=== PATIENT | male | born 1965 | race Caucasian/White ===

== ENCOUNTER 2017-01-31 05:36 | Inpatient (IN) ==
[2017-01-31] MEDS ORDERED: methylPREDNISolone 125 MG/2 ML VIAL IVP ONE (05:46)
[2017-01-31] MEDS ORDERED: Ipratropium/Albuterol Neb 3 ML IH ONE (05:46)
--- NOTE | 2017-01-31 05:51 | Emergency Department Note ---
Disposition Clinical Impression: COPD exacerbation Disposition: Admitted As Inpatient Condition: Fair SOB HPI - General Chief Complaint: ED Shortness of Breath/Dyspnea Stated Complaint: VINAY Time Seen by Provider: 01/31/17 05:46 Source: patient Mode of arrival: ambulatory Limitations: no limitations Nursing Notes Reviewed: Yes Vital Signs Reviewed: Yes - History of Present Illness Patient here for evaluation of dyspnea that started 3 days ago. Patient has had productive clear sputum. No fevers or chills. Patient's was seen at the [place] [facility] has been using his albuterol every 3 hours. Continuing to use his at home Symbicort. Is on 2 L of home oxygen continuously. Worsening dyspnea on exertion. No chest pain. - Related Data Home Medications Medication Instructions Recorded Confirmed Albuterol Inhaler 1 inh IH Q4H PRN 06/15/15 08/09/15 Albuterol Neb [Proventil Neb] 2.5 mg IH Q4HR 08/11/15 08/12/15 Previous Rx's Medication Instructions Recorded Albuterol Sulfate [Proair 90 mcg IH Q4H #1 aer.pow.ba 08/10/15 Respiclick] ALPRAZolam [Xanax 0.5 MG Tablet] 0.5 mg PO QID PRN #12 tablet 08/13/15 Hydrochlorothiazide [Microzide] 12.5 mg PO DAILY #30 capsule 08/13/15 Lactobacillus [Culturelle] 1 each PO BID #14 cap.sprink 08/13/15 Metoprolol [Lopressor] 25 mg PO BID #60 tablet 08/13/15 Nicotine Patch [Nicoderm] 21 mg TD DAILY #28 patch.td24 08/13/15 Symbicort 1 inh IH Q12H #0 08/13/15 levoFLOXacin [Levaquin] 500 mg PO DAILY #5 tablet 08/13/15 predniSONE [PredniSONE] 20 mg PO BIDWM #10 tablet 08/13/15 Allergies Allergy/AdvReac Type Severity Reaction Status Date / Time No Known Allergies Allergy Verified 08/09/15 23:34 Review of Systems: CONSTITUTIONAL: No weight loss, fever, chills, weakness or fatigue. HEENT: Eyes: No visual changes. Ears, Nose, Throat: No hearing loss, difficulty talking or unable to swallow. SKIN: No rash or itching. CARDIOVASCULAR: No chest pain, chest pressure or chest discomfort. No palpitations or edema. RESPIRATORY: shortness of breath, cough, clear sputum. GASTROINTESTINAL: No anorexia, nausea, vomiting or diarrhea. No abdominal pain or blood. GENITOURINARY: No burning on urination or hematuria. NEUROLOGICAL: No headache, dizziness, syncope, paralysis, ataxia, numbness or tingling in the extremities. No change in bowel or bladder control. MUSCULOSKELETAL: No muscle pain, back pain, joint pain or stiffness. Past Medical History - Past Medical History Medical history: Reports: COPD, GERD, hypertension, other Surgical history: Reports: non-contributory, other Psychiatric history: Reports: no psych history - Social History Smoking Status: Heavy tobacco smoker Smokeless Tobacco Status: No Alcohol use: Reports: none Drug use: Reports: none, other Physical Exam General appearance: NAD, conversant Eyes: anicteric sclerae, moist conjunctivae; PERRL HENT: Atraumatic; oropharynx clear with moist mucous membranes and no mucosal ulcerations Neck: Normal inspection; Trachea midline; FROM, supple Lungs: Diffuse wheezing throughout bilaterally. CV: RRR, no MRGs Abdomen: Soft, non-tender; no rebound or gaurding Extremities: No peripheral edema or extremity lymphadenopathy Skin: Normal temperature; no rash, ulcers or lesions Psych: Appropriate mood and affect Neuro: alert and oriented to person, place and time Course - Reevaluation(s) Reevaluation #1: She continuing to have tachypnea despite breathing treatments and steroids. Patient was placed on BiPAP and has been admitted to [facility]. the results are not currently ready but the chest x-ray has been read by myself does not show overt pneumonia. Patient has had a cough but only clear sputum production. No fevers. - Consultations Consultation #1: Discussed with hospitalist Dr. Cooper. Patient accepted to [place] for further evaluation and continued monitoring with BiPAP. Vital Signs Temperature 98.3 F 01/31/17 05:41 Pulse Rate 102 01/31/17 05:41 Respiratory Rate 20 01/31/17 05:41 Blood Pressure 160/102 01/31/17 05:41 O2 Sat by Pulse Oximetry 96 01/31/17 05:41 Temperature 98.3 F 01/31/17 05:41 Pulse Rate 105 01/31/17 06:52 Respiratory Rate 20 01/31/17 07:12 Blood Pressure 152/99 01/31/17 07:12 O2 Sat by Pulse Oximetry 96 01/31/17 06:55 Oxygen Delivery Oxygen Delivery Bipap Shortness of Breath/Dyspnea - Lab Data Result diagrams: 01/31/17 06:05 01/31/17 06:05 Lab Results 01/31/17 01/31/17 01/31/17 Range/Units 06:05 06:05 06:05 WBC 10.9 (4.3-11.1) K/mcL RBC 5.05 (4.19-5.50) M/mcL Hgb 13.7 (12.9-16.9) g/dL Hct 43.1 (37.5-50.1) % MCV 85.3 (83.0-100.0) fL MCH 27.1 L (28.0-33.3) pg MCHC 31.8 (31.6-35.5) g/dL RDW 15.6 H (11.5-14.5) % Plt Count 193 (140-400) K/mcL MPV 11.0 (9.4-12.4) fL Immature Gran % 0.5 (0-4) % Seg Neutrophils % 86.2 % Lymphocytes % 6.3 % Monocytes % 6.9 % Eosinophils % 0.0 % Basophils % 0.1 % Neutrophils # 9.4 H (1.6-8.9) K/mcL Lymphocytes # 0.7 (0.6-4.6) K/mcL Monocytes # 0.8 (0.0-1.3) K/mcL Eosinophils # 0.0 (0.0-0.6) K/mcL Basophils # 0.0 (0.0-0.2) K/mcL VBG pH (7.32-7.42) pH Units VBG pCO2 (41-51) mmHg VBG pO2 (25-40) mmHg VBG HCO3 (21-27) mEq/L Sodium 140 (136-145) mEq/L Potassium 3.7 (3.5-4.5) mEq/L Chloride 100 (98-109) mEq/L Carbon Dioxide 31 H (19-29) mEq/L BUN 23 (8-26) mg/dL Creatinine 0.91 (0.72-1.25) mg/dL Est GFR ( Amer) > 60 (> 60) Est GFR (Non-Af Amer) > 60 (> 60) BUN/Creatinine Ratio 25 (6-26) Glucose 138 H (70-99) mg/dL Calculated Osmolality 296 (280-300) Calcium 9.3 (8.6-10.8) mg/dL Troponin I 0.01 (0-0.03) ng/mL B-Natriuretic Peptide (0-100) pg/mL 01/31/17 01/31/17 Range/Units 06:05 06:05 WBC (4.3-11.1) K/mcL RBC (4.19-5.50) M/mcL Hgb (12.9-16.9) g/dL Hct (37.5-50.1) % MCV (83.0-100.0) fL MCH (28.0-33.3) pg MCHC (31.6-35.5) g/dL RDW (11.5-14.5) % Plt Count (140-400) K/mcL MPV (9.4-12.4) fL Immature Gran % (0-4) % Seg Neutrophils % % Lymphocytes % % Monocytes % % Eosinophils % % Basophils % % Neutrophils # (1.6-8.9) K/mcL Lymphocytes # (0.6-4.6) K/mcL Monocytes # (0.0-1.3) K/mcL Eosinophils # (0.0-0.6) K/mcL Basophils # (0.0-0.2) K/mcL VBG pH 7.36 (7.32-7.42) pH Units VBG pCO2 67 H (41-51) mmHg VBG pO2 35 (25-40) mmHg VBG HCO3 37.9 H (21-27) mEq/L Sodium (136-145) mEq/L Potassium (3.5-4.5) mEq/L Chloride (98-109) mEq/L Carbon Dioxide (19-29) mEq/L BUN (8-26) mg/dL Creatinine (0.72-1.25) mg/dL Est GFR ( Amer) (> 60) Est GFR (Non-Af Amer) (> 60) BUN/Creatinine Ratio (6-26) Glucose (70-99) mg/dL Calculated Osmolality (280-300) Calcium (8.6-10.8) mg/dL Troponin I (0-0.03) ng/mL B-Natriuretic Peptide 30 (0-100) pg/mL Attestation Statement - Attestation Attestation: I, Mayur Velazquez MD, personally evaluated this patient and discussed their management with the resident physician. I reviewed the resident's note and agree with the documented findings, medical decision making, and plan of care. 51-year-old male with history of COPD presents to the emergency department with a complaint of increased shortness of breath over the past 2-3 days. Some increased productive cough with white sputum. No fever. No chest pain. Patient is on home oxygen. He continues to smoke about a pack a day but states for the past 2 days he has been unable to smoke due to shortness of breath. He has never had to be admitted to the hospital for his COPD. On examination patient is a well-developed thin male in moderate respiratory distress. He is awake alert and oriented. There is no cyanosis or diaphoresis. Breath sounds are decreased with diffuse tight bilateral expiratory wheezes. Heart regular rate and rhythm. Abdomen soft and nontender with normal bowel sounds. No pedal edema. Labs reviewed. Chest x-ray negative. After treatment patient states he feels some better but continues to have respiratory distress with tight bilateral wheezes. The hospitalist, Dr. Cooper, was consulted and accepted admission of the patient.
[2017-01-31 06:12] LABS: Basophils % 0.1 %; Hematocrit 43.1 % (37.5-50.1); Hemoglobin 13.7 g/dL (12.9-16.9); Immature Granulocytes % 0.5 % (0-4); Lymphocytes # 0.7 K/mcL (0.6-4.6); Lymphocytes % 6.3 %; Mean Corpuscular HGB Conc 31.8 g/dL (31.6-35.5); Mean Corpuscular Hemoglobin 27.1 pg (28.0-33.3); Mean Corpuscular Volume 85.3 fL (83.0-100.0); Monocytes # 0.8 K/mcL (0.0-1.3); Monocytes % 6.9 %; Neutrophils # 9.4 K/mcL (1.6-8.9); Platelet Count 193 K/mcL (140-400); Red Blood Count 5.05 M/mcL (4.19-5.50); Red Cell Distribution Width 15.6 % (11.5-14.5); Segmented Neutrophils % 86.2 %
[2017-01-31 06:14] LABS: VBG HCO3 37.9 mEq/L (21-27); VBG PH 7.36 pH Units (7.32-7.42)
[2017-01-31 06:26] LABS: BUN/Creatinine Ratio 25 (6-26); Blood Urea Nitrogen 23 mg/dL (8-26); Calcium 9.3 mg/dL (8.6-10.8); Carbon Dioxide 31 mEq/L (19-29); Chloride 100 mEq/L (98-109); Glucose 138 mg/dL (70-99); Osmolality,Calculated 296 (280-300); Potassium 3.7 mEq/L (3.5-4.5); Sodium 140 mEq/L (136-145); eGFR For African Americans > 60 (> 60); eGFR For Non-African Americans > 60 (> 60)
[2017-01-31] MEDS ORDERED: Naloxone 0.4 MG/ML INJ IVP PRN (07:38)
[2017-01-31] MEDS ORDERED: Ipratropium/Albuterol Neb 3 ML IH PRN (07:40)
--- NOTE | 2017-01-31 08:04 | Internal Med History&Physical ---
Date of Encounter: 01/31/17 Time of Encounter: 07:45 Assessment and Plan (1) Acute exacerbation of chronic obstructive airways disease Current visit: Yes Status: Acute We will treat with IV steroids, bronchodilators, O2 supplementation. As patient has had chronic cough with mild clear sputum, no indication for antibiotics. If he does develop fever, we will start him on antibiotics. Admit inpatient. He will stay in hospital for at least 2 midnights. BiPAP as needed. (2) Tobacco abuse Current visit: Yes Status: Chronic Counseled about cessation. We will provide nicotine patch. (3) Acute and chronic respiratory failure with hypoxia Current visit: Yes Status: Acute Due to acute COPD exacerbation. Continue O2 supplementation. Internal Medicine - H&P: HPI Chief complaint: Shortness of breath Admitted From: Emergency Dept Plans for Post Hospital Care: Home History of present illness: Mr. Brink is a 51 year old male with history of chronic tobacco abuse, COPD, chronic respiratory failure, oxygen 2 L/m presented to the ER with complaints of shortness of breath for 2 days. Associated with cough productive of clear sputum. No fever chills or night sweats. No chest pain. Using nebulizers and bronchodilators at home without any improvement in symptoms. Past Med Surg Social Fam HX - Past Medical History Attestation: Yes The following information was validated with the patient. Source: patient, old records reviewed Medical history: COPD, GERD, hypertension, other Psychiatric history: no psych history - Past Surgical History Surgical History: non-contributory, other - Social History Smoking Status: Heavy tobacco smoker Smokeless Tobacco Status: No Alcohol use: none Drug use: none, other - Additional Family History Additional family history: Reviewed and found non contributory at this time Internal Medicine - H&P: Meds Albuterol Inhaler 1 inh IH Q4H PRN 06/15/15 [History] Albuterol Sulfate [Proair Respiclick] 90 mcg IH Q4H #1 aer.pow.ba 08/10/15 [Rx] Albuterol Neb [Proventil Neb] 2.5 mg IH Q4HR 08/11/15 [History] ALPRAZolam [Xanax 0.5 MG Tablet] 0.5 mg PO QID PRN #12 tablet 08/13/15 [Rx] Hydrochlorothiazide [Microzide] 12.5 mg PO DAILY #30 capsule 08/13/15 [Rx] Lactobacillus [Culturelle] 1 each PO BID #14 cap.sprink 08/13/15 [Rx] Metoprolol [Lopressor] 25 mg PO BID #60 tablet 08/13/15 [Rx] Nicotine Patch [Nicoderm] 21 mg TD DAILY #28 patch.td24 08/13/15 [Rx] Symbicort 1 inh IH Q12H #0 08/13/15 [Rx] levoFLOXacin [Levaquin] 500 mg PO DAILY #5 tablet 08/13/15 [Rx] predniSONE [PredniSONE] 20 mg PO BIDWM #10 tablet 08/13/15 [Rx] Allergies No Known Allergies Allergy (Verified 08/09/15 23:34) All Systems PM: A 10-system review of systems was performed and is negative for pertinent findings except as documented above in the HPI. - Constitutional Constitutional: no chills, no fever(s), no night sweats - EENT Eyes: no change in vision, no discharge, no pain, no photophobia Ears: no ear discharge, no ear pain, no tinnitus Nose, mouth and throat: no dysphagia, no nasal discharge, no neck pain, no sore throat - Cardiovascular Cardiovascular ROS IM: dyspnea, no chest pain, no diaphoresis, no lightheadedness, no palpitations, no syncope - Respiratory Respiratory: cough, dyspnea, wheezing, no excessive phlegm production - Gastrointestinal Gastrointestinal: no abdominal pain, no diarrhea, no hematemesis, no hematochezia, no melena, no nausea, no vomiting - Musculoskeletal Musculoskeletal ROS IM: no numbness, no tingling - Integumentary Integumentary IM: no rash, no unusual bruising - Neurological Neurological ROS: no confusion, no convulsions, no focal weakness, no numbness, no tingling, no tremor(s) - Hematologic/Lymphatic Hematologic/Lymphatic: no easy bruising - Constitutional Vitals: Temp Pulse Resp BP Pulse Ox 98.3 F 105 20 152/99 96 01/31/17 05:41 01/31/17 06:52 01/31/17 07:12 01/31/17 07:12 01/31/17 06:55 General appearance: Present: cooperative, mild distress, A&O X 3, answers questions appropriately - Eye Eye exam: Present: EOMI, PERRL, conjuntiva pink, sclera anicteric - Neck Neck exam general surgery: Present: supple, trachea midline. Absent: lymphadenopathy - Respiratory Respiratory exam: Present: accessory muscle use, decreased breath sounds, prolonged expiratory phase, rhonchi, wheezes. Absent: rales - Cardiovascular Cardiovascular exam: Present: RRR, +S1, +S2. Absent: diastolic murmur, gallop, rubs, systolic murmur - GI/Abdominal GI/Abdominal exam: Present: normal bowel sounds, soft, no peritoneal signs. Absent: distended, tenderness - Extremities Exam Extremities exam: Present: warm, radial pulses palpable and symetrical. Absent : calf tenderness, cyanotic, pedal edema - Neurological Exam Neurological exam: Present: alert, oriented X3, no focal deficits, strengths equal and symetr throughout. Absent: facial droop, speech deficit - Skin Skin exam: Present: dry, intact Internal Med - H&P Results - Labs CBC & Chem 7: 01/31/17 06:05 01/31/17 06:05 - Impressions Impressions Chest X-Ray 01/31/17 05:46 IMPRESSION: Negative portable chest. D/ / Viktor Johnson MD / Viktor Johnson MD Interpreting Provider: Viktor Johnson MD
[2017-01-31] MEDS: Ipratropium/Albuterol Neb 3 ML IH SCH ×5 (08:08→23:21)
[2017-01-31] MEDS: Acetaminophen 325 MG TABLET PO PRN ×2 (08:46→17:34)
[2017-01-31] MEDS: methylPREDNISolone 125 MG/2 ML VIAL IVP SCH ×2 (08:46→15:47)
[2017-01-31] MEDS: Nicotine 21 MG PATCH.TD24 TD SCH (09:41)
[2017-01-31] MEDS: ALPRAZolam 0.5 MG TABLET PO PRN ×2 (15:47→22:00)
[2017-02-01] MEDS: methylPREDNISolone 125 MG/2 ML VIAL IVP SCH ×2 (00:01→08:03)
[2017-02-01] MEDS ORDERED: cloNIDine HCl 0.1 MG TABLET PO ONE (00:15)
[2017-02-01] MEDS: amLODIPine 5 MG TABLET PO SCH ×2 (04:05→08:02)
[2017-02-01] MEDS: Ipratropium/Albuterol Neb 3 ML IH SCH ×3 (04:32→11:20)
[2017-02-01] MEDS: ALPRAZolam 0.5 MG TABLET PO PRN (04:59)
[2017-02-01 05:04] LABS: Basophils % 0.1 %; Hemoglobin 13.6 g/dL (12.9-16.9); Immature Granulocytes % 0.6 % (0-4); Lymphocytes # 0.8 K/mcL (0.6-4.6); Lymphocytes % 4.7 %; Mean Corpuscular HGB Conc 31.6 g/dL (31.6-35.5); Mean Corpuscular Hemoglobin 27.5 pg (28.0-33.3); Mean Platelet Volume 11.3 fL (9.4-12.4); Monocytes % 2.1 %; Neutrophils # 15.3 K/mcL (1.6-8.9); Platelet Count 173 K/mcL (140-400); Red Blood Count 4.94 M/mcL (4.19-5.50); Red Cell Distribution Width 15.6 % (11.5-14.5); Segmented Neutrophils % 92.5 %
[2017-02-01 05:06] LABS: Monocytes # 0.4 K/mcL (0.0-1.3)
[2017-02-01 05:21] LABS: BUN/Creatinine Ratio 26 (6-26); Blood Urea Nitrogen 25 mg/dL (8-26); Calcium 9.3 mg/dL (8.6-10.8); Carbon Dioxide 28 mEq/L (19-29); Chloride 103 mEq/L (98-109); Glucose 148 mg/dL (70-99); Osmolality,Calculated 299 (280-300); Potassium 4.4 mEq/L (3.5-4.5); Sodium 141 mEq/L (136-145); eGFR For African Americans > 60 (> 60); eGFR For Non-African Americans > 60 (> 60)
[2017-02-01] MEDS ORDERED: *HR* Enoxaparin 40 MG/0.4 ML SYRINGE SQ SCH (06:00)
[2017-02-01 07:30] VITALS: BP 147/89
[2017-02-01] MEDS: Nicotine 21 MG PATCH.TD24 TD SCH (08:03)
--- NOTE | 2017-02-01 09:41 | Electrocardiograph Report ---
[address] [address] Test Date: 2017-01-31 Pat Name: Yogi Brink Department: 103 Room: 2N11 Gender: M House Mother: TAURUS : 1965 Requested By: Byron Gomez Order Number: [id number] Reading MD: Stephanie Lujan Measurements Intervals [place] Rate: 94 P: 84 [place]: 144 QRS: 80 QRSD: 114 T: 76 QT: 384 QTc: 436 Interpretive Statements SINUS RHYTHM INTRAVENTRICULAR CONDUCTION DELAY Electronically Signed On 02-01-2017 9:40:20 EDT by Stephanie Lujan
--- NOTE | 2017-02-01 11:15 | Internal Med Progress Note ---
Date of Encounter: 02/01/17 Time of Encounter: 11:11 - Assessment and plan (1) Acute and chronic respiratory failure with hypoxia Current Visit: Yes Status: Acute Assessment and plan: Secondary to COPD exacerbation continue IV steroids and bronchodilator support O2 supplementation will continue to closely monitor respiratory status (2) Acute exacerbation of chronic obstructive airways disease Current Visit: Yes Status: Acute Assessment and plan: as listed above (3) DVT prophylaxis Current Visit: No Status: Resolved Assessment and plan: Lovenox SQ (4) Tobacco abuse Current Visit: Yes Status: Chronic Assessment and plan: Smoking cessation counseling provided patient refusing to quit nicotine supplementation therapy provided - Subjective Interval history: Patient seen and examined at bedside. Resting comfortably in bed and reports of feeling better compared to previous day. Noted to have b/l expiratory wheezing however denies any discomfort at this time. - Constitutional Vitals: Temp Pulse Resp BP Pulse Ox 97.9 F 81 18 147/89 95 02/01/17 07:28 02/01/17 07:28 02/01/17 07:37 02/01/17 07:28 02/01/17 07:37 General appearance: Present: cooperative, A&O X 3, no acute distress, underweight, answers questions appropriately - Head Head exam: Present: atraumatic, normocephalic - Eye Eye exam: Present: conjuntiva pink, sclera anicteric - Respiratory Respiratory exam: Present: wheezes (expiratory wheezing). Absent: respiratory distress - Cardiovascular Cardiovascular exam: Present: RRR, +S1, +S2. Absent: diastolic murmur, gallop, rubs, systolic murmur - GI/Abdominal GI/Abdominal exam: Present: normal bowel sounds, soft, no peritoneal signs. Absent: distended, tenderness - Extremities Exam Extremities exam: Present: warm, radial pulses palpable and symetrical. Absent : calf tenderness, cyanotic, pedal edema - Neurological Exam Neurological exam: Present: alert, oriented X3 - Psychiatric Psychiatric exam: Present: normal affect, normal mood Internal Medicine: Result - Labs CBC & Chem 7: 02/01/17 04:49 02/01/17 04:49 Labs: Short CBC 02/01/17 Range/Units 04:49 WBC 16.5 H D (4.3-11.1) K/mcL Hgb 13.6 (12.9-16.9) g/dL Hct 43.0 (37.5-50.1) % Plt Count 173 (140-400) K/mcL Neutrophils # 15.3 H (1.6-8.9) K/mcL BMP 02/01/17 04:49 Sodium 141 Potassium 4.4 Chloride 103 Carbon Dioxide 28 BUN 25 Creatinine 0.96 Glucose 148 H Calcium 9.3 Consult Discharge Plan - Plan Referrals: NO,PCP [Primary Care Provider] -
[2017-02-01] MEDS ORDERED: methylPREDNISolone 125 MG/2 ML VIAL IVP SCH (20:00)
--- NOTE | 2017-02-06 00:17 | Discharge Summary ---
Date of Encounter: 02/01/17 Time of Encounter: 11:11 - Discharge Diagnosis (1) Acute and chronic respiratory failure with hypoxia Priority: Primary Status: Acute (2) Acute exacerbation of chronic obstructive airways disease Priority: Primary Status: Acute (3) DVT prophylaxis Priority: Secondary Status: Resolved (4) Tobacco abuse Priority: Secondary Status: Chronic - Discharge Medications Prescriptions: predniSONE [PredniSONE] 40 mg PO DAILY #7 tablet Home Medications: Albuterol Neb [Proventil Neb] 2.5 mg IH Q4HR PRN 08/11/15 [History] Albuterol Sulfate [Proair Respiclick] 1 - 2 puff IH Q4H PRN 01/31/17 [History] Oxygen 2 l .ROUTE AD 01/31/17 [History] Tamsulosin HCl [Flomax] 0.4 mg PO DAILY 01/31/17 [History] predniSONE [PredniSONE] 40 mg PO DAILY #7 tablet 02/01/17 [Rx] Allergies/Adverse Reactions: Allergies No Known Allergies Allergy (Verified 08/09/15 23:34) Date of admission: 01/31/17 07:38 Primary care physician: PCP NO - Patient Status Disposition: Left Against Medical Advice Condition: Fair - Discharge Instructions Follow Up With: NO,PCP [Primary Care Provider] - Hospital course: Mr. Brink is a 51 year old male - Time Spent with Patient Total time spent providing and/or coordinating discharge services: - Constitutional Vitals: Temp Pulse Resp BP Pulse Ox 97.9 F 81 20 147/89 85 02/01/17 07:28 02/01/17 07:28 02/01/17 11:20 02/01/17 07:28 02/01/17 11:20 General appearance: Present: cooperative, A&O X 3, no acute distress, underweight, answers questions appropriately
== END 2017-02-01 12:08 | disposition left against medical advice (07) | DRG 140 ==
LOC: 2NNU 05:36 → EMEROO 05:36 → 2NNU 07:39
PROVIDERS: ADMIT Internal Medicine Sleep Medicine; ATTEND Internal Medicine

== ENCOUNTER 2017-09-25 00:40 | Inpatient (IN) ==
[2017-09-25 01:09] LABS: Basophils # 0.1 K/mcL (0.0-0.2); Basophils % 0.7 %; Eosinophils # 0.3 K/mcL (0.0-0.6); Eosinophils % 3.1 %; Hematocrit 48.6 % (37.5-50.1); Hemoglobin 15.5 g/dL (12.9-16.9); Immature Granulocytes % 0.3 % (0-4); Lymphocytes # 2.1 K/mcL (0.6-4.6); Lymphocytes % 21.1 %; Mean Corpuscular HGB Conc 31.9 g/dL (31.6-35.5); Mean Corpuscular Hemoglobin 28.1 pg (28.0-33.3); Mean Corpuscular Volume 88.2 fL (83.0-100.0); Mean Platelet Volume 11.1 fL (9.4-12.4); Monocytes # 1.1 K/mcL (0.0-1.3); Monocytes % 11.2 %; Neutrophils # 6.3 K/mcL (1.6-8.9); Platelet Count 169 K/mcL (140-400); Red Blood Count 5.51 M/mcL (4.19-5.50); Segmented Neutrophils % 63.6 %
[2017-09-25 01:30] LABS: BUN/Creatinine Ratio 13 (6-26); Blood Urea Nitrogen 17 mg/dL (6-20); Calcium 9.2 mg/dL (8.6-10.3); Carbon Dioxide 30 mEq/L (23-29); Chloride 104 mEq/L (98-107); Glucose 108 mg/dL (70-105); Osmolality,Calculated 294 (280-300); Potassium 3.5 mEq/L (3.5-5.1); Sodium 141 mEq/L (136-145); eGFR For African Americans > 60 (> 60); eGFR For Non-African Americans > 60 (> 60)
[2017-09-25] MEDS ORDERED: Aspirin 81 MG TAB.CHEW PO ONE (02:37)
--- NOTE | 2017-09-25 03:19 | Emergency Department Note ---
Disposition Clinical Impression: Elevated troponin Dyspnea Qualifiers: Dyspnea type: unspecified Qualified Code(s): R06.00 - Dyspnea, unspecified Disposition: Admitted As Inpatient Condition: Good [facility]errals: [facility] [Primary Care Provider[facility] - Forms: ED Satisfaction Letter Time of Disposition: 03:27 SOB HPI - General Chief Complaint: ED Shortness of Breath/Dyspnea Stated Complaint: brook Time Seen by Provider: 09/25/17 00:53 Source: patient, EMS Limitations: no limitations Nursing Notes Reviewed: Yes Vital Signs Reviewed: Yes - History of Present Illness Patient is a 51-year-old male smoker with known history of COPD presents with difficulty breathing. He mentions that he has had some difficulty breathing over the past 2 or 3 weeks, however this changed acutely around midnight just prior to arrival He mentions he had awoken with a sensation of shortness of breath. He does mention that he uses oxygen at home which she has not been lately. Typically with his difficulty breathing he has some improvement with his albuterol breathing treatments, but has not had any improvement today. He denies any chest pain, diaphoresis, head or neck pain, palpitations, fevers, cough, recent illness. - Related Data Home Medications Medication Instructions Recorded Confirmed Albuterol Neb [Proventil Neb] 2.5 mg IH Q4HR PRN 08/11/15 01/31/17 Albuterol Sulfate [Proair 1 - 2 puff IH Q4H PRN 01/31/17 01/31/17 Respiclick] Oxygen 2 l .ROUTE AD 01/31/17 01/31/17 Tamsulosin HCl [Flomax] 0.4 mg PO DAILY 01/31/17 01/31/17 Previous Rx's Medication Instructions Recorded predniSONE [PredniSONE] 40 mg PO DAILY #7 tablet 02/01/17 Levofloxacin [Levaquin] 750 mg PO DAILY #5 tablet 09/04/17 predniSONE [PredniSONE] 40 mg PO DAILY #10 tablet 09/04/17 Allergies Allergy/AdvReac Type Severity Reaction Status Date / Time No Known Allergies Allergy Verified 08/09/15 23:34 Review of Systems: All systems ED: reviewed and negative except as stated. Constitutional: Denies: fever, chills ENT ED: Denies: throat pain Respiratory: Denies: dyspnea, wheezes Gastrointestinal: Denies: nausea, vomiting Musculoskeletal: Denies: back pain, neck pain Integumentary: Denies: rash Neurological: Denies: headache, weakness Endocrine: Denies: fatigue Hematological/Lymphatic: Denies: easy bleeding Allergic/Immunologic: Denies: facial swelling All systems ED: reviewed and negative except as stated. Review of Systems: As Per HPI Cardiovascular: Reports: as per HPI. Denies: orthopnea, edema, syncope Past Medical History - Past Medical History Medical history: Reports: COPD, GERD, hypertension, other Surgical history: Reports: non-contributory, other Psychiatric history: Reports: no psych history - Social History Smoking Status: Heavy tobacco smoker Smokeless Tobacco Status: No Alcohol use: Reports: none Drug use: Reports: none, other Physical Exam - General Limitations: no limitations General appearance: alert, in no apparent distress - Head Head exam: normocephalic - Eye Eye exam: Present: EOMI. Absent: conjunctival injection - ENT ENT exam: normal oropharynx, TM's normal bilaterally - Neck Neck exam: Present: normal inspection, full ROM - Chest Chest inspection: Present: normal inspection, symmetric chest wall rise - Respiratory Respiratory exam: Present: normal lung sounds bilaterally, wheezes. Absent: respiratory distress - Cardiovascular Cardiovascular exam: Present: regular rate, normal rhythm - Abdominal Exam Abdominal exam: Present: soft, Non-Tender - Extremities Exam Extremities exam: Present: normal inspection, full ROM, normal capillary refill. Absent: pedal edema - Back Exam Back exam: Present: normal inspection, full ROM. Absent: CVA tenderness (R), CVA tenderness (L) - Neurological Exam Neurological exam: Present: alert, oriented X3 - Psychiatric Psychiatric exam: Present: normal affect, normal mood - Skin Skin exam: Present: warm, dry, intact, normal color. Absent: rash, cyanosis, diaphoresis Course Course Narrative: 51-year-old male smoker with known history of COPD presents with dyspnea that has worsened today. Protocol was ordered upon patient's arrival to the department area he does have an elevated troponin. No Known history of chronic kidney disease. EKG shows sinus rhythm. Nonspecific T-wave abnormalities. Patient denies any chest pain. On examination no acute distress, no cyanosis, no diaphoresis. No bilateral lower extremity edema. Appears comfortable in bed. Discussed with Dr. Velazquez who agreed with admission due to dyspnea, and elevated troponin. ASA ordered. - Reevaluation(s) Reevaluation #1: Pt had negative stress test in 2014. Pt denies any other cardiac eval since then. He remains pain free. Vitals stable. Pt discussed with and accepted by hospitalist Dr. Webb Time: 03:28 Vital Signs Temperature 97.6 F 09/25/17 00:43 Pulse Rate 90 09/25/17 00:43 Respiratory Rate 22 09/25/17 00:43 Blood Pressure 169/98 09/25/17 00:43 O2 Sat by Pulse Oximetry 94 09/25/17 00:43 Temperature 97.6 F 09/25/17 00:43 Pulse Rate 71 09/25/17 04:38 Respiratory Rate 20 09/25/17 04:38 Blood Pressure 161/111 09/25/17 04:38 O2 Sat by Pulse Oximetry 95 09/25/17 04:38 Oxygen Delivery Oxygen Delivery Nasal Cannula Shortness of Breath/Dyspnea - MDM Narrative Medical decision making narrative: Laboratory Tests 09/25/17 09/25/17 09/25/17 00:45 00:45 00:45 WBC 10.0 RBC 5.51 H Hgb 15.5 Hct 48.6 MCV 88.2 MCH 28.1 MCHC 31.9 RDW 14.0 Plt Count 169 MPV 11.1 Immature Gran % 0.3 Seg Neutrophils % 63.6 Lymphocytes % 21.1 Monocytes % 11.2 Eosinophils % 3.1 Basophils % 0.7 Neutrophils # 6.3 Lymphocytes # 2.1 Monocytes # 1.1 Eosinophils # 0.3 Basophils # 0.1 Sodium 141 Potassium 3.5 Chloride 104 Carbon Dioxide 30 H BUN 17 Creatinine 1.27 Est GFR ( Amer) > 60 Est GFR (Non-Af Amer) > 60 BUN/Creatinine Ratio 13 Glucose 108 H Calculated Osmolality 294 Lactic Acid 1.8 Calcium 9.2 Troponin I B-Natriuretic Peptide 09/25/17 09/25/17 00:45 00:45 WBC RBC Hgb Hct MCV MCH MCHC RDW Plt Count MPV Immature Gran % Seg Neutrophils % Lymphocytes % Monocytes % Eosinophils % Basophils % Neutrophils # Lymphocytes # Monocytes # Eosinophils # Basophils # Sodium Potassium Chloride Carbon Dioxide BUN Creatinine Est GFR ( Amer) Est GFR (Non-Af Amer) BUN/Creatinine Ratio Glucose Calculated Osmolality Lactic Acid Calcium Troponin I 0.05 H* B-Natriuretic Peptide 215 H Chest X-Ray 09/25/17 00:53 IMPRESSION: No acute cardiopulmonary abnormality. Emphysema/COPD. D/ / Elie Blake MD / Elie Blake MD Interpreting Provider: Elie Blake MD - Medical Records Medical records reviewed: Yes I reviewed the patient's medical records. - Lab Data Lab results reviewed: Yes I reviewed the patient's lab results. Result diagrams: 09/25/17 00:45 09/25/17 00:45 Lab Results 09/25/17 09/25/17 09/25/17 Range/Units 00:45 00:45 00:45 WBC 10.0 (4.3-11.1) K/mcL RBC 5.51 H (4.19-5.50) M/mcL Hgb 15.5 (12.9-16.9) g/dL Hct 48.6 (37.5-50.1) % MCV 88.2 (83.0-100.0) fL MCH 28.1 (28.0-33.3) pg MCHC 31.9 (31.6-35.5) g/dL RDW 14.0 (11.5-14.5) % Plt Count 169 (140-400) K/mcL MPV 11.1 (9.4-12.4) fL Immature Gran % 0.3 (0-4) % Seg Neutrophils % 63.6 % Lymphocytes % 21.1 % Monocytes % 11.2 % Eosinophils % 3.1 % Basophils % 0.7 % Neutrophils # 6.3 (1.6-8.9) K/mcL Lymphocytes # 2.1 (0.6-4.6) K/mcL Monocytes # 1.1 (0.0-1.3) K/mcL Eosinophils # 0.3 (0.0-0.6) K/mcL Basophils # 0.1 (0.0-0.2) K/mcL Sodium 141 (136-145) mEq/L Potassium 3.5 (3.5-5.1) mEq/L Chloride 104 (98-107) mEq/L Carbon Dioxide 30 H (23-29) mEq/L BUN 17 (6-20) mg/dL Creatinine 1.27 (0.70-1.30) mg/dL Est GFR ( Amer) > 60 (> 60) Est GFR (Non-Af Amer) > 60 (> 60) BUN/Creatinine Ratio 13 (6-26) Glucose 108 H (70-105) mg/dL Calculated Osmolality 294 (280-300) Lactic Acid 1.8 (0.5-2.2) mmol/L Calcium 9.2 (8.6-10.3) mg/dL Troponin I (< 0.04) ng/mL B-Natriuretic Peptide (Less than 100) pg/mL 09/25/17 09/25/17 Range/Units 00:45 00:45 WBC (4.3-11.1) K/mcL RBC (4.19-5.50) M/mcL Hgb (12.9-16.9) g/dL Hct (37.5-50.1) % MCV (83.0-100.0) fL MCH (28.0-33.3) pg MCHC (31.6-35.5) g/dL RDW (11.5-14.5) % Plt Count (140-400) K/mcL MPV (9.4-12.4) fL Immature Gran % (0-4) % Seg Neutrophils % % Lymphocytes % % Monocytes % % Eosinophils % % Basophils % % Neutrophils # (1.6-8.9) K/mcL Lymphocytes # (0.6-4.6) K/mcL Monocytes # (0.0-1.3) K/mcL Eosinophils # (0.0-0.6) K/mcL Basophils # (0.0-0.2) K/mcL Sodium (136-145) mEq/L Potassium (3.5-5.1) mEq/L Chloride (98-107) mEq/L Carbon Dioxide (23-29) mEq/L BUN (6-20) mg/dL Creatinine (0.70-1.30) mg/dL Est GFR ( Amer) (> 60) Est GFR (Non-Af Amer) (> 60) BUN/Creatinine Ratio (6-26) Glucose (70-105) mg/dL Calculated Osmolality (280-300) Lactic Acid (0.5-2.2) mmol/L Calcium (8.6-10.3) mg/dL Troponin I 0.05 H* (< 0.04) ng/mL B-Natriuretic Peptide 215 H (Less than 100) pg/mL - Radiology Data Radiology results reviewed: Yes I reviewed the patient's radiology results. - EKG Data EKG attestation: Yes I reviewed and interpreted this EKG. EKG results narrative: Sinus rhythm, nonspecific T waves, ventricular rate 59, DE interval 143, QRS duration 100, QT 385 QTc 432. Compared with EKG from 01/31/2017 Attestation Statement - Attestation Attestation: I, Mayur Velazquez MD, personally evaluated this patient and discussed their management with the midlevel provicer, PAC/[facility]. I reviewed the midlevel provider 's note and agree with the documented findings, medical decision making, and plan of care. 51-year-old male presents to the emergency department with a complaint of increased shortness of breath over the past few weeks but acutely worse tonight. Some increased cough with thick sputum. No fever. Some pleuritic chest pain with coughing. Patient has a history of COPD and is on home oxygen at 2 L/m. On examination patient is a well-developed thin male in no acute distress. He is alert and oriented 3. There is no cyanosis or diaphoresis. Chest is nontender to palpation. Breath sounds are decreased bilaterally with scattered bilateral expiratory wheezes. Heart regular rate and rhythm. Abdomen is soft and nontender with normal bowel sounds. No pedal edema. Labs reviewed. Troponin 0.05. BNP 215. EKG shows a normal sinus rhythm with no acute ST segment elevation or depression. Chest x-ray shows COPD but no acute abnormality. The hospitalist, Dr. Webb, was consulted and accepted admission of the patient.
[2017-09-25] MEDS ORDERED: Naloxone 0.4 MG/ML INJ IVP PRN (05:52)
[2017-09-25] MEDS ORDERED: Acetaminophen 325 MG TABLET PO PRN (05:52)
[2017-09-25] MEDS ORDERED: Ipratropium/Albuterol Neb 3 ML IH PRN (05:55)
--- NOTE | 2017-09-25 06:04 | Internal Med History&Physical ---
Date of Encounter: 09/25/17 Time of Encounter: 05:00 Assessment and Plan (1) Elevated troponin Current visit: Yes Status: Acute Pt has mild elevated troponin and mild elevated BNP. Has SOB, no chest pain. EKG unremarkable. - Will track 3 sets of troponin to r/o ACS, consider demand ischemia now. - Continuous cardiac monitoring - Echo in AM (2) Acute exacerbation of chronic obstructive airways disease Current visit: No Status: Acute Pt has increased cough with SOB, has wheezes consider COPD exacerbation - Flu test to r/o Flu - Sputum culture - Place pt on levaquin, prednisone, and duoneb - Cont O2, continuous Oximetry monitoring. (3) Tobacco abuse Current visit: No Status: Chronic Smoking cessation education. Pt refuse nicotine patch. (4) DVT prophylaxis Current visit: No Status: Resolved Heparin SC (5) BPH (benign prostatic hyperplasia) Current visit: Yes Status: Acute Cont home meds. Qualifiers: Lower urinary tract symptom presence: unspecified whether lower urinary tract symptoms present Qualified Code(s): N40.0 - Benign prostatic hyperplasia without lower urinary tract symptoms Internal Medicine - H&P: HPI Chief complaint: SOB Admitted From: Home Plans for Post Hospital Care: Home History of present illness: Mr. Brink is a 51 year old male with Hx of COPD on home oxygen present to ER for SOB for 2 days. Pt denies fever, runny nose. He has increased cough with sometimes greenish sputum. Pt c/o mild sore throat and muscle ache. He denies chest pain, nausea, but said sometimes having diaphoresis. In ER, CXR unremarkable (shows emphysema), EKG shows sinus rtythm w/o significant ST-T changes. However, his first troponin is 0.05. Pt was admitted to r/o ACS. Past Med Surg Social Fam HX - Past Medical History Medical history: COPD, GERD, hypertension, other Psychiatric history: no psych history - Past Surgical History Surgical History: non-contributory, other - Social History Smoking Status: Heavy tobacco smoker Smokeless Tobacco Status: No Alcohol use: none Drug use: none, other - Family History Mother History Unknown: Yes Living Status: Still Living Father Living Status: Cause of : CHF Hx Family Cardiac Disorders: Yes (CHF) Internal Medicine - H&P: Meds Albuterol Neb [Proventil Neb] 2.5 mg IH Q4HR PRN 01/02/16 [History] Albuterol Sulfate [Proair Respiclick] 1 - 2 puff IH Q4H PRN 01/31/17 [History] Oxygen 2 l .ROUTE AD 01/31/17 [History] Tamsulosin HCl [Flomax] 0.4 mg PO DAILY 01/31/17 [History] predniSONE [PredniSONE] 40 mg PO DAILY #7 tablet 02/01/17 [Rx] Levofloxacin [Levaquin] 750 mg PO DAILY #5 tablet 09/04/17 [Rx] predniSONE [PredniSONE] 40 mg PO DAILY #10 tablet 09/04/17 [Rx] 3 Allergy/AdvReac Type Severity Reaction Status Date / Time No Known Allergies Allergy Verified 08/09/15 23:34 All Systems PM: A 10-system review of systems was performed and is negative for pertinent findings except as documented above in the HPI. - Constitutional Vitals: Temp Pulse Resp BP Pulse Ox 97.6 F 71 20 161/111 95 09/25/17 00:43 09/25/17 04:38 09/25/17 04:38 09/25/17 04:38 09/25/17 05:30 General appearance: Present: A&O X 3, no acute distress, answers questions appropriately - Head Head exam: Present: atraumatic, normocephalic - Eye Eye exam: Present: PERRL, conjuntiva pink, sclera anicteric Pupils: Present: PERRL - Neck Neck exam general surgery: Present: supple, trachea midline. Absent: lymphadenopathy - Respiratory Respiratory exam: Present: CTAB, wheezes (scattered wheezes b/l). Absent: accessory muscle use, rales, rhonchi - Cardiovascular Cardiovascular exam: Present: RRR, +S1, +S2. Absent: diastolic murmur, gallop, rubs, systolic murmur - GI/Abdominal GI/Abdominal exam: Present: normal bowel sounds, soft, no peritoneal signs. Absent: distended, tenderness - Extremities Exam Extremities exam: Present: warm, radial pulses palpable and symmetrical. Absent : calf tenderness, cyanotic, pedal edema - Neurological Exam Neurological exam: Present: CN II-XII intact, oriented X3, no focal deficits. Absent: pronater drift, facial droop, speech deficit - Skin Skin exam: Present: dry, intact Internal Med - H&P Results - Labs CBC & Chem 7: 09/25/17 00:45 09/25/17 00:45
[2017-09-25] MEDS: predniSONE 20 MG TABLET PO SCH ×2 (08:03→11:16)
[2017-09-25] MEDS: Levofloxacin 750 MG/150 ML 750 MG/150 ML BAG IVPB SCH (08:04)
[2017-09-25] MEDS: *HR* Heparin 5,000 UNIT/ML VIAL SQ SCH ×2 (08:04→17:51)
--- NOTE | 2017-09-25 11:37 | Event Note ---
Date of Encounter: 09/25/17 Time of Encounter: 11:32 Pt seen and examined at bedside. Agree w Hospitalist's H&P. My documentation here is in addition to H&p fndings He is a chronic smoker and COPDer who does not have established PCP. is hypoxic- pts O2 fell off while sleeping and per RN he dropped to 88. He also has cough w greenish phlegm production and wheezing profusely on exam. he is hypertensive to 160s SBP in ED. continue levaquin Resume hydralazine 25 - home medication also start PRN IV hydralazine leaning towards trial of IV solumedrol given he's still symptomatic. may give him one dose 40 mg and monitor closely. will sign out to day team as well. SURI
[2017-09-25] MEDS: Ipratropium/Albuterol Neb 3 ML IH SCH ×4 (11:39→22:12)
[2017-09-25] MEDS ORDERED: MethylPREDNISolone 40 MG/ML VIAL IVP ONE (11:40)
[2017-09-25] MEDS: hydroCHLOROthiazide 25 MG TABLET PO SCH (13:37)
[2017-09-26] MEDS: Ipratropium/Albuterol Neb 3 ML IH SCH ×4 (03:45→22:15)
[2017-09-26 03:55] LABS: Basophils % 0.2 %; Hematocrit 48.4 % (37.5-50.1); Hemoglobin 15.4 g/dL (12.9-16.9); Immature Granulocytes % 0.3 % (0-4); Lymphocytes % 8.1 %; Mean Corpuscular HGB Conc 31.8 g/dL (31.6-35.5); Mean Corpuscular Hemoglobin 27.8 pg (28.0-33.3); Mean Corpuscular Volume 87.5 fL (83.0-100.0); Mean Platelet Volume 11.4 fL (9.4-12.4); Monocytes # 0.5 K/mcL (0.0-1.3); Monocytes % 4.4 %; Neutrophils # 10.2 K/mcL (1.6-8.9); Platelet Count 208 K/mcL (140-400); Red Blood Count 5.53 M/mcL (4.19-5.50); Red Cell Distribution Width 13.9 % (11.5-14.5)
[2017-09-26 04:34] LABS: BUN/Creatinine Ratio 22 (6-26); Blood Urea Nitrogen 28 mg/dL (6-20); Calcium 9.6 mg/dL (8.6-10.3); Carbon Dioxide 26 mEq/L (23-29); Chloride 104 mEq/L (98-107); Glucose 111 mg/dL (70-105); Magnesium 1.8 mg/dL (1.6-2.6); Osmolality,Calculated 292 (280-300); Potassium 4.4 mEq/L (3.5-5.1); Sodium 138 mEq/L (136-145); eGFR For African Americans > 60 (> 60); eGFR For Non-African Americans 59 (> 60)
[2017-09-26] MEDS: *HR* Heparin 5,000 UNIT/ML VIAL SQ SCH ×2 (05:13→18:37)
--- NOTE | 2017-09-26 09:08 | Internal Med Progress Note ---
Date of Encounter: 09/26/17 Time of Encounter: 09:05 - Assessment and plan (1) Acute exacerbation of chronic obstructive airways disease Current Visit: No Status: Acute Assessment and plan: The patient continues to wheeze significantly. I will add IV steroids today. Continue Levaquin. Continue with nebs. We will add Robitussin. Wean down oxygen as tolerated. (2) BPH (benign prostatic hyperplasia) Current Visit: Yes Status: Acute Assessment and plan: Continue tamsulosin Qualifiers: Lower urinary tract symptom presence: unspecified whether lower urinary tract symptoms present Qualified Code(s): N40.0 - Benign prostatic hyperplasia without lower urinary tract symptoms (3) Elevated troponin Current Visit: Yes Status: Acute Assessment and plan: No EKG changes. No chest pain. Troponin is consistently at 0.05-0.04. We will continue to monitor. Echo results noted (4) Acute renal insufficiency Current Visit: No Status: Resolved Assessment and plan: We will start patient on gentle hydration. Check labs in the morning. Avoid nephrotoxins. (5) DVT prophylaxis Current Visit: No Status: Resolved Assessment and plan: Heparin subcutaneous - Subjective Interval history: Patient was seen and examined. No acute events. He continues to feel short of breath. He uses about 2-3 L at home. Continues to be on 2-3 L. Patient is audibly wheezing. Having a dry cough. Afebrile. Admitted with COPD exacerbation. - Constitutional Vitals: Temp Pulse Resp BP Pulse Ox 97.6 F 107 18 166/92 94 09/26/17 06:53 09/26/17 06:53 09/26/17 06:53 09/26/17 06:53 09/26/17 06:53 General appearance: Present: A&O X 3, no acute distress, answers questions appropriately Exam: GEN: NAD CVS: RRR. S1, S2, No m/r/g RESP: Diminished with expiratory wheezes throughout. ABD: Soft, NT, ND, +BS EXT: No edema. 2+ DP. No rashes NEURO: Nonfocal Internal Medicine: Result - Labs CBC & Chem 7: 09/26/17 03:03 09/26/17 03:03 Labs: Short CBC 09/26/17 Range/Units 03:03 WBC 11.7 H (4.3-11.1) K/mcL Hgb 15.4 (12.9-16.9) g/dL Hct 48.4 (37.5-50.1) % Plt Count 208 (140-400) K/mcL Neutrophils # 10.2 H (1.6-8.9) K/mcL BMP 09/26/17 03:03 Sodium 138 Potassium 4.4 Chloride 104 Carbon Dioxide 26 BUN 28 H Creatinine 1.29 Glucose 111 H Calcium 9.6 Cardiac Enzymes 09/25/17 Range/Units 12:59 Troponin I 0.04 H* (< 0.04) ng/mL - Impressions Impressions Echocardiogram 09/25/17 05:57 Impressions: Technically sub-optimal due to poor echocardiographic windows. Parasternal views could not be obtained. LVEF 50-55%. Normal LV chamber size and function. Mild concentric left ventricular hypertrophy. Mild left ventricular diastolic dysfunction. Normal right ventricular structure and function. Unable to estimate RVSP due to lack of TR jet. No obvious significant valvular dysfunction. Findings: Study Quality * Technically sub-optimal due to poor echocardiographic windows. Parasternal views could not be obtained. ECG Findings * Normal sinus rhythm/sinus tachycardia. Left Ventricle * LVEF 50-55%. * Normal LV chamber size and function. * Mild concentric left ventricular hypertrophy. * Mild left ventricular diastolic dysfunction. Right Ventricle * Normal right ventricular structure and function. Left Atrium * Normal left atrial size. Right Atrium * Normal right atrial size. Interatrial Septum * Interatrial septum not well evaluated. Aortic Valve * Aortic valve not well visualized. * No aortic regurgitation. * No aortic stenosis. Mitral Valve * Normal mitral valve structure and function. * No mitral regurgitation. * No mitral stenosis. Tricuspid Valve * Normal tricuspid valve structure and function. * No tricuspid regurgitation. * Unable to estimate RVSP due to lack of TR jet. Pulmonic Valve * Pulmonic valve is not well visualized. Aorta * Normally sized aortic root. Pericardium * There is a trivial pericardial effusion present. IVC * Normal IVC dimensions and inspiratory collapse. Pulmonary Artery * Pulmonary artery not well visualized. ADDENDUM: 09/26/17 0829 Impressions: Technically sub-optimal due to poor echocardiographic windows. Parasternal views could not be obtained. LVEF 50-55%. Normal LV chamber size and function. Mild concentric left ventricular hypertrophy. Mild left ventricular diastolic dysfunction. Normal right ventricular structure and function. Unable to estimate RVSP due to lack of TR jet. No obvious significant valvular dysfunction. Findings: Study Quality * Technically sub-optimal due to poor echocardiographic windows. Parasternal views could not be obtained. ECG Findings * Normal sinus rhythm/sinus tachycardia. Left Ventricle * LVEF 50-55%. * Normal LV chamber size and function. * Mild concentric left ventricular hypertrophy. * Mild left ventricular diastolic dysfunction. Right Ventricle * Normal right ventricular structure and function. Left Atrium * Normal left atrial size. Right Atrium * Normal right atrial size. Interatrial Septum * Interatrial septum not well evaluated. Aortic Valve * Aortic valve not well visualized. * No aortic regurgitation. * No aortic stenosis. Mitral Valve * Normal mitral valve structure and function. * No mitral regurgitation. * No mitral stenosis. Tricuspid Valve * Normal tricuspid valve structure and function. * No tricuspid regurgitation. * Unable to estimate RVSP due to lack of TR jet. Pulmonic Valve * Pulmonic valve is not well visualized. Aorta * Normally sized aortic root. Pericardium * There is a trivial pericardial effusion present. IVC * Normal IVC dimensions and inspiratory collapse. Pulmonary Artery * Pulmonary artery not well visualized. Consult Discharge Plan - Plan Referrals: [facility] [Primary Care Provider] -
[2017-09-26] MEDS: hydroCHLOROthiazide 25 MG TABLET PO SCH (09:42)
[2017-09-26] MEDS: predniSONE 20 MG TABLET PO SCH (09:43)
[2017-09-26] MEDS: Levofloxacin 750 MG/150 ML 750 MG/150 ML BAG IVPB SCH (13:19)
[2017-09-26] MEDS: 0.9 % Sodium Chloride 1,000 ML IVC SCH (13:43)
[2017-09-26] MEDS: GuaiFENesin Liq 200 MG/10 ML UDC PO SCH ×3 (13:43→23:55)
[2017-09-26] MEDS ORDERED: Levofloxacin 750 MG/150 ML 750 MG/150 ML BAG IVPB SCH (14:00)
[2017-09-26] MEDS: methylPREDNISolone 125 MG/2 ML VIAL IVP SCH ×2 (18:36→23:56)
[2017-09-27] MEDS: Ipratropium/Albuterol Neb 3 ML IH SCH ×2 (03:54→10:49)
[2017-09-27 04:20] LABS: Basophils % 0.1 %; Hematocrit 44.2 % (37.5-50.1); Hemoglobin 14.1 g/dL (12.9-16.9); Immature Granulocytes % 0.2 % (0-4); Lymphocytes # 0.6 K/mcL (0.6-4.6); Lymphocytes % 6.7 %; Mean Corpuscular HGB Conc 31.9 g/dL (31.6-35.5); Mean Corpuscular Volume 87.9 fL (83.0-100.0); Mean Platelet Volume 11.3 fL (9.4-12.4); Monocytes % 0.5 %; Neutrophils # 7.8 K/mcL (1.6-8.9); Platelet Count 173 K/mcL (140-400); Red Blood Count 5.03 M/mcL (4.19-5.50); Red Cell Distribution Width 14.2 % (11.5-14.5); Segmented Neutrophils % 92.5 %
[2017-09-27 04:34] LABS: BUN/Creatinine Ratio 26 (6-26); Blood Urea Nitrogen 31 mg/dL (6-20); Carbon Dioxide 25 mEq/L (23-29); Chloride 104 mEq/L (98-107); Glucose 218 mg/dL (70-105); Osmolality,Calculated 295 (280-300); Potassium 4.2 mEq/L (3.5-5.1); Sodium 136 mEq/L (136-145); eGFR For African Americans > 60 (> 60); eGFR For Non-African Americans > 60 (> 60)
[2017-09-27 05:00] LABS: Platelet Estimate Normal (Normal)
[2017-09-27] MEDS: 0.9 % Sodium Chloride 1,000 ML IVC SCH ×2 (05:45→05:49)
[2017-09-27] MEDS: *HR* Heparin 5,000 UNIT/ML VIAL SQ SCH (05:49)
[2017-09-27] MEDS: GuaiFENesin Liq 200 MG/10 ML UDC PO SCH ×2 (05:49→10:43)
--- NOTE | 2017-09-27 09:35 | Discharge Summary ---
Date of Encounter: 09/27/17 Time of Encounter: 09:35 - Discharge Diagnosis (1) Acute exacerbation of chronic obstructive airways disease Priority: Primary Status: Acute (2) BPH (benign prostatic hyperplasia) Priority: Secondary Status: Acute Qualifiers: Lower urinary tract symptom presence: unspecified whether lower urinary tract symptoms present Qualified Code(s): N40.0 - Benign prostatic hyperplasia without lower urinary tract symptoms (3) Elevated troponin Priority: Primary Status: Acute - Discharge Medications Prescriptions: Levofloxacin [Levaquin] 500 mg PO DAILY #3 tablet predniSONE [PredniSONE] See Taper PO TAPER #30 tablet Home Medications: Albuterol Sulfate [Albuterol Inhaler] 2 puff IH Q6HR PRN 09/25/17 [History] Budesonide/Formoterol 160/4.5 [Symbicort 160/4.5] 1 puff IH BIDR 09/25/17 [ History] Tamsulosin HCl [Flomax] 0.4 mg PO DAILY 09/25/17 [History] hydroCHLOROthiazide [Hydrochlorothiazide] 25 mg PO DAILY 09/25/17 [History] Levofloxacin [Levaquin] 500 mg PO DAILY #3 tablet 09/27/17 [Rx] predniSONE [PredniSONE] See Taper PO TAPER #30 tablet 09/27/17 [Rx] Allergies/Adverse Reactions: 3 Allergy/AdvReac Type Severity Reaction Status Date / Time No Known Allergies Allergy Verified 08/09/15 23:34 Procedures/tests Complete & Pending: Procedures Performed prior 72 hours Category Date Time Status EV echocardiogram Routine Y 09/25/17 05:57 Completed Date of admission: 09/25/17 05:52 [facility]: [facility] - Patient Status Disposition: Home, Self-Care Condition: Fair Overall status at discharge: patient is progressing back to baseline - Discharge Instructions Follow Up With: [facility],PCP [Primary Care Provider] - - Diet and Activity Activity: increase activity as tolerated, wear oxygen at all times Diet: regular diet Hospital course: Mr. Brink is a 51 year old male with Hx of COPD on home oxygen presented to ER for SOB for 2 days. In ER, CXR unremarkable (shows emphysema). However, his first troponin is 0.05. The patient was admitted for COPD exacerbation. He was put on IV steroids. Was put on nebulizers. His cardiac enzymes were trended and remained 0.05/0.11/2003. Had no chest pain whatsoever. EKG with no ST or T-wave changes. The patient did well over the next couple days on IV steroids and nebulizers. He was able to be weaned down to his chronic home 2-3 L via nasal cannula. He was discharged on prednisone taper as Levaquin. - Time Spent with Patient Total time spent providing and/or coordinating discharge services: Greater than 30 minutes - Constitutional Vitals: Temp Pulse Resp BP Pulse Ox 97.9 F 85 17 128/78 93 09/27/17 07:08 09/27/17 07:08 09/27/17 07:08 09/27/17 07:08 09/27/17 07:08 General appearance: Present: A&O X 3, no acute distress, answers questions appropriately Exam: GEN: NAD CVS: RRR. S1, S2, No m/r/g RESP: Diminished with no expiratory wheezes throughout. ABD: Soft, NT, ND, +BS EXT: No edema. 2+ DP. No rashes NEURO: Nonfocal
[2017-09-27] MEDS: hydroCHLOROthiazide 25 MG TABLET PO SCH (10:43)
[2017-09-27] MEDS: methylPREDNISolone 125 MG/2 ML VIAL IVP SCH (10:43)
[2017-09-27 11:04] VITALS: BP 157/103
--- NOTE | 2017-09-27 11:11 | Electrocardiograph Report ---
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
[2017-09-27] MEDS ORDERED: FLUARIX QUAD 2017-18 36MOS UP/PF 0.5 ML SYRINGE IM ONE (11:16)
== END 2017-09-27 01:00 | disposition home or self-care (01) | DRG 140 ==
LOC: EMEROO 00:40 → 2SOUTHHOLD 00:40 → 2ANU 17:41
PROVIDERS: ADMIT Internal Medicine; ATTEND Internal Medicine

== ENCOUNTER 2017-11-02 21:09 | Inpatient (IN) ==
[2017-11-02] MEDS ORDERED: 0.9 % Sodium Chloride 500 ML IVC ONE (21:14)
[2017-11-02] MEDS ORDERED: methylPREDNISolone 125 MG/2 ML VIAL IVP ONE (21:14)
[2017-11-02] MEDS ORDERED: Ipratropium/Albuterol Neb 3 ML IH ONE (21:14)
--- NOTE | 2017-11-02 21:35 | Emergency Department Note ---
Disposition Clinical Impression: Elevated troponin Dyspnea Qualifiers: Dyspnea type: unspecified Qualified Code(s): R06.00 - Dyspnea, unspecified Disposition: Still a Patient [facility] Care Provider[facility] - Forms: ED Satisfaction Letter Time of Disposition: 22:51 SOB HPI - General Chief Complaint: ED Shortness of Breath/Dyspnea Stated Complaint: uRddy Time Seen by Provider: 11/02/17 21:14 Source: patient, EMS Limitations: no limitations, other (dyspnea) Nursing Notes Reviewed: Yes Vital Signs Reviewed: Yes - History of Present Illness 51 year old male prsentes to the ED with complaints of dypsnea via EMS. He staets that he was most recently admitted to the hospital one month ago for COPD excerbation adn pnueonia and states that he ahs been coughing up green/ yelow sputum with diaphoresis and chills at home. Yancy states that he chronically wears 2LNC at home and that when eMS arrived he was not wearing his oxygen and was actively tripoding and was at 70%, and they have weaned from to 6LNC from 15 and he is at 94%. Yancy is actively retracting at bedside and appears to be dyspnic, and mildly tachycardiac. - Related Data Home Medications Medication Instructions Recorded Confirmed Albuterol Sulfate [Albuterol 2 puff IH Q6HR PRN 09/25/17 09/25/17 Inhaler] Budesonide/Formoterol 160/4.5 1 puff IH BIDR 09/25/17 09/25/17 [Symbicort 160/4.5] Tamsulosin HCl [Flomax] 0.4 mg PO DAILY 09/25/17 09/25/17 hydroCHLOROthiazide 25 mg PO DAILY 09/25/17 09/25/17 [Hydrochlorothiazide] Previous Rx's Medication Instructions Recorded Levofloxacin [Levaquin] 500 mg PO DAILY #3 tablet 09/27/17 predniSONE [PredniSONE] See Taper PO TAPER #30 tablet 09/27/17 Allergies Allergy/AdvReac Type Severity Reaction Status Date / Time No Known Allergies Allergy Verified 08/09/15 23:34 Constitutional: Denies: fever, chills, weakness, weight change Eyes: Denies: eye pain, eye discharge, vision change ENT ED: Denies: ear pain, throat pain, dental pain, hearing loss, epistaxis, congestion, dysphagia Cardiovascular: Denies: chest pain, palpitations, dyspnea on exertion, edema, syncope Respiratory: Reports: dyspnea, wheezes. Denies: cough, hemoptysis, stridor Gastrointestinal: Denies: abdominal pain, nausea, vomiting, diarrhea, constipation, hematemesis, melena, hematochezia Genitourinary: Denies: urgency, dysuria, frequency, hematuria Musculoskeletal: Denies: back pain, neck pain, arthralgia, myalgia Integumentary: Denies: rash, abrasion, lesions Neurological: Denies: headache, weakness, numbness, paresthesias, confusion, abnormal gait, vertigo Psychiatric: Denies: anxiety, depression, suicidal thoughts, homicidal thoughts , auditory hallucinations, visual hallucinations Endocrine: Denies: fatigue Hematological/Lymphatic: Denies: easy bleeding, easy bruising Allergic/Immunologic: Denies: facial swelling, urticaria Past Medical History - Past Medical History Medical history: Reports: COPD, GERD, hypertension, other Surgical history: Reports: non-contributory, other Psychiatric history: Reports: no psych history - Social History Smoking Status: Heavy tobacco smoker Smokeless Tobacco Status: No Alcohol use: Reports: none Drug use: Reports: none, other Physical Exam - General Limitations: no limitations General appearance: in distress - Head Head exam: atraumatic, normocephalic, normal inspection - Eye Eye exam: Present: normal appearance, PERRL, EOMI - Expanded Eye Exam Pupils: Bilateral: reactive - ENT ENT exam: normal exam, normal oropharynx, mucous membranes moist - Expanded ENT Exam External ear exam: Present: normal external inspection Mouth exam: Present: normal external inspection Teeth exam: Present: normal inspection Throat exam: Present: normal inspection - Neck Neck exam: Present: normal inspection, full ROM, trachea midline - Chest Chest inspection: Present: normal inspection, symmetric chest wall rise - Respiratory Respiratory exam: Present: respiratory distress, wheezes, accessory muscle use, prolonged expiratory phase - Cardiovascular Cardiovascular exam: Present: normal rhythm, tachycardia, normal heart sounds - Abdominal Exam Abdominal exam: Present: soft, Non-Tender. Absent: tenderness, distention, guarding, rebound, rigidity - Extremities Exam Extremities exam: Present: normal inspection, full ROM. Absent: tenderness, pedal edema - Expanded Upper Extremity Exam Shoulder exam: Present: normal inspection, full ROM Arm exam: Present: normal inspection, full ROM Elbow exam: Present: normal inspection, full ROM Forearm/Wrist exam: Present: normal inspection, full ROM Hand exam: Present: normal inspection, full ROM Vascular exam: Normal: capillary refill, radial pulse - Expanded Lower Extremity Exam Hip/Pelvis exam: Present: normal inspection, full ROM Upper leg exam: Present: normal inspection, full ROM Knee exam: Present: normal inspection, full ROM Lower leg exam: Present: normal inspection, full ROM Ankle exam: Present: normal inspection, full ROM Foot/toe exam: Present: normal inspection, full ROM Neurovascular/Tendon exam: Absent: motor deficit, sensory deficit, tendon deficit - Back Exam Back exam: Present: normal inspection, full ROM. Absent: tenderness - Neurological Exam Neurological exam: Present: alert, oriented X3 - Expanded Neurological Exam Patient oriented to: Present: person, place, time Coma Scale Eye Opening: Spontaneous Coma Scale Motor Response: Obeys Commands Coma Scale Verbal Response: Oriented Coma Scale Total: 15 - Psychiatric Psychiatric exam: Present: normal affect, normal mood - Skin Skin exam: Present: warm, dry, intact, normal color Course Course Narrative: we will place julio ton bipap and give breathing treatments in addiition to obtain ABG and rule out PE vs pneumonia on CTA chest and admit to medicine - Reevaluation(s) Reevaluation #1: yancy states that he is feeling better. WE will continue evlatoin and CTA is pending. WE are waiting to rule out PE vs dissection vs pnuemonia. his troponin is 0.16 and will need cardiology consultaion after CTA chest has resulted to determine need for heparin therapy as this may be an NSTEMI, although he is not experincing chest pain. Signed patient out to Dr. Arian Mckeon for admission. Time: 22:50 Vital Signs Temperature 98.2 F 11/02/17 21:17 Pulse Rate 134 11/02/17 21:17 Respiratory Rate 30 11/02/17 21:17 Blood Pressure 171/141 11/02/17 21:17 O2 Sat by Pulse Oximetry 92 11/02/17 21:17 Temperature 98.2 F 11/02/17 21:17 Pulse Rate 134 11/02/17 21:17 Respiratory Rate 31 11/02/17 21:30 Blood Pressure 171/141 11/02/17 21:17 O2 Sat by Pulse Oximetry 96 03/26/18 21:30 Oxygen Delivery Oxygen Delivery Nasal Cannula Shortness of Breath/Dyspnea - Medical Records Medical records reviewed: Yes I reviewed the patient's medical records. - Lab Data Lab results reviewed: Yes I reviewed the patient's lab results. Result diagrams: 11/02/17 21:59 11/02/17 21:59 Lab Results 11/02/17 11/02/17 11/02/17 Range/Units 21:59 21:59 21:59 WBC (4.3-11.1) K/mcL RBC (4.19-5.50) M/mcL Hgb (12.9-16.9) g/dL Hct (37.5-50.1) % MCV (83.0-100.0) fL MCH (28.0-33.3) pg MCHC (31.6-35.5) g/dL RDW (11.5-14.5) % Plt Count (140-400) K/mcL MPV (9.4-12.4) fL Immature Gran % (0-4) % Seg Neutrophils % % Lymphocytes % % Monocytes % % Eosinophils % % Basophils % % Neutrophils # (1.6-8.9) K/mcL Lymphocytes # (0.6-4.6) K/mcL Monocytes # (0.0-1.3) K/mcL Eosinophils # (0.0-0.6) K/mcL Basophils # (0.0-0.2) K/mcL PT 10.1 (9.4-12.1) Seconds INR 0.9 APTT 26.0 (26.0-36.0) Seconds Sodium (136-145) mEq/L Potassium (3.5-5.1) mEq/L Chloride (98-107) mEq/L Carbon Dioxide (23-29) mEq/L BUN (6-20) mg/dL Creatinine (0.70-1.30) mg/dL Est GFR ( Amer) (> 60) Est GFR (Non-Af Amer) (> 60) BUN/Creatinine Ratio (6-26) Glucose (70-105) mg/dL Calculated Osmolality (280-300) Calcium (8.6-10.3) mg/dL Total Bilirubin 0.4 (0.3-1.0) mg/dL Direct Bilirubin 0.1 (0.0-0.2) mg/dL Indirect Bilirubin 0.3 (0.0-1.2) mg/dL AST 16 (13-39) Units/L ALT 14 (7-52) Units/L Alkaline Phosphatase 89 (34-104) Units/L B-Natriuretic Peptide 1396 H (Less than 100) pg/mL Serum Total Protein 6.6 (6.4-8.9) g/dL Albumin 4.0 (3.5-5.7) g/dL Globulin 2.6 (2.4-3.5) g/dL Albumin/Globulin Ratio 1.5 (1.1-2.2) Lipase 11 (11-82) Units/L 11/02/17 11/02/17 Range/Units 21:59 21:59 WBC 17.9 H (4.3-11.1) K/mcL RBC 5.35 (4.19-5.50) M/mcL Hgb 15.0 (12.9-16.9) g/dL Hct 48.6 (37.5-50.1) % MCV 90.8 (83.0-100.0) fL MCH 28.0 (28.0-33.3) pg MCHC 30.9 L (31.6-35.5) g/dL RDW 15.5 H (11.5-14.5) % Plt Count 228 (140-400) K/mcL MPV 11.1 (9.4-12.4) fL Immature Gran % 0.8 (0-4) % Seg Neutrophils % 75.1 % Lymphocytes % 15.3 % Monocytes % 7.7 % Eosinophils % 0.7 % Basophils % 0.4 % Neutrophils # 13.4 H (1.6-8.9) K/mcL Lymphocytes # 2.7 (0.6-4.6) K/mcL Monocytes # 1.4 H (0.0-1.3) K/mcL Eosinophils # 0.1 (0.0-0.6) K/mcL Basophils # 0.1 (0.0-0.2) K/mcL PT (9.4-12.1) Seconds INR APTT (26.0-36.0) Seconds Sodium 142 (136-145) mEq/L Potassium 3.8 (3.5-5.1) mEq/L Chloride 107 (98-107) mEq/L Carbon Dioxide 27 (23-29) mEq/L BUN 21 H (6-20) mg/dL Creatinine 1.18 (0.70-1.30) mg/dL Est GFR ( Amer) > 60 (> 60) Est GFR (Non-Af Amer) > 60 (> 60) BUN/Creatinine Ratio 18 (6-26) Glucose 106 H (70-105) mg/dL Calculated Osmolality 297 (280-300) Calcium 9.1 (8.6-10.3) mg/dL Total Bilirubin (0.3-1.0) mg/dL Direct Bilirubin (0.0-0.2) mg/dL Indirect Bilirubin (0.0-1.2) mg/dL AST (13-39) Units/L ALT (7-52) Units/L Alkaline Phosphatase (34-104) Units/L B-Natriuretic Peptide (Less than 100) pg/mL Serum Total Protein (6.4-8.9) g/dL Albumin (3.5-5.7) g/dL Globulin (2.4-3.5) g/dL Albumin/Globulin Ratio (1.1-2.2) Lipase (11-82) Units/L - Radiology Data Radiology results reviewed: Yes I reviewed the patient's radiology results. - EKG Data EKG attestation: Yes I reviewed and interpreted this EKG. EKG results narrative: sinus tachcardia with rate of 125. there is ST elevation in V3, but no other concurrent lead with elevation. in addition to T wave inversion in V4-5 which are new from 09/25/17. I bleiev this is likely demand ischemia and not an NSTEMI or STEMI. I will preemptively treat with ASA
[2017-11-02] MEDS ORDERED: Piperacillin/Tazobactam 3.375 GM in 0.9 % Sodium Chloride Mini Bag 100 ML IVPB ONE (21:37)
[2017-11-02] MEDS ORDERED: Aspirin 325 MG TABLET PO ONE (22:25)
[2017-11-02 22:32] LABS: Basophils # 0.1 K/mcL (0.0-0.2); Basophils % 0.4 %; Eosinophils # 0.1 K/mcL (0.0-0.6); Eosinophils % 0.7 %; Hematocrit 48.6 % (37.5-50.1); Immature Granulocytes % 0.8 % (0-4); Lymphocytes # 2.7 K/mcL (0.6-4.6); Lymphocytes % 15.3 %; Mean Corpuscular HGB Conc 30.9 g/dL (31.6-35.5); Mean Corpuscular Volume 90.8 fL (83.0-100.0); Mean Platelet Volume 11.1 fL (9.4-12.4); Monocytes # 1.4 K/mcL (0.0-1.3); Monocytes % 7.7 %; Neutrophils # 13.4 K/mcL (1.6-8.9); Platelet Count 228 K/mcL (140-400); Red Blood Count 5.35 M/mcL (4.19-5.50); Red Cell Distribution Width 15.5 % (11.5-14.5); Segmented Neutrophils % 75.1 %
[2017-11-02 22:34] LABS: Albumin/Globulin Ratio 1.5 (1.1-2.2); Bilirubin,Direct 0.1 mg/dL (0.0-0.2); Bilirubin,Indirect 0.3 mg/dL (0.0-1.2); Bilirubin,Total 0.4 mg/dL (0.3-1.0); Globulin 2.6 g/dL (2.4-3.5); Total Protein 6.6 g/dL (6.4-8.9)
[2017-11-02 22:35] LABS: BUN/Creatinine Ratio 18 (6-26); Blood Urea Nitrogen 21 mg/dL (6-20); Calcium 9.1 mg/dL (8.6-10.3); Carbon Dioxide 27 mEq/L (23-29); Chloride 107 mEq/L (98-107); Glucose 106 mg/dL (70-105); Osmolality,Calculated 297 (280-300); Potassium 3.8 mEq/L (3.5-5.1); Sodium 142 mEq/L (136-145); eGFR For African Americans > 60 (> 60); eGFR For Non-African Americans > 60 (> 60)
[2017-11-02 22:38] LABS: INR 0.9; Prothrombin Time 10.1 Seconds (9.4-12.1)
[2017-11-02 22:50] LABS: Troponin I 0.16 ng/mL (< 0.04)
[2017-11-02] MEDS ORDERED: Levofloxacin 750 MG/150 ML 750 MG/150 ML BAG IVPB ONE (22:51)
[2017-11-02] MEDS ORDERED: Furosemide 40 MG/4 ML VIAL IVP ONE (22:51)
[2017-11-02 23:14] LABS: ABG Base Excess 2 mEq/L (-2 to 3); ABG HCO3 30 mEq/L (21-27); ABG Oxygen Saturation 96 % (95-98); ABG PCO2 59 mmHg (35-45); ABG PH 7.31 pH Units (7.32-7.45); ABG PO2 88 mmHg (85-104); ABG TCO2 32 mEq/L (20-26)
[2017-11-02] MEDS ORDERED: Albuterol 2.5 MG/3 ML NEBULIZER IH ONE (23:19)
--- NOTE | 2017-11-03 00:48 | Emergency Department Note ---
Disposition Clinical Impression: Elevated troponin, COPD exacerbation Dyspnea Qualifiers: Dyspnea type: unspecified Qualified Code(s): R06.00 - Dyspnea, unspecified Disposition: Admitted As Inpatient Condition: Good [facility]errals: [facility] [Primary Care Provider] - Forms: ED Satisfaction Letter Time of Disposition: 00:30 General Adult HPI - General Chief complaint: ED Shortness of Breath/Dyspnea Stated complaint: Ruddy Time Seen by Provider: 11/02/17 21:14 Source: patient, EMS Limitations: no limitations Nursing Notes Reviewed: Yes Vital Signs Reviewed: Yes - History of Present Illness Pain Scale: 0 - Related Data Home Medications Medication Instructions Recorded Confirmed Albuterol Sulfate [Albuterol 2 puff IH Q6HR PRN 09/25/17 09/25/17 Inhaler] Budesonide/Formoterol 160/4.5 1 puff IH BIDR 09/25/17 09/25/17 [Symbicort 160/4.5] Tamsulosin HCl [Flomax] 0.4 mg PO DAILY 09/25/17 09/25/17 hydroCHLOROthiazide 25 mg PO DAILY 09/25/17 09/25/17 [Hydrochlorothiazide] Previous Rx's Medication Instructions Recorded Levofloxacin [Levaquin] 500 mg PO DAILY #3 tablet 09/27/17 predniSONE [PredniSONE] See Taper PO TAPER #30 tablet 09/27/17 Allergies Allergy/AdvReac Type Severity Reaction Status Date / Time No Known Allergies Allergy Verified 08/09/15 23:34 Constitutional: Denies: fever, chills, weakness, weight change Eyes: Denies: eye pain, eye discharge, vision change ENT ED: Denies: ear pain, throat pain, dental pain, hearing loss, epistaxis, congestion, dysphagia Cardiovascular: Denies: chest pain, palpitations, dyspnea on exertion, edema, syncope Respiratory: Reports: dyspnea, wheezes. Denies: cough, hemoptysis, stridor Gastrointestinal: Denies: abdominal pain, nausea, vomiting, diarrhea, constipation, hematemesis, melena, hematochezia Genitourinary: Denies: urgency, dysuria, frequency, hematuria Musculoskeletal: Denies: back pain, neck pain, arthralgia, myalgia Integumentary: Denies: rash, abrasion, lesions Neurological: Denies: headache, weakness, numbness, paresthesias, confusion, abnormal gait, vertigo Psychiatric: Denies: anxiety, depression, suicidal thoughts, homicidal thoughts , auditory hallucinations, visual hallucinations Endocrine: Denies: fatigue Hematological/Lymphatic: Denies: easy bleeding, easy bruising Allergic/Immunologic: Denies: facial swelling, urticaria Past Medical History - Past Medical History Medical history: Reports: COPD, GERD, hypertension, other Surgical history: Reports: non-contributory, other Psychiatric history: Reports: no psych history - Social History Smoking Status: Heavy tobacco smoker Smokeless Tobacco Status: No Alcohol use: Reports: none Drug use: Reports: none, other Physical Exam - General Limitations: no limitations General appearance: in distress Course Vital Signs Temperature 98.2 F 11/02/17 21:17 Pulse Rate 134 11/02/17 21:17 Respiratory Rate 30 11/02/17 21:17 Blood Pressure 171/141 11/02/17 21:17 O2 Sat by Pulse Oximetry 92 11/02/17 21:17 Temperature 98.2 F 11/02/17 21:17 Pulse Rate 120 11/03/17 00:41 Respiratory Rate 22 11/03/17 00:41 Blood Pressure 158/123 11/02/17 23:40 O2 Sat by Pulse Oximetry 97 11/03/17 00:41 Oxygen Delivery Oxygen Delivery Bipap Medical Decision Making - MDM Narrative Medical decision making narrative: 51-year-old male received in sign out pending the CTA of the chest for further evaluation of respiratory distress. Patient improved after Solu-Medrol and multiple breathing treatments in the emergency department as well as BiPAP. He is now satting 93-94% on 5 L of oxygen. Patient feels significantly improved. He had wheezing on bilateral posterior lung phelps on examination. CTA of his chest shows a multifocal pneumonia. Patient given antibiotics in the emergency department. He will be admitted to the hospitalist for further care and evaluation. EKG did have isolated ST elevation in lead V3 without consecutive elevation or other ST depressions. Patient did as well have a T-wave inversions in leads V3 through V6. Troponin was elevated at 0.16 however this is likely due to ischemic command. Patient will be admitted to the hospitalist for further care and evaluation. - Medical Records Medical records reviewed: Yes I reviewed the patient's medical records. - Lab Data Result diagrams: 11/02/17 21:59 11/02/17 21:59 Lab Results 0311/02/17 11/02/17 Range/Units 21:59 21:59 21:59 WBC (4.3-11.1) K/mcL RBC (4.19-5.50) M/mcL Hgb (12.9-16.9) g/dL Hct (37.5-50.1) % MCV (83.0-100.0) fL MCH (28.0-33.3) pg MCHC (31.6-35.5) g/dL RDW (11.5-14.5) % Plt Count (140-400) K/mcL MPV (9.4-12.4) fL Immature Gran % (0-4) % Seg Neutrophils % % Lymphocytes % % Monocytes % % Eosinophils % % Basophils % % Neutrophils # (1.6-8.9) K/mcL Lymphocytes # (0.6-4.6) K/mcL Monocytes # (0.0-1.3) K/mcL Eosinophils # (0.0-0.6) K/mcL Basophils # (0.0-0.2) K/mcL PT 10.1 (9.4-12.1) Seconds INR 0.9 APTT 26.0 (26.0-36.0) Seconds Sample Site ABG pH (7.32-7.45) pH Units ABG pCO2 (35-45) mmHg ABG pO2 (85-104) mmHg ABG HCO3 (21-27) mEq/L ABG Total CO2 (20-26) mEq/L ABG O2 Saturation (95-98) % ABG Base Excess (-2 to 3) mEq/L Jesus Test O2 Delivery Device Inspired O2 (1-15=lpm [id number]=%) Sodium (136-145) mEq/L Potassium (3.5-5.1) mEq/L Chloride (98-107) mEq/L Carbon Dioxide (23-29) mEq/L BUN (6-20) mg/dL Creatinine (0.70-1.30) mg/dL Est GFR ( Amer) (> 60) Est GFR (Non-Af Amer) (> 60) BUN/Creatinine Ratio (6-26) Glucose (70-105) mg/dL Calculated Osmolality (280-300) Calcium (8.6-10.3) mg/dL Total Bilirubin 0.4 (0.3-1.0) mg/dL Direct Bilirubin 0.1 (0.0-0.2) mg/dL Indirect Bilirubin 0.3 (0.0-1.2) mg/dL AST 16 (13-39) Units/L ALT 14 (7-52) Units/L Alkaline Phosphatase 89 (34-104) Units/L Troponin I (< 0.04) ng/mL B-Natriuretic Peptide 1396 H (Less than 100) pg/mL Serum Total Protein 6.6 (6.4-8.9) g/dL Albumin 4.0 (3.5-5.7) g/dL Globulin 2.6 (2.4-3.5) g/dL Albumin/Globulin Ratio 1.5 (1.1-2.2) Lipase 11 (11-82) Units/L 11/02/17 11/02/17 11/02/17 Range/Units 21:59 21:59 23:10 WBC 17.9 H (4.3-11.1) K/mcL RBC 5.35 (4.19-5.50) M/mcL Hgb 15.0 (12.9-16.9) g/dL Hct 48.6 (37.5-50.1) % MCV 90.8 (83.0-100.0) fL MCH 28.0 (28.0-33.3) pg MCHC 30.9 L (31.6-35.5) g/dL RDW 15.5 H (11.5-14.5) % Plt Count 228 (140-400) K/mcL MPV 11.1 (9.4-12.4) fL Immature Gran % 0.8 (0-4) % Seg Neutrophils % 75.1 % Lymphocytes % 15.3 % Monocytes % 7.7 % Eosinophils % 0.7 % Basophils % 0.4 % Neutrophils # 13.4 H (1.6-8.9) K/mcL Lymphocytes # 2.7 (0.6-4.6) K/mcL Monocytes # 1.4 H (0.0-1.3) K/mcL Eosinophils # 0.1 (0.0-0.6) K/mcL Basophils # 0.1 (0.0-0.2) K/mcL PT (9.4-12.1) Seconds INR APTT (26.0-36.0) Seconds Sample Site R Radial ABG pH 7.31 L (7.32-7.45) pH Units ABG pCO2 59 H (35-45) mmHg ABG pO2 88 (85-104) mmHg ABG HCO3 30 H (21-27) mEq/L ABG Total CO2 32 H (20-26) mEq/L ABG O2 Saturation 96 (95-98) % ABG Base Excess 2 (-2 to 3) mEq/L Jesus Test Positive O2 Delivery Device Bagging Inspired O2 40.0 (1-15=lpm [id number]=%) Sodium 142 (136-145) mEq/L Potassium 3.8 (3.5-5.1) mEq/L Chloride 107 (98-107) mEq/L Carbon Dioxide 27 (23-29) mEq/L BUN 21 H (6-20) mg/dL Creatinine 1.18 (0.70-1.30) mg/dL Est GFR ( Amer) > 60 (> 60) Est GFR (Non-Af Amer) > 60 (> 60) BUN/Creatinine Ratio 18 (6-26) Glucose 106 H (70-105) mg/dL Calculated Osmolality 297 (280-300) Calcium 9.1 (8.6-10.3) mg/dL Total Bilirubin (0.3-1.0) mg/dL Direct Bilirubin (0.0-0.2) mg/dL Indirect Bilirubin (0.0-1.2) mg/dL AST (13-39) Units/L ALT (7-52) Units/L Alkaline Phosphatase (34-104) Units/L Troponin I 0.16 H* (< 0.04) ng/mL B-Natriuretic Peptide (Less than 100) pg/mL Serum Total Protein (6.4-8.9) g/dL Albumin (3.5-5.7) g/dL Globulin (2.4-3.5) g/dL Albumin/Globulin Ratio (1.1-2.2) Lipase (11-82) Units/L - Radiology Data Radiology results reviewed: Yes I reviewed the patient's radiology results.
[2017-11-03] MEDS ORDERED: Naloxone 0.4 MG/ML INJ IVP PRN (01:06)
[2017-11-03] MEDS ORDERED: Ipratropium/Albuterol Neb 3 ML IH PRN ×2 (01:10→16:40)
[2017-11-03] MEDS ORDERED: *HR* Metoprolol 5 MG/5 ML VIAL IVP PRN (01:12)
[2017-11-03] MEDS ORDERED: 0.9 % Sodium Chloride 1,000 ML IVC SCH (01:15)
--- NOTE | 2017-11-03 01:17 | Internal Med History&Physical ---
Date of Encounter: 11/03/17 Time of Encounter: 01:13 Assessment and Plan (1) Respiratory failure with hypoxia Current visit: Yes Status: Acute 2/2 COPD flare with possible PNA and pulm congestion check TTE, treat possible PNA with empiric antibiotics trend BNP Qualifiers: Chronicity: acute on chronic Qualified Code(s): J96.21 - Acute and chronic respiratory failure with hypoxia (2) COPD exacerbation Current visit: Yes Status: Acute duonebs, IV steroids, IV antibiotics send RVP, serologies (3) Elevated troponin Current visit: Yes Status: Acute likely demand 2/2 to resp process prn IV metoprolol to control tachycardia to reduced demand trend trop recheck EKG in the morning (4) Lung nodule Current visit: Yes Status: Acute incidental on CT. F/u outpatient surveillance with PCP Internal Medicine - H&P: HPI Chief complaint: Shortness of breath History of present illness: Mr. Brink is a 51 year old male history of COPD, on 2 L nasal cannula baseline who presents with COPD exacerbation, possible pneumonia and some volume overload , NSTEMI. Patient describes to me 2 days history of worsening shortness of breath, dyspnea on exertion, with worsening to include progressive dyspnea at rest prior to ED presentation. He denies any fevers or chills, he continues to smoke one pack per day. He denies any chest pain but noted marked dyspnea. EKG personally reviewed with rate of 120, sinus tachycardia, LVH, T-wave inversion in the anterior leads CT/CT angio chest IMPRESSION: No findings to suggest pulmonary embolus Right greater than left basilar airspace disease with right larger than left small effusions. This is nonspecific and may represent atelectasis or pneumonia Enlarged right hilar lymph nodes. Reactive nodes are favored over neoplastic nodes. Follow-up recommended Stellate opacity in the left upper lobe is noted. This may represent additional focal airspace disease, however a neoplastic nodule cannot be excluded and follow-up is recommended XR/XR chest 1V portable IMPRESSION: Increased bibasilar reticular opacities may reflect mild interstitial edema or atypical infection. No focal consolidation. Past Med Surg Social Fam HX - Past Medical History Medical history: COPD, GERD, hypertension, other Psychiatric history: no psych history - Past Surgical History Surgical History: non-contributory, other - Social History Smoking Status: Heavy tobacco smoker Smokeless Tobacco Status: No Alcohol use: none Drug use: none, other - Family History Mother Living Status: Still Living Father Living Status: Hx Family Cardiac Disorders: Yes (CHF) Internal Medicine - H&P: Meds Albuterol Sulfate [Albuterol Inhaler] 2 puff IH Q6HR PRN 09/25/17 [History] Budesonide/Formoterol 160/4.5 [Symbicort 160/4.5] 1 puff IH BIDR 09/25/17 [ History] Tamsulosin HCl [Flomax] 0.4 mg PO DAILY 09/25/17 [History] hydroCHLOROthiazide [Hydrochlorothiazide] 25 mg PO DAILY 09/25/17 [History] Levofloxacin [Levaquin] 500 mg PO DAILY #3 tablet 09/27/17 [Rx] predniSONE [PredniSONE] See Taper PO TAPER #30 tablet 09/27/17 [Rx] 3 Allergy/AdvReac Type Severity Reaction Status Date / Time No Known Allergies Allergy Verified 08/09/15 23:34 All Systems PM: A 10-system review of systems was performed and is negative for pertinent findings except as documented above in the HPI. Review of systems: ROS 14 point review of systems reviewed as best as possible given presentation. Pertinent positive or negative as per HPI or otherwise reviewed as negative - Constitutional Vitals: Temp Pulse Resp BP Pulse Ox 98.2 F 120 22 158/123 97 11/02/17 21:17 11/03/17 00:41 11/03/17 00:41 11/02/17 23:40 11/03/17 00:41 Exam: General - AAO x 3 Psych - Appropriate affect/speech. No agitation Eyes - CLAUDIA. Eye lids intact. No scleral icterus Neuro - No gross peripheral or central neuro deficits on inspection Heart - Sinus. RRR. S1 and S2 present. No added HS/murmurs appreciated. No elevated JVD appreciated. Lung - Adequate air entry b/l on Bipap. No significant crackles or wheezes appreciated GI - Soft, non-tender. No hepatosplenomegaly/ascites. BS+ - No CVA/suprapubic tenderness or palpable bladder distension Internal Med - H&P Results - Labs CBC & Chem 7: 11/02/17 21:59 03/26/18 21:59 Labs: Short CBC 11/02/17 Range/Units 21:59 WBC 17.9 H (4.3-11.1) K/mcL Hgb 15.0 (12.9-16.9) g/dL Hct 48.6 (37.5-50.1) % Plt Count 228 (140-400) K/mcL Neutrophils # 13.4 H (1.6-8.9) K/mcL BMP 11/02/17 21:59 Sodium 142 Potassium 3.8 Chloride 107 Carbon Dioxide 27 BUN 21 H Creatinine 1.18 Glucose 106 H Calcium 9.1 Cardiac Enzymes 11/02/17 Range/Units 21:59 Troponin I 0.16 H* (< 0.04) ng/mL Liver Function 11/02/17 Range/Units 21:59 Total Bilirubin 0.4 (0.3-1.0) mg/dL Direct Bilirubin 0.1 (0.0-0.2) mg/dL AST 16 (13-39) Units/L ALT 14 (7-52) Units/L Alkaline Phosphatase 89 (34-104) Units/L Albumin 4.0 (3.5-5.7) g/dL - ABG Interpretation ABG results: 11/02/17 23:10 ABG pH 7.31 L ABG pCO2 59 H ABG pO2 88 ABG HCO3 30 H ABG Total CO2 32 H ABG O2 Saturation 96 ABG Base Excess 2 - Impressions ITS Impressions Chest X-Ray 11/02/17 21:14 IMPRESSION: Increased bibasilar reticular opacities may reflect mild interstitial edema or atypical infection. No focal consolidation. D/ / Javier Faulkner / Javier Faulkner Interpreting Provider: Javier Faulkner Chest CTA 11/03/17 21:14 IMPRESSION: No findings to suggest pulmonary embolus Right greater than left basilar airspace disease with right larger than left small effusions. This is nonspecific and may represent atelectasis or pneumonia Enlarged right hilar lymph nodes. Reactive nodes are favored over neoplastic nodes. Follow-up recommended Stellate opacity in the left upper lobe is noted. This may represent additional focal airspace disease, however a neoplastic nodule cannot be excluded and follow-up is recommended D/ / Christopher Swan / Christopher Swan Interpreting Provider: Christopher Swan
[2017-11-03] MEDS: Ipratropium/Albuterol Neb 3 ML IH SCH ×5 (03:27→22:07)
[2017-11-03] MEDS ORDERED: *HR* Enoxaparin 30 MG/0.3 ML SYRINGE SQ SCH (06:00)
[2017-11-03] MEDS: MethylPREDNISolone 40 MG/ML VIAL IVP SCH ×4 (06:35→23:18)
[2017-11-03 07:22] LABS: BUN/Creatinine Ratio 15 (6-26); Blood Urea Nitrogen 19 mg/dL (6-20); Calcium 8.5 mg/dL (8.6-10.3); Carbon Dioxide 32 mEq/L (23-29); Chloride 102 mEq/L (98-107); Glucose 119 mg/dL (70-105); Osmolality,Calculated 291 (280-300); Potassium 3.3 mEq/L (3.5-5.1); Sodium 139 mEq/L (136-145); eGFR For African Americans > 60 (> 60); eGFR For Non-African Americans 60 (> 60)
[2017-11-03 07:25] LABS: Basophils # 0.1 K/mcL (0.0-0.2); Basophils % 0.5 %; Eosinophils # 0.1 K/mcL (0.0-0.6); Eosinophils % 0.8 %; Hematocrit 45.3 % (37.5-50.1); Hemoglobin 14.3 g/dL (12.9-16.9); Immature Granulocytes % 0.6 % (0-4); Lymphocytes # 2.5 K/mcL (0.6-4.6); Lymphocytes % 16.1 %; Mean Corpuscular HGB Conc 31.6 g/dL (31.6-35.5); Mean Corpuscular Volume 88.8 fL (83.0-100.0); Mean Platelet Volume 11.4 fL (9.4-12.4); Monocytes # 1.8 K/mcL (0.0-1.3); Monocytes % 11.2 %; Neutrophils # 11.1 K/mcL (1.6-8.9); Platelet Count 219 K/mcL (140-400); Red Cell Distribution Width 15.3 % (11.5-14.5); Segmented Neutrophils % 70.8 %
[2017-11-03 07:50] LABS: Troponin I 0.18 ng/mL (< 0.04)
[2017-11-03] MEDS ORDERED: cefTRIAXone 2,000 MG in Water for inj. (sterile) 20 ML 20 ML IVPB SCH (09:00)
[2017-11-03] MEDS: Aspirin Enteric Coated 81 MG Tablet PO SCH (11:19)
--- NOTE | 2017-11-03 16:28 | Internal Med Progress Note ---
Date of Encounter: 11/03/17 Time of Encounter: 16:24 - Assessment and plan (1) Acute exacerbation of chronic obstructive airways disease Current Visit: No Status: Acute Assessment and plan: presented with SOB. CXR concerning for bibasilar edema or atypical pneumonia. Chest CTA with bilateral airspace disease concerning for pneumonia, enlarged hilar lymph node, negative for 0.8 embolism. Clinically appears to be pneumonia with productive cough and adventitious breath sounds. Cont IV levaquin , steroids. Respiratory PCR, urinary antigens pending (2) Acute systolic (congestive) heart failure Current Visit: Yes Status: Acute Assessment and plan: TTE with EF 30-35% (EF previously 50% 09/2017). Received one-time dose IV Lasix and ED. Does not appear overtly overloaded. Discussed with cardiology and will give another one-time dose IV Lasix. Start low-dose BB. Plan for diagnostic left heart catheterization with newly reduced EF. Add NORAH post LHC if renal function remains stable. Cardiology following (3) Elevated troponin Current Visit: Yes Status: Acute Assessment and plan: troponinpeaked at 0.16 and trended down. Denies chest pain. Discussed with cardiology and will start heparin drip, with newly reduced EF will need diagnostic LHC, NPO at midnight. Cardiology consulted (4) DVT prophylaxis Current Visit: No Status: Resolved Assessment and plan: heparin gtt - Subjective Interval history: Seen and examined at bedside. Patient is new to me, information obtained from chart review and patient report. Still complaints of shortness of breath but says he significantly improved from admission. No chest pain. Has productive cough at times. No fevers or chills. - Constitutional Vitals: Temp Pulse Resp BP Pulse Ox 98.5 F 92 16 136/99 96 11/03/17 11:45 11/03/17 11:45 11/03/17 16:00 11/03/17 11:45 11/03/17 16:00 General appearance: Present: mild distress, A&O X 3 - Head Head exam: Present: atraumatic, normocephalic - Eye Eye exam: Present: PERRL, conjuntiva pink, sclera anicteric Pupils: Present: PERRL - Neck Neck exam general surgery: Present: supple, trachea midline. Absent: lymphadenopathy - Respiratory Respiratory exam: Present: CTAB. Absent: accessory muscle use, rales, rhonchi, wheezes - Cardiovascular Cardiovascular exam: Present: RRR, +S1, +S2. Absent: diastolic murmur, gallop, rubs, systolic murmur - GI/Abdominal GI/Abdominal exam: Present: normal bowel sounds, soft, no peritoneal signs. Absent: distended, tenderness - Extremities Exam Extremities exam: Present: warm, radial pulses palpable and symmetrical. Absent : calf tenderness, cyanotic, pedal edema - Neurological Exam Neurological exam: Present: CN II-XII intact, oriented X3, no focal deficits. Absent: pronater drift, facial droop, speech deficit - Skin Skin exam: Present: dry, intact Internal Medicine: Result - Labs CBC & Chem 7: 11/03/17 06:52 11/03/17 06:52 Labs: Short CBC 11/03/17 Range/Units 06:52 WBC 15.7 H (4.3-11.1) K/mcL Hgb 14.3 (12.9-16.9) g/dL Hct 45.3 (37.5-50.1) % Plt Count 219 (140-400) K/mcL Neutrophils # 11.1 H (1.6-8.9) K/mcL BMP 11/03/17 06:52 Sodium 139 Potassium 3.3 L Chloride 102 Carbon Dioxide 32 H BUN 19 Creatinine 1.28 Glucose 119 H Calcium 8.5 L Cardiac Enzymes 11/03/17 11/03/17 Range/Units 06:52 12:27 Troponin I 0.18 H* 0.07 H* (< 0.04) ng/mL - ABG Interpretation ABG results: ABG ABG pH 7.31 pH Units (7.32-7.45) L 11/02/17 23:10 ABG pCO2 59 mmHg (35-45) H 11/02/17 23:10 ABG pO2 88 mmHg (85-104) 11/02/17 23:10 ABG O2 Saturation 96 % (95-98) 11/02/17 23:10 PT/INR, D-dimer PT 10.1 Seconds (9.4-12.1) 11/02/17 21:59 - Impressions Impressions Chest CTA 11/03/17 21:14 IMPRESSION: No findings to suggest pulmonary embolus Right greater than left basilar airspace disease with right larger than left small effusions. This is nonspecific and may represent atelectasis or pneumonia Enlarged right hilar lymph nodes. Reactive nodes are favored over neoplastic nodes. Follow-up recommended Stellate opacity in the left upper lobe is noted. This may represent additional focal airspace disease, however a neoplastic nodule cannot be excluded and follow-up is recommended D/ / Christopher Swan / Christopher Swan Interpreting Provider: Christopher Swan Consult Discharge Plan - Plan [facility]errals: [facility] [Primary Care Provider] -
[2017-11-03] MEDS ORDERED: *HR* Heparin 5,000 UNIT/ML VIAL IVP PRN ×2 (16:33)
[2017-11-03] MEDS ORDERED: *HR* Heparin 5,000 UNIT/ML VIAL IVP ONE (16:33)
[2017-11-03] MEDS ORDERED: Furosemide 20 MG/2 ML VIAL IVP ONE (16:33)
[2017-11-03] MEDS ORDERED: Loratadine 10 MG TABLET PO PRN (16:40)
[2017-11-03] MEDS ORDERED: traZODone 50 MG TABLET PO PRN (16:40)
[2017-11-03] MEDS ORDERED: Heparin 25,000 UNIT/500 ML D5W 25,000 UNIT/500 ML BAG IVC SCH (16:45)
[2017-11-03 16:57] LABS: Hematocrit 47.9 % (37.5-50.1); Hemoglobin 14.9 g/dL (12.9-16.9); Mean Corpuscular HGB Conc 31.1 g/dL (31.6-35.5); Mean Corpuscular Hemoglobin 28.4 pg (28.0-33.3); Mean Corpuscular Volume 91.2 fL (83.0-100.0); Mean Platelet Volume 11.2 fL (9.4-12.4); Platelet Count 219 K/mcL (140-400); Red Blood Count 5.25 M/mcL (4.19-5.50); Red Cell Distribution Width 14.9 % (11.5-14.5)
[2017-11-03 17:05] LABS: Activated Partial Thrombo Time 29.6 Seconds (26.0-36.0)
[2017-11-03] MEDS ORDERED: Levofloxacin 750 MG/150 ML 750 MG/150 ML BAG IVPB SCH (21:00)
[2017-11-03] MEDS: Budesonide/Formoterol 160/4.5 MDI IH SCH (22:07)
[2017-11-03] MEDS ORDERED: Levofloxacin 500 MG/100 ML 500 MG/100 ML BAG IVPB SCH (23:00)
[2017-11-03] MEDS: Nicotine 14 MG PATCH.TD24 TD SCH (23:37)
[2017-11-04 01:34] LABS: Hematocrit 45.4 % (37.5-50.1); Hemoglobin 14.4 g/dL (12.9-16.9); Mean Corpuscular HGB Conc 31.7 g/dL (31.6-35.5); Mean Corpuscular Volume 88.3 fL (83.0-100.0); Mean Platelet Volume 11.9 fL (9.4-12.4); Platelet Count 234 K/mcL (140-400); Red Blood Count 5.14 M/mcL (4.19-5.50); Red Cell Distribution Width 14.7 % (11.5-14.5)
[2017-11-04 01:51] LABS: BUN/Creatinine Ratio 21 (6-26); Blood Urea Nitrogen 27 mg/dL (6-20); Calcium 8.9 mg/dL (8.6-10.3); Carbon Dioxide 27 mEq/L (23-29); Chloride 103 mEq/L (98-107); Glucose 167 mg/dL (70-105); Osmolality,Calculated 295 (280-300); Potassium 4.8 mEq/L (3.5-5.1); Sodium 138 mEq/L (136-145); eGFR For African Americans > 60 (> 60); eGFR For Non-African Americans > 60 (> 60)
[2017-11-04 01:59] LABS: Thyroid Stimulating Hormone 0.299 mcIU/mL (0.340-5.600)
[2017-11-04] MEDS ORDERED: Pantoprazole 40 MG VIAL IVP ONE (03:43)
[2017-11-04] MEDS: Ipratropium/Albuterol Neb 3 ML IH SCH ×3 (04:15→15:44)
[2017-11-04] MEDS: MethylPREDNISolone 40 MG/ML VIAL IVP SCH ×3 (04:54→17:56)
--- NOTE | 2017-11-04 06:41 | Electrocardiograph Report ---
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
--- NOTE | 2017-11-04 08:03 | Electrocardiograph Report ---
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
[2017-11-04 08:23] LABS: Estimated Average Glucose 126 mg/dl
[2017-11-04] MEDS: Aspirin Enteric Coated 81 MG Tablet PO SCH (09:22)
[2017-11-04] MEDS: Nicotine 14 MG PATCH.TD24 TD SCH (09:23)
[2017-11-04 10:25] LABS: Adenovirus Not Detected (Not Detect); Bordetella Pertussis Not Detected (Not Detect); Chlamydophila pneumoniae Not Detected (Not Detect); Coronavirus 229E Not Detected (Not Detect); Coronavirus HKU1 Not Detected (Not Detect); Coronavirus NL63 Not Detected (Not Detect); Coronavirus OC43 Not Detected (Not Detect); Human Metapneumovirus Not Detected (Not Detect); Human Rhinovirus/Enterovirus Not Detected (Not Detect); Influenza A Subtype 2009 H1 Not Detected (Not Detect); Influenza A Untypeable Not Detected (Not Detect); Influenza B Not Detected (Not Detect); Mycoplasma pneumoniae Not Detected (Not Detect); Parainfluenza Virus 1 Not Detected (Not Detect); Parainfluenza Virus 2 Not Detected (Not Detect); Parainfluenza Virus 3 Not Detected (Not Detect); Parainfluenza Virus 4 Not Detected (Not Detect); Respiratory Syncytial Virus Not Detected (Not Detect)
--- NOTE | 2017-11-04 10:52 | Cardiology Consult Note ---
Date of Encounter: 11/04/17 Time of Encounter: 10:50 Assessment and Plan (1) NSTEMI (non-ST elevated myocardial infarction) Current Visit: Yes Status: Acute Troponin 0.16, 0.18, 0.07. EKG with new anterolateral EKG changes. TTE EF newly reduced 30-35%, global. Echo 09/2017 EF was 50-55%. On heparin gtt. ASA, Statin, BB. Risk factors for CAD include HTN and tobacco abuse. Recommend C to further evaluate. R/B/A discussed. Pt agrees to proceed. Plan for LHC today. (2) Cardiomyopathy Current Visit: Yes Status: Acute NICMP vs ICMP. EF newly reduced 30-35%, global. EF previously normal 09/2017 50-55%. 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 Denies ETOH use. LHC today to further evaluate. Continue BB. Plan to add ACEi if renal function and BP tolerate. Qualifiers: Cardiomyopathy type: unspecified Qualified Code(s): I42.9 - Cardiomyopathy , unspecified (3) Tobacco abuse Current Visit: Yes Status: Chronic Smoking cessation counseling given. (4) Acute systolic (congestive) heart failure Current Visit: Yes Status: Acute BNP 1396. CXR with increased bibasilar reticular opacities may reflect mild interstitial edema or atypical infection. No focal consolidation. TTE EF newly reduced 30-35%. Was given one time dose of Lasix on admission. Start PO maintenance dose of Lasix. Continue BB, attempt to add ACEi if renal function and BP tolerate after LHC. LHC today. Discussion w patient/family: The assessment and plan as outlined above was discussed with the patient and/or family members who expressed understanding and agreement. All questions were answered. Thank you for involving us in the care of your patient. Please call with any questions. I will discuss all the above with Dr. Chung and make changes as necessary. History of Present Illness Consult date: 11/04/17 Requesting physician: Bharati Farley Consult reason: elevated troponin, CHF Chief complaint: dyspnea History of present illness: Mr. Brink is a 51 year old male with PMH of COPD, tobacco abuse, that presented to ED with complaint of 2 days progressive worsening dyspnea. He denies chest pain or lower extremity edema. CXR revealed increased bibasilar reticular opacities may reflect mild interstitial edema or atypical infection. No focal consolidation. Troponins 0.16, 0.18, 0.07. BNP 1396. Echo resulted--EF newly reduced 30-35% compared to prior echo 09/2017 when EF was 50-55%. EKG also with new anterolateral ischemic. Past Med Surg Social Fam HX - Past Medical History Medical history: COPD, GERD, hypertension, other Psychiatric history: no psych history - Past Surgical History Surgical History: non-contributory, other - Social History Smoking Status: Current every day smoker Packs per day: 1 Smokeless Tobacco Status: No Alcohol use: none Drug use: none, other - Family History Mother Living Status: Still Living Father Living Status: Hx Family Cardiac Disorders: Yes (CHF) Medications and Allergies Albuterol Sulfate [Albuterol Inhaler] 2 puff IH Q6HR PRN 09/25/17 [History] Budesonide/Formoterol 160/4.5 [Symbicort 160/4.5] 1 puff IH BIDR 09/25/17 [ History] Tamsulosin HCl [Flomax] 0.4 mg PO DAILY 09/25/17 [History] hydroCHLOROthiazide [Hydrochlorothiazide] 25 mg PO DAILY 09/25/17 [History] Ipratropium/Albuterol Neb [Duoneb] 3 ml IH BID PRN 11/03/17 [History] Loratadine [Allergy Relief] 10 mg PO DAILY PRN 11/03/17 [History] Oxygen 2 l NS CONT 11/03/17 [History] traZODone [TraZODone] 50 mg PO HS PRN 11/03/17 [History] 3 Allergy/AdvReac Type Severity Reaction Status Date / Time No Known Allergies Allergy Verified 08/09/15 23:34 All Systems Review: The remainder of the systems were reviewed and are negative - Cardiovascular Cardiovascular: as per HPI, dyspnea at rest, dyspnea on exertion - Respiratory Respiratory: dyspnea Physical Examination Vital Signs, Last 4 Hours Temp Pulse Resp BP Pulse Ox 11/04/17 07:57 97.6 F 84 16 125/90 96 Vital Signs Temp Pulse Resp BP Pulse Ox 11/04/17 07:57 97.6 F 84 16 125/90 96 11/04/17 04:15 18 94 11/04/17 00:00 97.6 F 82 16 118/87 94 11/03/17 22:07 18 94 11/03/17 21:14 97.6 F 81 16 120/93 94 11/03/17 16:00 16 96 11/03/17 15:15 97.8 F 75 18 108/81 94 11/03/17 11:45 98.5 F 92 18 136/99 95 Intake and Output 11/03/17 11/04/17 11/04/17 23:59 07:59 15:59 Intake Total 360 / 360 145 / 145 Balance 360 / 360 145 / 145 Intake: IV Fluids 145 / 145 Heparin 25,000 UNIT/500 ML D5W 145 / 145 25,000 unit In 500 ml @ 12 UNIT /KG/HR 15.785 mls/hr IVC .Q24H MARITO Rx#:[id number] Oral 360 / 360 0 / 0 Other: # Voids 1 Weight 145.6 kg General: Conversant, No Apparent Distress HEENT: Atraumatic, Normocephaly, Mucus Membranes Moist Neck: Normal carotid pulses Cardiac: Reg Rate and Rhythm, Normal S1 and S2, No Murmur Lungs: Other (diminished) Neuro: Alert and responsive Abdomen: Soft, Non-Tender Skin: No rashes noted on visualized skin Musculoskeletal: No Chest Wall Tenderness Extremities: No Clubbing, No Cyanosis, No Edema, Normal Pulses Results 11/04/17 01:13 11/04/17 01:13 Lab Results 11/03/17 11/03/17 11/03/17 12:27 16:47 16:47 WBC 11.7 H Hgb 14.9 Hct 47.9 Plt Count 219 INR 1.0 APTT 29.6 Sodium Potassium Chloride Carbon Dioxide BUN Creatinine Glucose Calcium Troponin I 0.07 H* TSH 11/04/17 11/04/17 11/04/17 01:13 01:13 01:13 WBC 16.0 H Hgb 14.4 Hct 45.4 Plt Count 234 INR APTT Sodium 138 Potassium 4.8 D Chloride 103 Carbon Dioxide 27 BUN 27 H Creatinine 1.27 Glucose 167 H Calcium 8.9 Troponin I TSH 0.299 L 11/04/17 11/04/17 01:13 08:11 WBC Hgb Hct Plt Count INR APTT 37.3 H 77.6 H D Sodium Potassium Chloride Carbon Dioxide BUN Creatinine Glucose Calcium Troponin I TSH Short CBC 11/04/17 11/03/17 Range/Units 01:13 16:47 WBC 16.0 H 11.7 H (4.3-11.1) K/mcL Hgb 14.4 14.9 (12.9-16.9) g/dL Hct 45.4 47.9 (37.5-50.1) % Plt Count 234 219 (140-400) K/mcL BMP 11/04/17 Range/Units 01:13 Sodium 138 (136-145) mEq/L Potassium 4.8 D (3.5-5.1) mEq/L Chloride 103 (98-107) mEq/L Carbon Dioxide 27 (23-29) mEq/L BUN 27 H (6-20) mg/dL Creatinine 1.27 (0.70-1.30) mg/dL Glucose 167 H (70-105) mg/dL Calcium 8.9 (8.6-10.3) mg/dL Cardiac Enzymes 11/03/17 Range/Units 12:27 Troponin I 0.07 H* (< 0.04) ng/mL Impressions Echocardiogram Limited Views 11/03/17 01:17 Impressions: LVEF 30-35%. Global LV systolic dysfunction. Normal right ventricular size with low normal function. When compared to prior echo 09/25/2017, LV systolic function is newly reduced. Left Ventricular Wall Motion: Rest Echo Findings The apex, apical inferior, mid inferior, basal inferior, apical anterior, mid anterior, basal anterior, apical septal, mid inferior septal, basal inferior septal, apical lateral, mid anterior lateral, basal anterior lateral, mid anterior septal, mid inferior lateral, basal anterior septal and basal inferior lateral cooney were hypokinetic. Findings: Study Quality * Technically adequate exam. ECG Findings * Normal sinus rhythm. Right Ventricle * Normal right ventricular size with low normal function. Aorta * Normally sized aortic root. Pericardium * There is no pericardial effusion present. Left Ventricle * LVEF 30-35%. * Normal LV chamber size. * Mild to moderate concentric left ventricular hypertrophy. IVC * The IVC is not dilated. * Sniff not obtained. Active Medications Albuterol Sulfate (Albuterol Inhaler) 2 puff IH Q6HR PRN PRN Reason: Dyspnea Stop: 05/05/18 16:41 Albuterol/Ipratropium (Duoneb) 3 ml IH QIDR MARITO Stop: 05/05/18 01:16 Last Admin: 11/04/17 04:15 Dose: 3 ml Albuterol/Ipratropium (Duoneb) 3 ml IH [id number] PRN PRN Reason: Shortness Of Breath/Wheezing Stop: 05/05/18 01:11 Aspirin (Aspirin Ec) 81 mg PO DAILY MARITO Stop: 05/05/18 09:01 Last Admin: 11/04/17 09:22 Dose: 81 mg Budesonide/Formoterol Fumarate (Symbicort) 1 puff IH BIDR MARITO PRN Reason: Protocol Stop: 05/05/18 22:01 Last Admin: 11/03/17 22:07 Dose: 1 puff Carvedilol (Coreg) 12.5 mg PO BIDWM MARITO PRN Reason: Protocol Stop: 05/05/18 17:01 Last Admin: 11/04/17 09:22 Dose: 12.5 mg Heparin Sodium (Porcine) (Heparin) 3,900 unit 60 unit/kg (3900 unit) IVP Q6HR PRN PRN Reason: SEE COMMENTS Stop: 05/05/18 16:34 Last Admin: 11/04/17 02:14 Dose: 3,900 unit Heparin Sodium (Porcine) (Heparin) 2,000 unit 30 unit/kg (2000 unit) IVP Q6H PRN PRN Reason: SEE COMMENTS Stop: 05/05/18 16:34 Heparin Sodium/Dextrose (Heparin 25,000 Unit/500 Ml D5w) 25,000 unit in 500 mls @ 15.785 mls/hr IVC .Q24H MARITO; 12 UNIT/KG/HR PRN Reason: Protocol Stop: 05/05/18 16:46 Last Titration: 11/04/17 02:11 Dose: 16 unit/kg/hr, 21.047 mls/hr Levofloxacin/Dextrose (Levaquin Premix 750mg/150 Ml) 750 mg in 150 mls @ 100 mls/hr IVPB HS MARITO PRN Reason: Protocol Stop: 05/05/18 21:01 Last Admin: 11/04/17 00:06 Dose: 100 mls/hr Loratadine (Claritin) 10 mg PO DAILY PRN; Protocol PRN Reason: Allergy Symptoms Stop: 05/05/18 16:41 Methylprednisolone (Solu-Medrol) 40 mg IVP Q6HR MARITO Stop: 05/05/18 06:01 Last Admin: 11/04/17 04:54 Dose: 40 mg Metoprolol Tartrate (Lopressor) 5 mg IVP Q6H PRN PRN Reason: tachy Stop: 11/04/17 19:16 Naloxone HCl (Narcan) 0.4 mg IVP Q2MIN PRN PRN Reason: SEE COMMENTS Stop: 05/05/18 01:07 Nicotine (Nicoderm) 14 mg TD DAILY MARITO PRN Reason: Protocol Stop: 05/05/18 23:31 Last Admin: 11/04/17 09:23 Dose: Not Given Tamsulosin HCl (Flomax) 0.4 mg PO HS MARITO PRN Reason: Protocol Stop: 05/05/18 21:01 Last Admin: 11/03/17 22:51 Dose: 0.4 mg Trazodone HCl (Trazodone) 50 mg PO HS PRN PRN Reason: Insomnia Stop: 05/05/18 16:41 - Imaging and Cardiology Echo: report reviewed - EKG Interpretation EKG results cardiology: personally reviewed (Sinus tach, HR 120, anterolateral ischemia), other (12 hr tele AVG HR 90, SR, 3 beat run NSVT) Consult Discharge Plan - Plan Referrals: [facility] [Primary Care Provider] -
[2017-11-04] MEDS: Budesonide/Formoterol 160/4.5 MDI IH SCH (10:55)
--- NOTE | 2017-11-04 11:01 | Internal Med Progress Note ---
Date of Encounter: 11/04/17 Time of Encounter: 11:01 - Assessment and plan (1) NSTEMI (non-ST elevated myocardial infarction) Current Visit: Yes Status: Acute Assessment and plan: serial troponin 0.16, 0.18, 0.07. EKG with new anterolateral EKG changes. TTE with EF 30-35% (EF previously 50-55% 09/2017). Cont heparin gtt, ASA, Statin, BB. Cardiology planning [facility] 11/04 (2) Acute systolic (congestive) heart failure Current Visit: Yes Status: Acute Assessment and plan: TTE with EF 30-35% (EF previously 50% 09/2017). Received 2 doses IV Lasix. Does not appear overtly overloaded. Discussed with cardiology and plan for diagnostic left heart catheterization with newly reduced EF. Low dose BB added. PO lasix added per Cardiology recommendations. Add NORAH post [facility] if renal function remains stable. Cardiology following (3) Pneumonia Current Visit: Yes Status: Acute Assessment and plan: Of unspecified organism. Presented with SOB. CXR concerning for bibasilar edema or atypical pneumonia. Chest CTA with bilateral airspace disease concerning for pneumonia, enlarged hilar lymph node, negative for pulmonary embolism. Clinically appears to be pneumonia with productive cough and adventitious breath sounds. Respiratory PCR negative. Cont IV levaquin, steroids. Urinary antigens, sputum cx pending Qualifiers: Pneumonia type: due to unspecified organism Laterality: bilateral Lung location: lower lobe of lung Qualified Code(s): J18.1 - Lobar pneumonia, unspecified organism (4) Sepsis Current Visit: Yes Status: Acute Assessment and plan: With tachycardia, elevated WBC and elevated lactic acid. Suspected source pneumonia. Chest CTA shows bilateral airspace disease concerning for pneumonia. Elevated WBC could be secondary to steroids; initial lactic acid normal. He lactic acid elevated at 3.1; possibly secondary to COPD exacerbation with diffuse wheezing. Unable to give IV fluids with newly reduced EF. Continue IV Levaquin, steroids. Blood culture, urine culture, urinary antigens pending. Qualifiers: Sepsis type: sepsis due to unspecified organism Qualified Code(s): A41.9 - Sepsis, unspecified organism (5) Acute exacerbation of chronic obstructive airways disease Current Visit: No Status: Acute Assessment and plan: presented with SOB. CXR concerning for bibasilar edema or atypical pneumonia. Chest CTA with bilateral airspace disease concerning for pneumonia, enlarged hilar lymph node, negative for pulmonary embolism. Clinically appears to be pneumonia with productive cough and adventitious breath sounds. Respiratory PCR negative. Cont IV levaquin, steroids. Urinary antigens, sputum cx pending (6) Lung nodule Current Visit: Yes Status: Acute Assessment and plan: chest CTA with enlarged right hilar lymph nodes and stellate opacity in the left upper lobe is noted. This may represent additional focal airspace disease , however a neoplastic nodule cannot be excluded and follow-up is recommended. With history of tobacco use he is considered high risk. Will need follow-up CT. (7) DVT prophylaxis Current Visit: No Status: Resolved Assessment and plan: heparin gtt - Subjective Interval history: Seen and examined at bedside; says he had an uneventful night. Still short of breath and has a nonproductive cough but overall improved. Denies chest pain. Discussed with him at length findings of repeat TTE and severely reduced EF. He verbalizes understanding and is agreeable to left heart catheterization as recommended per cardiology. - Constitutional Vitals: Temp Pulse Resp BP Pulse Ox 97.6 F 84 16 125/90 96 11/04/17 07:57 11/04/17 07:57 11/04/17 07:57 11/04/17 07:57 11/04/17 07:57 General appearance: Present: mild distress, A&O X 3 - Head Head exam: Present: atraumatic, normocephalic - Eye Eye exam: Present: PERRL, conjuntiva pink, sclera anicteric Pupils: Present: PERRL - Neck Neck exam general surgery: Present: supple, trachea midline. Absent: lymphadenopathy - Respiratory Respiratory exam: Present: decreased breath sounds, wheezes. Absent: accessory muscle use, rales, rhonchi - Cardiovascular Cardiovascular exam: Present: RRR, +S1, +S2. Absent: diastolic murmur, gallop, rubs, systolic murmur - GI/Abdominal GI/Abdominal exam: Present: normal bowel sounds, soft, no peritoneal signs. Absent: distended, tenderness - Extremities Exam Extremities exam: Present: warm, radial pulses palpable and symmetrical. Absent : calf tenderness, cyanotic, pedal edema - Neurological Exam Neurological exam: Present: CN II-XII intact, oriented X3, no focal deficits. Absent: pronater drift, facial droop, speech deficit - Skin Skin exam: Present: dry, intact Internal Medicine: Result - Labs CBC & Chem 7: 11/04/17 01:13 11/04/17 01:13 Labs: Short CBC 11/03/17 11/04/17 Range/Units 16:47 01:13 WBC 11.7 H 16.0 H (4.3-11.1) K/mcL Hgb 14.9 14.4 (12.9-16.9) g/dL Hct 47.9 45.4 (37.5-50.1) % Plt Count 219 234 (140-400) K/mcL BMP 11/04/17 01:13 Sodium 138 Potassium 4.8 D Chloride 103 Carbon Dioxide 27 BUN 27 H Creatinine 1.27 Glucose 167 H Calcium 8.9 Cardiac Enzymes 11/03/17 Range/Units 12:27 Troponin I 0.07 H* (< 0.04) ng/mL - ABG Interpretation ABG results: ABG ABG pH 7.31 pH Units (7.32-7.45) L 11/02/17 23:10 ABG pCO2 59 mmHg (35-45) H 11/02/17 23:10 ABG pO2 88 mmHg (85-104) 11/02/17 23:10 ABG O2 Saturation 96 % (95-98) 11/02/17 23:10 PT/INR, D-dimer PT 11.0 Seconds (9.4-12.1) 11/03/17 16:47 Consult Discharge Plan - Plan [facility]: [facility] [Primary Care Provider[facility] -
[2017-11-04] MEDS ORDERED: 0.9 % Sodium Chloride 1,000 ML ONE ×2 (13:32→14:01)
[2017-11-04] MEDS ORDERED: Heparin 1,000 UNITS/500 mL 500 ML ONE (13:32)
[2017-11-04] MEDS ORDERED: ISOVUE-370 200 ML INFUS..BTL IV ONE (13:32)
[2017-11-04] MEDS ORDERED: *HR* Heparin 10,000 UNIT/10 ML VIAL ONE (13:32)
[2017-11-04] MEDS ORDERED: Verapamil 5 MG/2 ML VIAL ONE (13:36)
[2017-11-04] MEDS ORDERED: Nitroglycerin 1,000 MCG/10 ML VIAL IV ONE (13:36)
--- NOTE | 2017-11-04 14:11 | Pre-Sedation Evaluation ---
Pre-sedation evaluation - Pre-sedation checklist Date of procedure: 11/04/17 Procedure: left heart cath Recent Vitals: Last Vital Signs Temp 97.7 F 11/04/17 11:38 Pulse 85 11/04/17 11:38 Resp 16 11/04/17 11:38 BP 119/98 11/04/17 11:38 Pulse Ox 98 11/04/17 11:38 H&P (including ROS) documented in medical record: Yes Previous reaction to sedatives/anesthetics: No Dietary Status: NPO after Midnight Dentition: No loose teeth or bridges ASA Classification *see protocol: CLASS II-Mild systemic disease Plan of Care: Pt appropriate candidate for procedure/moderate/conscious sedation , Risks/benefits of procedure/sedation discussed w/ patient/family
[2017-11-04] MEDS ORDERED: *HR* Midazolam HCl 2 MG/2 ML VIAL ONE (14:15)
[2017-11-04] MEDS ORDERED: *HR* FentaNYL (PF) 100 MCG/2 ML VIAL ONE (14:15)
--- NOTE | 2017-11-04 14:51 | Invasive Diagnostic Lab Proc ---
Name: Yogi Brink Date of Study: 11/04/2017 Date: 1965 Ht: 68.9in Medical Record#: [id number] Age: 51 Wt: 145.00lb Gender: Male BSA: 1.8 Order #: [id number] BMI: 21.48 Physicians Procedure Physician: Tremaine Moralez MD, [facility] Referring MD: Referring MD: Staff Name Position Time In Melba Ruvalcaba RN Monitor 02:13 PM Nicolás Ivey RN Turret Press Operator 02:13 PM Missy Loyd RN Turret Press Operator 02:13 PM Jose Elias Gil RT (R) Scrub 02:13 PM Indications Indication Non-Stemi Procedures Performed Procedure L HRT ARTERY/VENTRICLE ANGIO Pre-Procedure Checklist Informed consent is complete signed and on chart. H&P is on chart. ID band is on and ID verified with patient. Patient NPO for procedure The procedure was described for the patient and questions were answered. Blood Pressure: 119/98 ECG is on chart. Plan of Care Patient will tolerate the procedure without complications. Adequate level of comfort will be maintained. Hemodynamics will remain stable Patient will recover from procedure without complications. Respiratory function will be maintained. Cardiac rhythm will remain stable. Patient temperature will be maintained. Patient and/or family have verbalized understanding of the procedure. Patient Education Chief Complaint/Reason for Test: Cardiac Cath Developmental Category: Adult (18-64 years) Developmentally Appropriate for Age: Yes Learning Barriers: None Education Needs: Procedure Education Method: Verbal Information Taught: Cardiac Cath Educational Evaluation: Able to repeat information Intravenous Access Time IV Size Location DC'd Fluid/Drip Rate Units RN 01:08 PM 20g 1 1/4" Patent On Arrival Lt Wrist Melba Ruvalcaba RN 01:09 PM 20g 1 1/4" Patent On Arrival Lt Antecubital Melba Ruvalcaba RN Allergies No Known Allergies Vital Signs Time BP (mmHg) HR (bpm) O2 Sat. RR (bpm) LOC 01:09 PM 119 / 98 85 98 % 16 5 = Fully awake and oriented or at pre-proc level 02:15 PM / % 5 = Fully awake and oriented or at pre-proc level 02:15 PM / % 4 = Oriented but drowsy 02:15 PM 123 / 85 70 94 % 20 02:20 PM 114 / 80 77 92 % 20 02:25 PM 110 / 75 78 92 % 20 02:30 PM 104 / 72 84 87 % 21 Procedural Medications Time Medication Dose Units Method Given By 02:14 PM Oxygen 2 L/min nasal cannula Nicolás Ivey RN 02:16 PM Versed 2 mg Intravenous Nicolás Ivey RN 02:16 PM Fentanyl 50 mcg Intravenous Nicolás Ivey RN 02:23 PM Lidocaine 2% 0.5 ml Subcutaneous Tremaine Moralez MD, [facility] 02:27 PM Heparin 2000 units Nitroglycerin 200 mcg Verapamil 2.5 mg Intraarterial Tremaine Moralez MD, [facility] ASA Classification: CLASS II- Mild systemic disease (i.e. well-controlled diabetes, hypertension, asthma, cigarette smoking) Kaylin Score Preprocedure Postprocedure Activity 2- Moves 4 extremities sustained head lift Activity 2- Moves 4 extremities sustained head lift Circulation 2- SBP +/= 20 points of pre-anesthetic level Circulation 2- SBP +/= 20 points of pre-anesthetic level Consciousness 2- Awake and alert oriented x 3 Consciousness 2- Awake and alert oriented x 3 O2 Saturation 2- Able to maintain O2 satruation of 92% on room air O2 Saturation 2- Able to maintain O2 satruation of 92% on room air Respiratory 2- Able to deep breathe and cough well Respiratory 2- Able to deep breathe and cough well Total Score 10 Total Score 10 Contrast Agent: Isovue Diagnostic Contrast: 47 ml Total Contrast: 47 ml Fluoro Dose: 101 mGy Procedure Log Time Note Enter By 02:13 PM Pt arrived to labels molder 2 at 14:13 [email or web address] 02:13 PM Melba Ruvalcaba RN Position: Monitor Time in: 14:13 [email or web address] 02:13 PM Nicolás Ivey RN Position: Turret Press Operator Time in: 14:13 [email or web address] 02:13 PM Missy Loyd RN Position: Turret Press Operator Time in: 14:13 [email or web address] 02:13 PM Jose Elias Gil RT (R) Position: Scrub Time in: 14:13 [email or web address] 02:13 PM Patient charges- Angio tray pack, Navilyst 3mm J, Pulse Oximetry and ACIST tubing and transducer [email or web address] 02:14 PM Case Delayed No [email or web address] 02:14 PM Hair removed from procedure site in procedure lab using clippers. Right wrist & Right groin prepped with Chloraprep by Missy Loyd RN, then patient was draped. Skin intact. [email or web address] 02:14 PM Physicjaime paged/called 14:14. [email or web address] 02:14 PM Physican responded and notified patient is ready 14:14 [email or web address] 02:14 PM Physician arrived 14:14 [email or web address] 02:14 PM Meet and nu completed [email or web address] 02:14 PM Sign in performed according to hospital policy. [email or web address] 02:14 PM Procedure start 14:14 [email or web address] 02:14 PM Time: 14:14 Oxygen on at 2 L/min per nasal cannula by Nicolás Ivey RN [email or web address] 02:15 PM CathStat 02:15 PM Vitals capture started with the following parameters, Patient=Adult, Interval=5 min, Initial Ykfqpfbu=125 mmHg, Deflation Rate=3 mmHg, Cuff placed on Right Arm 02:15 PM HR=70 bpm, DQEY=278/85 mmhg, SpO2=94.0 %, Resp=20 B/min 02:15 PM Time: 14:15LOC: 5 = Fully awake and oriented or at pre-proc level [email or web address] 02:16 PM Time: 14:16 Versed 2 mg Intravenous Given by Nicolás Ivey RN [email or web address] 02:16 PM Time: 14:16 Fentanyl 50 mcg Intravenous Given by Nicolás Ivey RN 02:17 PM ASA Class CLASS II- Mild systemic disease (i.e. well-controlled diabetes, hypertension, asthma, cigarette smoking) [email or web address] 02:18 PM Time: 14:15 Patient comfortable and pain free: Yes [email or web address] 02:19 PM Recorded ECG: HR=85 Condition=Condition 1 02:20 PM Pressure channel 1 zeroed. 02:20 PM HR=77 bpm, CQMA=008/80 mmhg, SpO2=92.0 %, Resp=20 B/min, Comment=NSR 02:22 PM Clinical Presentation: Non-STEMI [email or web address] 02:22 PM Time out performed according to hospital policy [email or web address] 02:23 PM Time: 14:23 0.5 ml Lidocaine 2% to right radial Subcutaneous Given by Tremaine Moralez MD, [facility] [email or web address] 02:25 PM HR=78 bpm, WZKU=527/75 mmhg, SpO2=92.0 %, Resp=20 B/min 02:27 PM Access obtained by percutaneous puncture. 6Fr 10cm Ter[place] sheath placed in right Radial artery. [id number] 02:27 PM Time: 14:27 Patient given 2,000 units Heparin, 200 mcg Nitroglycerin, and 2.5 mg Verapamil Intraarterial by Tremaine Moralez MD, FACC. This is given to reduce risk of vessel spasm and thrombosis. 02:27 PM 0.035 260cm Navilyst 3mmJ wire [id number] 02:27 PM 5Fr TIG catheter inserted over the wire [facility] 02:27 PM wire removed 02:28 PM Recorded Pressure: LV, HR=87, Condition=Condition 1 (Left Ventricle) LV 91/12/85 02:29 PM Recorded Pressure: LV, Ao, HR=82, Condition=Condition 1 (Left Ventricle) LV 92/2/63, (Aorta) Ao 90/68/77 02:29 PM Recorded Pressure: Ao, HR=87, Condition=Condition 1 (Aorta) Ao 87/73/80 02:29 PM Catheter selectively placed in left ventricle 02:30 PM Bolus angiogram of left Ventricle complete: 10 ml/sec for a total of 20 mls 02:30 PM LCA angiography performed in multiple views. 02:30 PM HR=84 bpm, RPPO=135/72 mmhg, SpO2=87.0 %, Resp=21 B/min, Comment=NSR 02:31 PM Time: 14:15LOC: 4 = Oriented but drowsy 02:31 PM RCA angiography performed in multiple views. 02:31 PM Recorded Pressure: Ao, HR=85, Condition=Condition 1 (Aorta) Ao 90/74/82 02:32 PM Catheter removed 02:32 PM Wire removed 02:32 PM Procedure completed at 14:32 02:33 PM Time: 14:18 Patient comfortable and pain free: Yes 02:34 PM Sign out completed: Radiation Dose 100.99 mGy Fluoro Time: 0.9 Isovue 370 - 200ml contrast 47 ml given by Tremaine Moralez MD, FACC. Complications: NoneCardiac Rehab Consult needed: NoConfirmed administered medications: Yes 02:34 PM Isovue 370 - 200ml,1 Bottle(s) used. tsoumm 02:34 PM Arterial sheath pulled, Vasc Band closure device used and was Successful S/N. oumm 02:34 PM 12 ml air in Vasc Band. oumm 02:34 PM Estimated Blood Loss: minimal oumm 02:34 PM Post ECG NSR tsoumm 02:34 PM Post Blood Pressure 104/72 tsoumm 02:34 PM 14:34 Post Pulses Rt Radial 1+ tsoumm 02:34 PM Information taught Cardiac Cath 02:34 PM Education needs Procedure, Plan of Care, and Responsibilities of Patient in Care oumm 02:34 PM Learning barriers :None 02:34 PM Education Methods Verbal 02:34 PM Education evaluation Able to repeat information oumm 02:34 PM Site status No bleeding/hematoma - Rt Wrist as reported by Jose Elias Gil RT (R) at 14:34 tsoumm 02:35 PM Plavix, Effient or Brilinta given No tsoummers 02:35 PM Delay to floor No tsoummers 02:35 PM No family present tsoumm 02:35 PM Complications: None oumm 02:35 PM Fluoro Time: 0.9 mm 02:35 PM Isovue 370 - 200ml contrast [address] Moralez. oumm 02:35 PM Radiation Dose 100.99 mGy oumm 02:39 PM Report given to Ayde DEVLIN Pt taken to E Room #35. 14:39 tsoumm 02:39 PM Patient out of room: 14:[email or web address] [facility] Complications Complication None Hemodynamics Pressures Site Systolic/A Wave Diastolic/V Wave Mean LV 91 12 85 LV 92 2 63 AO 90 68 77 AO 87 73 80 AO 90 74 82 Post Procedure Information Blood Pressure: 104/72 mmHg Rhythm: NSR Post procedural instructions were given Closure Device Time Device Success/Fail 11/04/2017 2:35:00 PM Mechanical Compression Successful Site Checks Time Location Status Staff Sheath In? Note 02:34 PM Rt Wrist No bleeding/hematoma Jose Elias Gil RT (R) Pulses Time Site Pre-Procedure Post-Procedure Note 11/04/2017 1:09:00 PM Bilateral radial 2+ 11/04/2017 1:09:00 PM Bilateral DP & PT 2+ 2:34:00 PM Rt Radial 1+ Updated by Melba Ruvalcaba RN on 11/04/2017 2:43:56 PM electronically signed on 11/04/2017 2:44:19 PM with status of Final
[2017-11-04 16:23] VITALS: BP 123/78
[2017-11-04] MEDS ORDERED: ALPRAZolam 1 MG TABLET PO ONE (17:36)
[2017-11-05] MEDS ORDERED: Furosemide 20 MG TABLET PO SCH (09:00)
[2017-11-06 10:37] LABS: Mycoplasma pneumoniae IgG 0.24 U/L (<=0.09)
--- NOTE | 2017-11-11 08:04 | Event Note ---
Date of Encounter: 11/04/17 Time of Encounter: 19:00 Was notified by nursing staff that patient left AMA on 11/04/2017
== END 2017-11-04 18:53 | disposition left against medical advice (07) | DRG 720 ==
LOC: EMEROO 21:09 → 2SOUTHHOLD 11-03 01:35 → 2NENU 11-03 19:00
PROVIDERS: ADMIT Internal Medicine Hematology & Oncology; ATTEND Internal Medicine Hematology & Oncology

== ENCOUNTER 2017-11-06 06:27 | Inpatient (IN) ==
[2017-11-06] MEDS ORDERED: *HR* Etomidate 20 MG/10 ML AMPUL IVP ONE ×2 (06:31→09:04)
[2017-11-06] MEDS ORDERED: *HR* Rocuronium Bromide 50 MG/5 ML VIAL IVP ONE (06:37)
--- NOTE | 2017-11-06 06:43 | Emergency Department Note ---
Disposition Clinical Impression: Acute respiratory failure with hypercapnia Pneumonia Qualifiers: Pneumonia type: due to unspecified organism Laterality: right Lung location: lower lobe of lung Qualified Code(s): J18.1 - Lobar pneumonia, unspecified organism Sepsis Qualifiers: Sepsis type: sepsis due to unspecified organism Qualified Code(s): A41.9 - Sepsis, unspecified organism Disposition: Admitted As Inpatient Condition: Critical [facility]errals: [facility] [Primary Care Provider] - Forms: ED Satisfaction Letter General Adult HPI - General Chief complaint: ED Shortness of Breath/Dyspnea Stated complaint: VINAY Time Seen by Provider: 11/06/17 06:36 Source: patient Mode of arrival: EMS Limitations: altered mental status Nursing Notes Reviewed: Yes Vital Signs Reviewed: Yes - History of Present Illness HPI Narrative: Patient is a 51-year-old male with a past medical history of COPD, GERD, and hypertension presenting to the emergency Department by squad unresponsive. The patient was recently admitted to the hospital and left A on 11/04/2017 in which she was being treated for an an NSTEMI, CHF, pneumonia and sepsis. According to the patient's family he has been having shortness of breath since leaving AMA and over the past 5 hours prior to arrival he became acutely worse and he was initially responsive however and routes the patient became unresponsive. On arrival the patient is agonal breathing, his pupils are reactive, his oxygen sat is in the 70%. The patient was bagged masked and intubated. - Related Data Home Medications Medication Instructions Recorded Confirmed Albuterol Sulfate [Albuterol 2 puff IH Q6HR PRN 09/25/17 11/06/17 Inhaler] Budesonide/Formoterol 160/4.5 1 puff IH BIDR 09/25/17 11/06/17 [Symbicort 160/4.5] Tamsulosin HCl [Flomax] 0.4 mg PO DAILY 09/25/17 11/06/17 hydroCHLOROthiazide 25 mg PO DAILY 09/25/17 11/06/17 [Hydrochlorothiazide] Ipratropium/Albuterol Neb [Duoneb] 3 ml IH BID PRN 11/03/17 11/06/17 Loratadine [Allergy Relief] 10 mg PO DAILY PRN 11/03/17 11/06/17 Oxygen 2 l NS CONT 11/03/17 11/06/17 traZODone [TraZODone] 50 mg PO HS PRN 11/03/17 11/06/17 Allergies Allergy/AdvReac Type Severity Reaction Status Date / Time No Known Allergies Allergy Verified 08/09/15 23:34 Limitations: ROS unobtainable due to patients medical condition Past Medical History - Past Medical History Attestation: Yes The following information was validated with the patient. Medical history: Reports: COPD, GERD, hypertension, other Surgical history: Reports: non-contributory, other Psychiatric history: Reports: no psych history - Social History Smoking Status: Current every day smoker Smokeless Tobacco Status: No Alcohol use: Reports: none Drug use: Reports: none, other Physical Exam - General Limitations: altered mental status General appearance: other (Unresponsive with agonal breathing.) - Head Head exam: atraumatic, normocephalic, normal inspection - Eye Eye exam: Present: normal appearance, EOMI - ENT ENT exam: normal exam, mucous membranes dry - Neck Neck exam: Present: normal inspection - Chest Chest inspection: Present: normal inspection, symmetric chest wall rise - Expanded Respiratory Exam Location: rales: Right, Lower, decreased breath sounds: Left, Right, Upper, Lower - Cardiovascular Cardiovascular exam: Present: tachycardia, +S1, +S2 - Abdominal Exam Abdominal exam: Present: soft, Non-Tender, normal bowel sounds - Extremities Exam Extremities exam: Present: normal inspection. Absent: pedal edema - Expanded Neurological Exam Coma Scale Eye Opening: None Coma Scale Motor Response: None Coma Scale Verbal Response: None Coma Scale Total: 3 - Skin Skin exam: Present: warm, dry, intact, normal color Course Course Narrative: Arrival the patient was immediately intubated due to being unresponsive and low oxygen saturation. Prior to intubation the patient was bag mask his oxygen sat was brought up to 100%. Procedure was performed with etomidate. The patient will undergo the sepsis protocol which included blood cultures, chest x-ray, basic labs, lactate we will initiate's broad-spectrum antibiotics for healthcare associated pneumonia. Patient also did undergo a head CT due to his unresponsiveness on arrival. Pending lab results patient will be admitted to the ICU. He will be transferred care to the day team Dr. Samano and Dr. Suarez. Vital Signs Temperature 98.8 F 11/06/17 06:34 Pulse Rate 125 11/06/17 06:34 Respiratory Rate 12 11/06/17 06:34 Blood Pressure 155/121 11/06/17 06:34 O2 Sat by Pulse Oximetry 100 11/06/17 06:34 Temperature 98.8 F 11/06/17 06:34 Pulse Rate 123 11/06/17 07:15 Respiratory Rate 18 11/06/17 07:15 Blood Pressure 163/124 11/06/17 07:15 O2 Sat by Pulse Oximetry 95 11/06/17 07:15 Oxygen Delivery Oxygen Delivery Ventilator Procedures - Intubation Time out performed: Yes sedative: Etomidate Mg Given: 20 Laryngoscope: Maddison ET Tube Size: 7.5 ET Tube Uncuffed: Yes Tube Secured Depth (cm): 20 Tube Secured Location: lips Tube Placement Confirmation: visualized tube passing through cords, equal breath sounds bilaterally, no breath sounds over epigastrium, confirmation by capnometry Patient Tolerated Procedure: well Intubation Complications: none Medical Decision Making - Medical Records Medical records reviewed: Yes I reviewed the patient's medical records. - Lab Data Result diagrams: 11/06/17 06:40 Lab Results 11/06/17 11/06/17 11/06/17 Range/Units 06:40 06:40 06:59 WBC 27.0 H D (4.3-11.1) K/mcL RBC 5.26 (4.19-5.50) M/mcL Hgb 14.9 (12.9-16.9) g/dL Hct 49.0 (37.5-50.1) % MCV 93.2 (83.0-100.0) fL MCH 28.3 (28.0-33.3) pg MCHC 30.4 L (31.6-35.5) g/dL RDW 15.3 H (11.5-14.5) % Plt Count 326 (140-400) K/mcL MPV 11.5 (9.4-12.4) fL Nucleated RBCs/100 WBC 0.1 H (0) /100 WBC VBG pH 7.13 L* (7.32-7.42) pH Units VBG pCO2 85 H* (41-51) mmHg VBG pO2 55 H (25-50) mmHg VBG HCO3 28 H (21-27) mEq/L Lactic Acid 1.9 (0.5-2.2) mmol/L Person Notif of Crit ER/DR WILSON - EKG Data EKG #1 EKG attestation: Yes I reviewed and interpreted this EKG. EKG results narrative: EKG done at 6:54 shows sinus tachycardia at a rate of 1 26 bpm. Normal axis. DC is 108, QRS is 13, QT is 300 and QTc is 375 and these are within normal limits. There are no signs of ST elevation, ST depression or Q waves present at this time. The patient does have T-wave inversions in the precordial leads which are unchanged from prior EKG done on 11/03/2017. SJoel - Hernán Situation: Demographics, MOA Background: Presenting Complaint, Relevant PMH, Meds, & Allergies Assessment: Vital Signs, Course and respsone to treatment, Exam Concerns, Patient/Family Expectation, Pertinant Lab Results, Outstanding Labs Recommendation: Barrier(s) to disposition, Recommendation based on pending studies, treatments, or consults SJoel Report Given to: Dr. Selwyn Jim Repor Time: 07:11
[2017-11-06] MEDS ORDERED: Levofloxacin 500 MG/100 ML 500 MG/100 ML BAG IVPB ONE (06:56)
[2017-11-06] MEDS ORDERED: Piperacillin/Tazobactam 3.375 GM in 0.9 % Sodium Chloride Mini Bag 100 ML IVPB ONE (06:56)
[2017-11-06] MEDS ORDERED: 0.9 % Sodium Chloride 1,000 ML IVC ONE (06:58)
[2017-11-06 07:02] LABS: Basophils # 0.1 K/mcL (0.0-0.2); Basophils % 0.5 %; Eosinophils % 0.1 %; Hemoglobin 14.9 g/dL (12.9-16.9); Immature Granulocytes % 1.9 % (0-4); Lymphocytes # 5.9 K/mcL (0.6-4.6); Lymphocytes % 21.8 %; Mean Corpuscular HGB Conc 30.4 g/dL (31.6-35.5); Mean Corpuscular Hemoglobin 28.3 pg (28.0-33.3); Mean Corpuscular Volume 93.2 fL (83.0-100.0); Mean Platelet Volume 11.5 fL (9.4-12.4); Monocytes # 2.6 K/mcL (0.0-1.3); Monocytes % 9.6 %; Nucleated Red Blood Cells 0.1 /100 WBC (0); Platelet Count 326 K/mcL (140-400); Red Blood Count 5.26 M/mcL (4.19-5.50); Red Cell Distribution Width 15.3 % (11.5-14.5); Segmented Neutrophils % 66.1 %
[2017-11-06 07:03] LABS: Neutrophils # 17.9 K/mcL (1.6-8.9)
[2017-11-06 07:04] LABS: VBG HCO3 28 mEq/L (21-27); VBG PCO2 85 mmHg (41-51); VBG PH 7.13 pH Units (7.32-7.42); VBG PO2 55 mmHg (25-50)
[2017-11-06 07:26] LABS: Platelet Estimate Normal (Normal)
[2017-11-06] MEDS: Propofol 500 MG/50 ML INFUS..BTL IVC SCH ×5 (07:27→23:55)
--- NOTE | 2017-11-06 07:36 | Emergency Department Note ---
Disposition Clinical Impression: Acute respiratory failure with hypercapnia Pneumonia Qualifiers: Pneumonia type: due to unspecified organism Laterality: right Lung location: lower lobe of lung Qualified Code(s): J18.1 - Lobar pneumonia, unspecified organism Sepsis Qualifiers: Sepsis type: sepsis due to unspecified organism Qualified Code(s): A41.9 - Sepsis, unspecified organism Disposition: Admitted As Inpatient Condition: Critical [facility] Care Provider[facility] - Forms: ED Satisfaction Letter General Adult HPI - General Chief complaint: ED Shortness of Breath/Dyspnea Stated complaint: VINAY Time Seen by Provider: 11/06/17 06:36 Source: patient Mode of arrival: EMS Limitations: altered mental status - History of Present Illness Pain Scale: 0 - Related Data Home Medications Medication Instructions Recorded Confirmed Albuterol Sulfate [Albuterol 2 puff IH Q6HR PRN 09/25/17 11/06/17 Inhaler] Budesonide/Formoterol 160/4.5 1 puff IH BIDR 09/25/17 11/06/17 [Symbicort 160/4.5] Tamsulosin HCl [Flomax] 0.4 mg PO DAILY 09/25/17 11/06/17 hydroCHLOROthiazide 25 mg PO DAILY 09/25/17 11/06/17 [Hydrochlorothiazide] Ipratropium/Albuterol Neb [Duoneb] 3 ml IH BID PRN 11/03/17 11/06/17 Loratadine [Allergy Relief] 10 mg PO DAILY PRN 11/03/17 11/06/17 Oxygen 2 l NS CONT 11/03/17 11/06/17 traZODone [TraZODone] 50 mg PO HS PRN 11/03/17 11/06/17 Allergies Allergy/AdvReac Type Severity Reaction Status Date / Time No Known Allergies Allergy Verified 08/09/15 23:34 Past Medical History - Past Medical History Medical history: Reports: COPD, GERD, hypertension, other Surgical history: Reports: non-contributory, other Psychiatric history: Reports: no psych history - Social History Smoking Status: Current every day smoker Smokeless Tobacco Status: No Alcohol use: Reports: none Drug use: Reports: none, other Physical Exam - General Limitations: altered mental status General appearance: other (Unresponsive with agonal breathing.) Course Vital Signs Temperature 98.8 F 11/06/17 06:34 Pulse Rate 125 11/06/17 06:34 Respiratory Rate 12 11/06/17 06:34 Blood Pressure 155/121 11/06/17 06:34 O2 Sat by Pulse Oximetry 100 11/06/17 06:34 Temperature 98.8 F 11/06/17 06:34 Pulse Rate 123 11/06/17 07:15 Respiratory Rate 18 11/06/17 07:15 Blood Pressure 163/124 11/06/17 07:15 O2 Sat by Pulse Oximetry 95 11/06/17 07:15 Oxygen Delivery Oxygen Delivery Ventilator Medical Decision Making - Lab Data Result diagrams: 11/06/17 06:40 Lab Results 11/06/17 11/06/17 11/06/17 Range/Units 06:40 06:40 06:59 WBC 27.0 H D (4.3-11.1) K/mcL RBC 5.26 (4.19-5.50) M/mcL Hgb 14.9 (12.9-16.9) g/dL Hct 49.0 (37.5-50.1) % MCV 93.2 (83.0-100.0) fL MCH 28.3 (28.0-33.3) pg MCHC 30.4 L (31.6-35.5) g/dL RDW 15.3 H (11.5-14.5) % Plt Count 326 (140-400) K/mcL MPV 11.5 (9.4-12.4) fL Immature Gran % 1.9 (0-4) % Seg Neutrophils % 66.1 % Lymphocytes % 21.8 % Monocytes % 9.6 % Eosinophils % 0.1 % Basophils % 0.5 % Neutrophils # 17.9 H (1.6-8.9) K/mcL Lymphocytes # 5.9 H (0.6-4.6) K/mcL Monocytes # 2.6 H (0.0-1.3) K/mcL Eosinophils # 0.0 (0.0-0.6) K/mcL Basophils # 0.1 (0.0-0.2) K/mcL Nucleated RBCs/100 WBC 0.1 H (0) /100 WBC Platelet Estimate Normal (Normal) VBG pH 7.13 L* (7.32-7.42) pH Units VBG pCO2 85 H* (41-51) mmHg VBG pO2 55 H (25-50) mmHg VBG HCO3 28 H (21-27) mEq/L Lactic Acid 1.9 (0.5-2.2) mmol/L Person Notif of Nereidat JOSE ALEJANDRO/DR WILSON Critical Care Time Critical Care Time: Yes Total Critical Care Time: 40 Attestation: Critical care performed: Time is exclusive of separately billable procedures. Time includes: direct patient care, patient reassessment, coordination of patient care, interpretation of data (laboratory data, radiology data, and respiratory data), review of patient's medical records, medical consultation and documentation of patient care. Procedures included in critical care time: Procedures excluded from critical care time: Endotracheal intubation Attestation Statement - Attestation Attestation: I, Mayur Velazquez MD, personally evaluated this patient and discussed their management with the resident physician. I reviewed the resident's note and agree with the documented findings, medical decision making, and plan of care. 51-year-old male presented to the emergency department by embolus for complaint of difficulty breathing which started about 4-5 hours prior to arrival. He was recently in the hospital for the same problems and left AMA. His breathing became a little worse yesterday and then acutely worse tonight. Just prior to arrival at the emergency Department EMS reported that he became unresponsive. On arrival here in the emergency department the patient was unresponsive with agonal respirations. On examination patient is a well-developed well-nourished male unresponsive with severe respiratory distress with slow agonal respirations. Markedly decreased breath sounds. Heart is tachycardic and regular. We immediately started bagging the patient with [id number] and improved his oxygen saturation to 98%. Heart rate decreased to about 120s. IV was established and patient was intubated orally by Dr. Maddox. Patient received etomidate 20 mg just prior to the intubation and then also received rocuronium 50 mg after the intubation. Patient was also started on propofol infusion for sedation. On the initial post intubation x-ray the tube was in the trachea above the tip was riding very high. The tube was then advanced 4 cm and repeat x-ray showed good tube placement. There appears to be some right lower lobe infiltrate although this could be fibrosis. Blood cultures were obtained and antibiotics initiated. At shift change patient is signed out to the oncoming dayshift team, Dr. Suarez, Dr. Hunt, and Dr. Samano.
[2017-11-06 07:41] LABS: Calcium 8.8 mg/dL (8.6-10.3); Magnesium 2.4 mg/dL (1.6-2.6); Troponin I 0.24 ng/mL (< 0.04)
[2017-11-06 07:43] LABS: Phosphorous 5.3 mg/dL (2.7-4.5)
[2017-11-06] MEDS: 0.9 % Sodium Chloride 1,000 ML IVC SCH ×2 (07:51→08:44)
[2017-11-06 07:59] LABS: ABG Base Excess -2 mEq/L (-2 to 3); ABG HCO3 31 mEq/L (21-27); ABG Oxygen Saturation 98 % (95-98); ABG PCO2 90 mmHg (35-45); ABG PH 7.14 pH Units (7.32-7.45); ABG PO2 154 mmHg (85-104); ABG TCO2 33 mEq/L (20-26); Blood Gas Modality VC; Blood Gas PEEP 5 cm H2O; Blood Gas Respiration Rate 18; Blood Gas VT 500 cc
[2017-11-06 08:02] LABS: Bilirubin,Urine Negative (Negative); Blood,Urine Negative (Negative); Clarity,Urine Clear (Clear); Color,Urine Yellow (Yellow); Glucose,Urine (UA) Normal (Normal); Ketones,Urine Negative (Negative); Leukocyte Esterase,Urine Negative (Negative); Nitrite,Urine Negative (Negative); PH,Urine 5.5 pH Units (5.0-8.0); Protein,Urine 30 mg/dL (Neg-Trace); Urobilinogen,Urine Normal (Normal)
[2017-11-06] MEDS ORDERED: *HR* FentaNYL (PF) 100 MCG/2 ML VIAL IVP ONE (08:02)
[2017-11-06 08:04] LABS: Bacteria,Urine None Seen per hpf (None-Few); Hyaline Casts,Urine None Seen per lpf (None-Few); RBC,Urine 0-3 per hpf (0-3); Squamous Epithelial Cell,Urine Many per lpf (None-Few); WBC,Urine 0-3 per hpf (0-3)
--- NOTE | 2017-11-06 09:00 | Emergency Department Note ---
START Narrative - START START: I did see the patient and examined him and the patient does have an ABG shows respiratory acidosis so the rate is increased from 18 and is increased to 22 and this will be rechecked. Patient will be admitted to the intensive care unit. Patient's blood pressure is now in the 120s was initially was hypertensive. His propofol had been increased. Old records show that he does have a ejection fraction of 20% with the patient is getting fluid based on the right diagnoses pneumonia. Recent CTA was negative for pulmonary embolism so this will not be repeated. This was discussed with Dr. Pérez from the intensive care unit. I examined this patient and my medical decision-making was reviewed with the SEWING MACHINE OPERATOR ZIPPER/PA/Advanced Practice Nurse/Resident Physician. I agree with the documented findings, disposition and treatment plan as described except to the extent set forth below. 0900 Critical care time: 45 minutes which were spent with the patient on a ventilator with hypoxemia initially significantly elevated blood pressure and then hypotension, sepsis, pneumonia and ventilator management.
--- NOTE | 2017-11-06 09:01 | Emergency Department Note ---
Disposition Clinical Impression: Acute respiratory failure with hypercapnia, Elevated troponin Pneumonia Qualifiers: Pneumonia type: due to unspecified organism Laterality: right Lung location: lower lobe of lung Qualified Code(s): J18.1 - Lobar pneumonia, unspecified organism Sepsis Qualifiers: Sepsis type: sepsis due to unspecified organism Qualified Code(s): A41.9 - Sepsis, unspecified organism Disposition: Admitted As Inpatient Condition: Critical [facility]errals: [facility] [Primary Care Provider] - Forms: ED Satisfaction Letter Time of Disposition: 09:01 General Adult HPI - General Chief complaint: ED Shortness of Breath/Dyspnea Stated complaint: VINAY Time Seen by Provider: 11/06/17 06:36 Source: patient Mode of arrival: EMS Limitations: altered mental status Nursing Notes Reviewed: Yes Vital Signs Reviewed: Yes - History of Present Illness Pain Scale: 0 - Related Data Home Medications Medication Instructions Recorded Confirmed Albuterol Sulfate [Albuterol 2 puff IH Q6HR PRN 09/25/17 11/06/17 Inhaler] Budesonide/Formoterol 160/4.5 1 puff IH BIDR 09/25/17 11/06/17 [Symbicort 160/4.5] Tamsulosin HCl [Flomax] 0.4 mg PO DAILY 09/25/17 11/06/17 hydroCHLOROthiazide 25 mg PO DAILY 09/25/17 11/06/17 [Hydrochlorothiazide] Ipratropium/Albuterol Neb [Duoneb] 3 ml IH BID PRN 11/03/17 11/06/17 Loratadine [Allergy Relief] 10 mg PO DAILY PRN 11/03/17 11/06/17 Oxygen 2 l NS CONT 11/03/17 11/06/17 traZODone [TraZODone] 50 mg PO HS PRN 11/03/17 11/06/17 Allergies Allergy/AdvReac Type Severity Reaction Status Date / Time No Known Allergies Allergy Verified 08/09/15 23:34 Past Medical History - Past Medical History Medical history: Reports: COPD, GERD, hypertension, other Surgical history: Reports: non-contributory, other Psychiatric history: Reports: no psych history - Social History Smoking Status: Current every day smoker Smokeless Tobacco Status: No Alcohol use: Reports: none Drug use: Reports: none, other Physical Exam - General Limitations: altered mental status General appearance: other (Unresponsive with agonal breathing.) Course Course Narrative: Assumed care of the patient at 0700. Patient with acute respiratory failure worsening over the last day. Patient had been admitted a couple days ago and had been treated with pneumonia, and STEMI, sepsis. Patient had left AGAINST MEDICAL ADVICE. He then decompensated this morning around 4 AM. When he arrived, he had agonal breath sounds and was intubated by Dr. Carlton. Critical care workup was pending. ABG showed respiratory acidosis. Upon looking at his prior records, patient had a heart catheter done while he was in the hospital 2 days ago which showed nonischemic cardiomyopathy with an ejection fraction of 20 %. Patient had a CTA of the chest at that time as well that showed signs of atypical pneumonia. Patient currently being covered with broad-spectrum antibiotics with vancomycin, Zosyn, Levaquin. He is receiving a 30 mL/kg bolus of IV fluids. He is on a propofol drip. Discussed with furniture salesperson who has accepted patient for admission. Vital Signs Temperature 98.8 F 11/06/17 06:34 Pulse Rate 125 11/06/17 06:34 Respiratory Rate 12 11/06/17 06:34 Blood Pressure 155/121 11/06/17 06:34 O2 Sat by Pulse Oximetry 100 11/06/17 06:34 Temperature 98.8 F 11/06/17 06:34 Pulse Rate 99 11/06/17 08:50 Respiratory Rate 18 11/06/17 08:50 Blood Pressure 93/69 11/06/17 08:50 O2 Sat by Pulse Oximetry 99 11/06/17 08:50 Oxygen Delivery Oxygen Delivery Ventilator Medical Decision Making - Medical Records Medical records reviewed: Yes I reviewed the patient's medical records. - Lab Data Lab results reviewed: Yes I reviewed the patient's lab results. Result diagrams: 11/06/17 06:40 11/06/17 06:40 Lab Results 11/06/17 11/06/17 11/06/17 Range/Units 06:40 06:40 06:40 WBC 27.0 H D (4.3-11.1) K/mcL RBC 5.26 (4.19-5.50) M/mcL Hgb 14.9 (12.9-16.9) g/dL Hct 49.0 (37.5-50.1) % MCV 93.2 (83.0-100.0) fL MCH 28.3 (28.0-33.3) pg MCHC 30.4 L (31.6-35.5) g/dL RDW 15.3 H (11.5-14.5) % Plt Count 326 (140-400) K/mcL MPV 11.5 (9.4-12.4) fL Immature Gran % 1.9 (0-4) % Seg Neutrophils % 66.1 % Lymphocytes % 21.8 % Monocytes % 9.6 % Eosinophils % 0.1 % Basophils % 0.5 % Neutrophils # 17.9 H (1.6-8.9) K/mcL Lymphocytes # 5.9 H (0.6-4.6) K/mcL Monocytes # 2.6 H (0.0-1.3) K/mcL Eosinophils # 0.0 (0.0-0.6) K/mcL Basophils # 0.1 (0.0-0.2) K/mcL Nucleated RBCs/100 WBC 0.1 H (0) /100 WBC Platelet Estimate Normal (Normal) Sample Site ABG pH (7.32-7.45) pH Units ABG pCO2 (35-45) mmHg ABG pO2 (85-104) mmHg ABG HCO3 (21-27) mEq/L ABG Total CO2 (20-26) mEq/L ABG O2 Saturation (95-98) % ABG Base Excess (-2 to 3) mEq/L VBG pH (7.32-7.42) pH Units VBG pCO2 (41-51) mmHg VBG pO2 (25-50) mmHg VBG HCO3 (21-27) mEq/L Respiration Rate O2 Delivery Device Blood Gas Modality Inspired O2 (1-15=lpm [id number]=%) Tidal Volume cc PEEP cm H2O Sodium 140 (136-145) mEq/L Potassium 5.0 (3.5-5.1) mEq/L Chloride 109 H (98-107) mEq/L Carbon Dioxide 26 (23-29) mEq/L BUN 44 H (6-20) mg/dL Creatinine 1.74 H (0.70-1.30) mg/dL Est GFR ( Amer) 51 L (> 60) Est GFR (Non-Af Amer) 42 L (> 60) BUN/Creatinine Ratio 25 (6-26) Glucose 264 H (70-105) mg/dL Calculated Osmolality 310 H (280-300) Lactic Acid 1.9 (0.5-2.2) mmol/L Calcium 8.8 (8.6-10.3) mg/dL Phosphorus 5.3 H (2.7-4.5) mg/dL Magnesium 2.4 (1.6-2.6) mg/dL Troponin I 0.24 H* (< 0.04) ng/mL B-Natriuretic Peptide (Less than 100) pg/mL Urine Color (Yellow) Urine Clarity (Clear) Urine pH (5.0-8.0) pH Units Ur Specific [place] (1.010-1.025) Urine Protein (Neg-Trace) mg/dL Urine Glucose (UA) (Normal) mg/dL Urine Ketones (Negative) mg/dL Urine Blood (Negative) Urine Nitrite (Negative) Urine Bilirubin (Negative) Urine Urobilinogen (Normal) mg/dL Ur Leukocyte Esterase (Negative) Urine Microscopic RBC (0-3) per hpf Urine Microscopic WBC (0-3) per hpf Ur Squamous Epith Cells (None-Few) per lpf Urine Bacteria (None-Few) per hpf Hyaline Casts (None-Few) per lpf Ur Culture Indicated? (NO) Person Notif of Crit 11/06/17 11/06/17 11/06/17 Range/Units 06:40 06:41 06:59 WBC (4.3-11.1) K/mcL RBC (4.19-5.50) M/mcL Hgb (12.9-16.9) g/dL Hct (37.5-50.1) % MCV (83.0-100.0) fL MCH (28.0-33.3) pg MCHC (31.6-35.5) g/dL RDW (11.5-14.5) % Plt Count (140-400) K/mcL MPV (9.4-12.4) fL Immature Gran % (0-4) % Seg Neutrophils % % Lymphocytes % % Monocytes % % Eosinophils % % Basophils % % Neutrophils # (1.6-8.9) K/mcL Lymphocytes # (0.6-4.6) K/mcL Monocytes # (0.0-1.3) K/mcL Eosinophils # (0.0-0.6) K/mcL Basophils # (0.0-0.2) K/mcL Nucleated RBCs/100 WBC (0) /100 WBC Platelet Estimate (Normal) Sample Site ABG pH (7.32-7.45) pH Units ABG pCO2 (35-45) mmHg ABG pO2 (85-104) mmHg ABG HCO3 (21-27) mEq/L ABG Total CO2 (20-26) mEq/L ABG O2 Saturation (95-98) % ABG Base Excess (-2 to 3) mEq/L VBG pH 7.13 L* (7.32-7.42) pH Units VBG pCO2 85 H* (41-51) mmHg VBG pO2 55 H (25-50) mmHg VBG HCO3 28 H (21-27) mEq/L Respiration Rate O2 Delivery Device Blood Gas Modality Inspired O2 (1-15=lpm [id number]=%) Tidal Volume cc PEEP cm H2O Sodium (136-145) mEq/L Potassium (3.5-5.1) mEq/L Chloride (98-107) mEq/L Carbon Dioxide (23-29) mEq/L BUN (6-20) mg/dL Creatinine (0.70-1.30) mg/dL Est GFR ( Amer) (> 60) Est GFR (Non-Af Amer) (> 60) BUN/Creatinine Ratio (6-26) Glucose (70-105) mg/dL Calculated Osmolality (280-300) Lactic Acid (0.5-2.2) mmol/L Calcium (8.6-10.3) mg/dL Phosphorus (2.7-4.5) mg/dL Magnesium (1.6-2.6) mg/dL Troponin I (< 0.04) ng/mL B-Natriuretic Peptide 2705 H (Less than 100) pg/mL Urine Color Yellow (Yellow) Urine Clarity Clear (Clear) Urine pH 5.5 (5.0-8.0) pH Units Ur Specific [place] 1.030 H (1.010-1.025) Urine Protein 30 H (Neg-Trace) mg/dL Urine Glucose (UA) Normal (Normal) mg/dL Urine Ketones Negative (Negative) mg/dL Urine Blood Negative (Negative) Urine Nitrite Negative (Negative) Urine Bilirubin Negative (Negative) Urine Urobilinogen Normal (Normal) mg/dL Ur Leukocyte Esterase Negative (Negative) Urine Microscopic RBC 0-3 (0-3) per hpf Urine Microscopic WBC 0-3 (0-3) per hpf Ur Squamous Epith Cells Many H (None-Few) per lpf Urine Bacteria None Seen (None-Few) per hpf Hyaline Casts None Seen (None-Few) per lpf Ur Culture Indicated? NO (NO) Person Notif of Crit ER/DR CARLTON 11/06/17 11/06/17 Range/Units 07:16 07:55 WBC (4.3-11.1) K/mcL RBC (4.19-5.50) M/mcL Hgb (12.9-16.9) g/dL Hct (37.5-50.1) % MCV (83.0-100.0) fL MCH (28.0-33.3) pg MCHC (31.6-35.5) g/dL RDW (11.5-14.5) % Plt Count (140-400) K/mcL MPV (9.4-12.4) fL Immature Gran % (0-4) % Seg Neutrophils % % Lymphocytes % % Monocytes % % Eosinophils % % Basophils % % Neutrophils # (1.6-8.9) K/mcL Lymphocytes # (0.6-4.6) K/mcL Monocytes # (0.0-1.3) K/mcL Eosinophils # (0.0-0.6) K/mcL Basophils # (0.0-0.2) K/mcL Nucleated RBCs/100 WBC (0) /100 WBC Platelet Estimate (Normal) Sample Site R Radial ABG pH 7.14 L* (7.32-7.45) pH Units ABG pCO2 90 H* (35-45) mmHg ABG pO2 154 H (85-104) mmHg ABG HCO3 31 H (21-27) mEq/L ABG Total CO2 33 H (20-26) mEq/L ABG O2 Saturation 98 (95-98) % ABG Base Excess -2 (-2 to 3) mEq/L VBG pH (7.32-7.42) pH Units VBG pCO2 (41-51) mmHg VBG pO2 (25-50) mmHg VBG HCO3 (21-27) mEq/L Respiration Rate 18 O2 Delivery Device Adult Vent Blood Gas Modality VC Inspired O2 100.0 (1-15=lpm [id number]=%) Tidal Volume 500 cc PEEP 5 cm H2O Sodium (136-145) mEq/L Potassium (3.5-5.1) mEq/L Chloride (98-107) mEq/L Carbon Dioxide (23-29) mEq/L BUN (6-20) mg/dL Creatinine (0.70-1.30) mg/dL Est GFR ( Amer) (> 60) Est GFR (Non-Af Amer) (> 60) BUN/Creatinine Ratio (6-26) Glucose (70-105) mg/dL Calculated Osmolality (280-300) Lactic Acid 1.4 (0.5-2.2) mmol/L Calcium (8.6-10.3) mg/dL Phosphorus (2.7-4.5) mg/dL Magnesium (1.6-2.6) mg/dL Troponin I (< 0.04) ng/mL B-Natriuretic Peptide (Less than 100) pg/mL Urine Color (Yellow) Urine Clarity (Clear) Urine pH (5.0-8.0) pH Units Ur Specific [place] (1.010-1.025) Urine Protein (Neg-Trace) mg/dL Urine Glucose (UA) (Normal) mg/dL Urine Ketones (Negative) mg/dL Urine Blood (Negative) Urine Nitrite (Negative) Urine Bilirubin (Negative) Urine Urobilinogen (Normal) mg/dL Ur Leukocyte Esterase (Negative) Urine Microscopic RBC (0-3) per hpf Urine Microscopic WBC (0-3) per hpf Ur Squamous Epith Cells (None-Few) per lpf Urine Bacteria (None-Few) per hpf Hyaline Casts (None-Few) per lpf Ur Culture Indicated? (NO) Person Notif of Crit - Radiology Data Radiology results reviewed: Yes I reviewed the patient's radiology results. Chest X-Ray 11/06/17 06:36 IMPRESSION: Diffuse increased interstitial changes seen, more so on the right with minimal interval change from the previous examination. Changes may be related to interstitial edema or atypical infection. The 2nd film on this examination shows advancement of the endotracheal tube from 12 to 6.3 cm above the doretha. D/ / Paul Andersen MD / Paul Andersen MD Interpreting Provider: Paul Andersen MD Head CT 11/06/17 06:38 IMPRESSION: No acute intracranial abnormality. Evaluation is mildly limited due to motion artifact and prominent beam hardening artifact. Left maxillary sinusitis is noted. D/ / 11/06/2017 08:13:26 Paul Mejia MD / [facility] Interpreting Provider: Paul Mejia MD
[2017-11-06] MEDS ORDERED: *HR* Rocuronium Bromide 50 MG/5 ML VIAL IVC ONE (09:04)
[2017-11-06 10:45] LABS: VBG HCO3 27 mEq/L (21-27); VBG PCO2 52 mmHg (41-51); VBG PH 7.32 pH Units (7.32-7.42); VBG PO2 185 mmHg (25-50)
--- NOTE | 2017-11-06 11:45 | Pulmonology History & Physical ---
<Javier Pérez - Last Filed: 11/06/17 16:44> Date of Encounter: 11/06/17 Time of Encounter: 11:44 Assessment and Plan (1) Acute respiratory failure with hypercapnia Current visit: Yes Status: Acute presented unresponsive with respiratory failure requiring intubation history of CHF and COPD recent hospitalization for pneumonia daily ABGs placed on empiric antibiotics with scheduled bronchodilators and steroids (2) Sepsis Current visit: Yes Status: Acute patient with tachycardia and significant leukocytosis with likely source respiratory patient is intubated blood cultures pending empiric antibiotics started for HCAP given recent hospitalization Vancomycin, Zosyn, Levaquin he is not hypotensive requiring fluid resuscitation lactate 1.4 from initial 1.9 Qualifiers: Sepsis type: sepsis due to unspecified organism Qualified Code(s): A41.9 - Sepsis, unspecified organism (3) Acute systolic (congestive) heart failure Current visit: Yes Status: Acute recent ECHO 11/03 - 30-35% global LV systolic dysfunction with normal right ventricular size - newly reduced LV systolic function noted from prior ECHO 09/25/2017 BNP elevated 2705 (4) Pneumonia Current visit: Yes Status: Acute empirical coverage with Vanc, Levaquin, and Zosyn due to recent hospitalization blood cultures pending CTA Chest 11/03 on prior admission - right greater than left basilar airspace disease with right effusion, nonspecific possibly pneumonia Qualifiers: Pneumonia type: due to unspecified organism Laterality: right Lung location: lower lobe of lung Qualified Code(s): J18.1 - Lobar pneumonia, unspecified organism (5) COPD (chronic obstructive pulmonary disease) Current visit: Yes Status: Chronic history of COPD, respiratory failure likely secondary to pneumonia with component of COPD and CHF placed on scheduled duonebs and steroids continue to monitor Qualifiers: COPD type: unspecified COPD Qualified Code(s): J44.9 - Chronic obstructive pulmonary disease, unspecified (6) NSTEMI (non-ST elevated myocardial infarction) Current visit: Yes Status: Acute EKG with ischemic changes Trop 0.27 continue to trend recent admission with [facility] 11/04 - angiographically normal coronary arteries with severe LV dysfunction EF 20% (7) Nonischemic cardiomyopathy Current visit: Yes Status: Acute recent [facility] 11/04 - coronary arteries are angiographically normal with severe LV dysfunction EF 20% cardio at that time recommended aggressive risk factor modification with guideline directed CHF medical therapy, if after 3 months EF <35% consider ICD or BiV ICD (8) DVT prophylaxis Current visit: Yes Status: Resolved Heparin History of Present Illness Chief complaint: respiratory failure, sepsis HPI: Mr. Brink is a 51 year old male with past medical history of COPD and hypertension who is admitted to the intensive care unit at [facility] for respiratory failure requiring intubation likely secondary to sepsis and pneumonia. Patient is currently intubated and sedated and cannot provide further history. History was obtained through emergency department documentation. Patient reportedly presented to the emergency department unresponsive. Per the patient's family he has been experiencing shortness of breath. He was recently admitted to the hospital for concern of NSTEMI, CHF, pneumonia, and sepsis. Patient left against medical advice on 11/04/2017 and since then has been having worsening symptoms. Patient arrived to the emergency department and was immediately intubated. Chest x-ray showed increased diffuse interstitial changes R > L. he has a leukocytosis of 27. Arterial blood gas 7.14, CO2 90, 02 154, bicarb 31. His troponin was noted to be elevated 0.24, suspect this is likely demand ischemia. EKG showed sinus tachycardia without ischemic changes. His BNP elevated 2705. He also presents with acute kidney injury creatinine 1.74 significantly higher than his baseline. He received empiric antibiotics in the emergency department as well as 2L fluid boluses of normal saline. Patient is sedated on propofol. Past Med Surg Social Fam HX - Past Medical History Source: unable to obtain, old records reviewed Medical history: COPD, GERD, hypertension, other Psychiatric history: no psych history - Past Surgical History Surgical History: non-contributory, other - Social History Smoking Status: Current every day smoker Smokeless Tobacco Status: No Alcohol use: none Drug use: none, other - Family History Mother Living Status: Still Living Father Living Status: Hx Family Cardiac Disorders: Yes (CHF) Medications and Allergies Albuterol Sulfate [Albuterol Inhaler] 2 puff IH Q6HR PRN 09/25/17 [History] Budesonide/Formoterol 160/4.5 [Symbicort 160/4.5] 1 puff IH BIDR 09/25/17 [ History] Tamsulosin HCl [Flomax] 0.4 mg PO DAILY 09/25/17 [History] hydroCHLOROthiazide [Hydrochlorothiazide] 25 mg PO DAILY 09/25/17 [History] Ipratropium/Albuterol Neb [Duoneb] 3 ml IH BID PRN 11/03/17 [History] Loratadine [Allergy Relief] 10 mg PO DAILY PRN 11/03/17 [History] Oxygen 2 l NS CONT 11/03/17 [History] traZODone [TraZODone] 50 mg PO HS PRN 11/03/17 [History] 3 Allergy/AdvReac Type Severity Reaction Status Date / Time No Known Allergies Allergy Verified 08/09/15 23:34 ROS unobtainable: due to endotracheal tube All Systems: The remainder of the systems were reviewed and are negative Physical Examination General appearance: no acute distress, other (Sedated and mechanically ventilated) Eyes: nonicteric ENT: other (Endotracheal intubation) Neck: supple Effort: other (Mechanically ventilated) Auscultation: bilateral: diminished breath sounds (R > L) Cardiovascular: regular rate and rhythm Gastrointestinal: normoactive bowel sounds, soft, non-tender, non-distended Integumentary: normal Extremities: no cyanosis, no edema, no clubbing, no ischemia or petechiae Musculoskeletal: no deformities unable to assess due to mental status Results - Laboratory Findings CBC and BMP: 11/06/17 06:40 11/06/17 06:40 ABG ABG pH 7.14 pH Units (7.32-7.45) L* 11/06/17 07:55 ABG pCO2 90 mmHg (35-45) H* 11/06/17 07:55 ABG pO2 154 mmHg (85-104) H 11/06/17 07:55 ABG O2 Saturation 98 % (95-98) 11/06/17 07:55 Abnormal lab findings: Abnormal lab results WBC 27.0 K/mcL (4.3-11.1) H D 11/06/17 06:40 MCHC 30.4 g/dL (31.6-35.5) L 11/06/17 06:40 RDW 15.3 % (11.5-14.5) H 11/06/17 06:40 Neutrophils # 17.9 K/mcL (1.6-8.9) H 11/06/17 06:40 Lymphocytes # 5.9 K/mcL (0.6-4.6) H 11/06/17 06:40 Monocytes # 2.6 K/mcL (0.0-1.3) H 11/06/17 06:40 Nucleated RBCs/100 WBC 0.1 /100 WBC (0) H 11/06/17 06:40 ABG pH 7.14 pH Units (7.32-7.45) L* 11/06/17 07:55 ABG pCO2 90 mmHg (35-45) H* 11/06/17 07:55 ABG pO2 154 mmHg (85-104) H 11/06/17 07:55 ABG HCO3 31 mEq/L (21-27) H 11/06/17 07:55 ABG Total CO2 33 mEq/L (20-26) H 11/06/17 07:55 VBG pCO2 52 mmHg (41-51) H 11/06/17 10:42 VBG pO2 185 mmHg (25-50) H 11/06/17 10:42 Chloride 109 mEq/L (98-107) H 11/06/17 06:40 BUN 44 mg/dL (6-20) H 11/06/17 06:40 Creatinine 1.74 mg/dL (0.70-1.30) H 11/06/17 06:40 Est GFR ( Amer) 51 (> 60) L 11/06/17 06:40 Est GFR (Non-Af Amer) 42 (> 60) L 11/06/17 06:40 Glucose 264 mg/dL (70-105) H 11/06/17 06:40 Calculated Osmolality 310 (280-300) H 11/06/17 06:40 Phosphorus 5.3 mg/dL (2.7-4.5) H 11/06/17 06:40 Troponin I 0.24 ng/mL (< 0.04) H* 11/06/17 06:40 B-Natriuretic Peptide 2705 pg/mL (Less than 100) H 11/06/17 06:40 Ur Specific Darwin 1.030 (1.010-1.025) H 11/06/17 06:41 Urine Protein 30 mg/dL (Neg-Trace) H 11/06/17 06:41 Ur Squamous Epith Cells Many per lpf (None-Few) H 11/06/17 06:41 - Diagnostic Findings Chest x-ray: report reviewed, image reviewed Additional studies: Head CT 11/06/17 06:38 IMPRESSION: No acute intracranial abnormality. Evaluation is mildly limited due to motion artifact and prominent beam hardening artifact. Left maxillary sinusitis is noted. D/ / 11/06/2017 08:13:26 Paul Mejia MD / crissy Interpreting Provider: Paul Mejia MD Chest X-Ray 11/06/17 09:09 IMPRESSION: 1. Endotracheal tube has been advanced, now positioned approximately 7 cm above the doretha. 2. NG tube present with side port and tip in the body of the stomach. 3. Re-demonstration of increased interstitial opacities bilaterally, along with stable asymmetric airspace opacity at the right base. These findings are superimposed on emphysema. D/ / 11/06/2017 09:25:45 Paul Mejia MD / Flavia Davalos Interpreting Provider: Paul Mejia MD <Mary Ellen Christensen S - Last Filed: 11/06/17 23:16> Date of Encounter: 11/06/17 History of Present Illness HPI: Mr. Brink is a 51 year old male All Systems: The remainder of the systems were reviewed and are negative Physical Examination Vital Signs: Vital Signs, Last 4 Hours Pulse Resp BP Pulse Ox 11/06/17 22:00 85 22 97/72 95 11/06/17 21:55 22 97 11/06/17 21:14 98 11/06/17 21:00 89 22 91/71 97 11/06/17 20:00 93 22 98/73 96 11/06/17 19:22 28 95 Results - Laboratory Findings CBC and BMP: 11/06/17 06:40 11/06/17 06:40 ABG ABG pH 7.34 pH Units (7.32-7.45) 11/06/17 16:21 ABG pCO2 53 mmHg (35-45) H 11/06/17 16:21 ABG pO2 90 mmHg (85-104) 11/06/17 16:21 ABG O2 Saturation 96 % (95-98) 11/06/17 16:21 Abnormal lab findings: Abnormal lab results WBC 27.0 K/mcL (4.3-11.1) H D 11/06/17 06:40 MCHC 30.4 g/dL (31.6-35.5) L 11/06/17 06:40 RDW 15.3 % (11.5-14.5) H 11/06/17 06:40 Neutrophils # 17.9 K/mcL (1.6-8.9) H 11/06/17 06:40 Lymphocytes # 5.9 K/mcL (0.6-4.6) H 11/06/17 06:40 Monocytes # 2.6 K/mcL (0.0-1.3) H 11/06/17 06:40 Nucleated RBCs/100 WBC 0.1 /100 WBC (0) H 11/06/17 06:40 ABG pCO2 53 mmHg (35-45) H 11/06/17 16:21 ABG HCO3 29 mEq/L (21-27) H 11/06/17 16:21 ABG Total CO2 30 mEq/L (20-26) H 11/06/17 16:21 VBG pCO2 52 mmHg (41-51) H 11/06/17 10:42 VBG pO2 185 mmHg (25-50) H 11/06/17 10:42 Chloride 109 mEq/L (98-107) H 11/06/17 06:40 BUN 44 mg/dL (6-20) H 11/06/17 06:40 Creatinine 1.74 mg/dL (0.70-1.30) H 11/06/17 06:40 Est GFR ( Amer) 51 (> 60) L 11/06/17 06:40 Est GFR (Non-Af Amer) 42 (> 60) L 11/06/17 06:40 Glucose 264 mg/dL (70-105) H 11/06/17 06:40 POC Glucose 90 mg/dL (68-89) H 11/06/17 18:56 Calculated Osmolality 310 (280-300) H 11/06/17 06:40 Phosphorus 5.3 mg/dL (2.7-4.5) H 11/06/17 06:40 Troponin I 0.19 ng/mL (< 0.04) H* 11/06/17 22:07 B-Natriuretic Peptide 2705 pg/mL (Less than 100) H 11/06/17 06:40 Ur Specific Darwin 1.030 (1.010-1.025) H 11/06/17 06:41 Urine Protein 30 mg/dL (Neg-Trace) H 11/06/17 06:41 Ur Squamous Epith Cells Many per lpf (None-Few) H 11/06/17 06:41 Ur Amphetamines Screen Positive ng/mL (Acqdid=2659) H 11/06/17 22:09 U Benzodiazepines Scrn Positive ng/mL (Xiyouj=323) H 11/06/17 22:09 - Attending Attestation I saw and evaluated this patient and my medical decision-making was reviewed with the Resident Physician. I agree with the documented findings, disposition and treatment plan as described except to the extent set forth below. We independently had [id number] contact with the patient I spent 40 minutes of Critical Care time with this patient. It involved decision making of high complexity to assess, manipulate, and support vital organ system failure and/or to prevent further life threatening deterioration of the patient's condition. The time involved in the performance of separately reportable procedures was not counted toward critical care time. Patient seen and examined at bedside Labs, radiology, chart personally reviewed. OPERATING ROOM REGISTERED NURSE:Patient is sedated on exam he was not following commands . Pulm: Patient has acute on chronic hypoxic and hypercarbic respiratory failure secondary to COPD and CHF exacerbation to continue bronchodilators and steroids . Repeat ABG was acceptable Cards: Hemodynamiclly stable , NSTEMI will trend troponins . Acute on systolic heart failure , ECHO showed non ischemic cardiomyopathy FEN-GI:Nutrition per dietary Renal: Labs and output reviewed ID: Patient has possible intraabdominal source to cover with broad spectrum antibiotics Heme/Onc: Labs reviewed Endo: Glucose Monitored Integ/MSK: Skin Care per routine ICU Nursing Protocol to prevent ulcers. Lines: All lines examined without evidence of infection : Dispo: Critically ill CODE: Full Code
[2017-11-06] MEDS ORDERED: Propofol 500 MG/50 ML INFUS..BTL ONE (12:08)
[2017-11-06] MEDS ORDERED: Lacri-Lube 3.5 GM TUBE BOTH EYES PRN (13:13)
[2017-11-06] MEDS ORDERED: Dextrose Gel 15 GM/37.5 ML TUBE PO PRN ×2 (13:13)
[2017-11-06] MEDS ORDERED: D5% in Water 1,000 ML IVC PRN (13:13)
[2017-11-06] MEDS ORDERED: Naloxone 0.4 MG/ML INJ IVP PRN (13:13)
[2017-11-06] MEDS ORDERED: Potassium Phosphate 44 MEQ in 0.9 % Sodium Chloride 250 ML IVPB PRN (13:13)
[2017-11-06] MEDS ORDERED: *HR* Dextrose 50 % in Water (Syg) 50 ML SYRINGE IVP PRN (13:13)
--- NOTE | 2017-11-06 14:57 | Electrocardiograph Report ---
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
[2017-11-06 16:23] LABS: ABG Base Excess 2 mEq/L (-2 to 3); ABG HCO3 29 mEq/L (21-27); ABG Oxygen Saturation 96 % (95-98); ABG PCO2 53 mmHg (35-45); ABG PH 7.34 pH Units (7.32-7.45); ABG PO2 90 mmHg (85-104); ABG TCO2 30 mEq/L (20-26); Blood Gas Modality VC; Blood Gas PEEP 5 cm H2O; Blood Gas Respiration Rate 22; Blood Gas VT 500 cc
[2017-11-06] MEDS ORDERED: Ipratropium/Albuterol Neb 3 ML IH PRN (16:26)
[2017-11-06] MEDS ORDERED: Ipratropium/Albuterol Neb 3 ML ONE (16:48)
[2017-11-06] MEDS: Ipratropium/Albuterol Neb 3 ML IH SCH ×2 (16:51→23:44)
[2017-11-06] MEDS ORDERED: Aspirin 325 MG TABLET PO ONE (17:31)
[2017-11-06] MEDS: Lacri-Lube 3.5 GM TUBE BOTH EYES SCH ×3 (18:56→23:53)
[2017-11-06] MEDS: MethylPREDNISolone 40 MG/ML VIAL IVP SCH ×2 (18:56→23:48)
[2017-11-06] MEDS: *HR* Heparin 5,000 UNIT/ML VIAL SQ SCH (18:56)
[2017-11-06] MEDS: Insulin LISPRO 300 UNITS/3 ML VIAL SQ SCH ×2 (18:57→23:53)
[2017-11-06] MEDS: Chlorhexidine Rinse 15 ML MOUTHWASH MM SCH (19:56)
[2017-11-06 22:48] LABS: Amphetamine Screen,Urine Positive ng/mL (Cutoff=1000); Barbiturate Screen,Urine Negative ng/mL (Cutoff=200); Benzodiazepines Screen,Urine Positive ng/mL (Cutoff=200); Cannabinoid Screen,Urine Negative ng/mL (Cutoff = 50); Cocaine Screen,Urine Negative ng/mL (Cutoff= 300); Opiate Screen,Urine Negative ng/mL (Cutoff=300); Phencyclidine Screen,Urine Negative ng/mL (Cutoff=25)
[2017-11-06] MEDS: Piperacillin/Tazobactam 3.375 GM in 0.9 % Sodium Chloride Mini Bag 100 ML IVPB SCH (23:48)
[2017-11-07] MEDS: Propofol 500 MG/50 ML INFUS..BTL IVC SCH ×3 (02:07→07:30)
[2017-11-07] MEDS: Lacri-Lube 3.5 GM TUBE BOTH EYES SCH ×6 (04:04→22:55)
[2017-11-07] MEDS: Ipratropium/Albuterol Neb 3 ML IH SCH ×4 (04:08→22:35)
[2017-11-07 04:44] LABS: ABG Base Excess 2 mEq/L (-2 to 3); ABG HCO3 29 mEq/L (21-27); ABG Oxygen Saturation 96 % (95-98); ABG PCO2 57 mmHg (35-45); ABG PH 7.32 pH Units (7.32-7.45); ABG PO2 93 mmHg (85-104); ABG TCO2 31 mEq/L (20-26); Blood Gas Modality VC; Blood Gas PEEP 5 cm H2O; Blood Gas Respiration Rate 22; Blood Gas VT 500 cc
[2017-11-07] MEDS: *HR* Heparin 5,000 UNIT/ML VIAL SQ SCH ×2 (06:09→17:43)
[2017-11-07] MEDS: MethylPREDNISolone 40 MG/ML VIAL IVP SCH ×4 (06:09→23:51)
[2017-11-07] MEDS: Insulin LISPRO 300 UNITS/3 ML VIAL SQ SCH ×4 (06:16→23:51)
[2017-11-07 06:27] LABS: Basophils % 0.2 %; Hematocrit 41.9 % (37.5-50.1); Lymphocytes # 0.8 K/mcL (0.6-4.6); Lymphocytes % 4.9 %; Mean Corpuscular HGB Conc 31.3 g/dL (31.6-35.5); Mean Corpuscular Hemoglobin 28.2 pg (28.0-33.3); Mean Corpuscular Volume 90.3 fL (83.0-100.0); Mean Platelet Volume 11.7 fL (9.4-12.4); Monocytes # 0.7 K/mcL (0.0-1.3); Monocytes % 4.3 %; Neutrophils # 14.5 K/mcL (1.6-8.9); Platelet Count 154 K/mcL (140-400); Red Blood Count 4.64 M/mcL (4.19-5.50); Red Cell Distribution Width 15.4 % (11.5-14.5); Segmented Neutrophils % 89.6 %
[2017-11-07 06:34] LABS: Hemoglobin 13.1 g/dL (12.9-16.9)
[2017-11-07 06:43] LABS: BUN/Creatinine Ratio 29 (6-26); Blood Urea Nitrogen 38 mg/dL (6-20); Calcium 8.4 mg/dL (8.6-10.3); Carbon Dioxide 28 mEq/L (23-29); Chloride 112 mEq/L (98-107); Glucose 138 mg/dL (70-105); Osmolality,Calculated 307 (280-300); Potassium 4.4 mEq/L (3.5-5.1); Sodium 143 mEq/L (136-145); eGFR For African Americans > 60 (> 60); eGFR For Non-African Americans 59 (> 60)
--- NOTE | 2017-11-07 07:59 | Pulmonology Progress Note ---
Addendum entered and electronically signed by Javier Pérez DO 11/07/17 14:20: ADDENDUM: Passed SBT while off sedation, following commands with good weaning parameters EXTUBATED 1420 to [place] Cardiology saw patient and recommended diuresis and beta-kelin, addition of ACEi when BP tolerates Original Note: <Javier Pérez - Last Filed: 11/07/17 11:54> Date of Encounter: 11/07/17 Time of Encounter: 07:59 Assessment and Plan (1) Acute on chronic respiratory failure with hypoxia and hypercapnia Current Visit: Yes Status: Acute presented unresponsive with respiratory failure requiring intubation likely secondary to COPD and CHF exacerbation recent hospitalization for pneumonia daily ABGs placed on empiric antibiotics with scheduled bronchodilators and steroids will attempt CPAP today change sedation to Precedex with Fentanyl given cardiac history (2) Sepsis Current Visit: Yes Status: Acute patient with tachycardia and significant leukocytosis - leukocytosis improving without fevers suspect more COPD and CHF component patient remains intubated blood cultures (11/06) x2 - NGTD sputum culture pending empiric antibiotics started for HCAP given recent hospitalization Vancomycin, Zosyn, Levaquin - plan to de-escalate in next 48-72 hours he is not hypotensive requiring fluid resuscitation lactate 1.4 from initial 1.9 Qualifiers: Sepsis type: sepsis due to unspecified organism Qualified Code(s): A41.9 - Sepsis, unspecified organism (3) COPD (chronic obstructive pulmonary disease) Current Visit: Yes Status: Chronic continue scheduled duonebs and steroids Qualifiers: COPD type: unspecified COPD Qualified Code(s): J44.9 - Chronic obstructive pulmonary disease, unspecified (4) Acute systolic (congestive) heart failure Current Visit: Yes Status: Acute recent ECHO 11/03 - 30-35% global LV systolic dysfunction with normal right ventricular size - newly reduced LV systolic function noted from prior ECHO 09/25/2017 BNP elevated 2705 fluid resuscitated in ED Lasix x1 cardiology consulted, recs appreciated (5) Pneumonia Current Visit: Yes Status: Acute empirical coverage with Vanc, Levaquin, and Zosyn due to recent hospitalization - plan for de-escalation blood cultures NGTD sputum culture pending CTA Chest 11/03 on prior admission - right greater than left basilar airspace disease with right effusion, nonspecific possibly pneumonia Qualifiers: Pneumonia type: due to unspecified organism Laterality: right Lung location: lower lobe of lung Qualified Code(s): J18.1 - Lobar pneumonia, unspecified organism (6) NSTEMI (non-ST elevated myocardial infarction) Current Visit: Yes Status: Acute EKG without ischemic changes Trop peak at 0.3, downtrended to 0.19 recent admission with [facility] 11/04 - angiographically normal coronary arteries with severe LV dysfunction EF 20% cardiology consulted, recs appreciated (7) Nonischemic cardiomyopathy Current Visit: Yes Status: Acute recent [facility] 11/04 - coronary arteries are angiographically normal with severe LV dysfunction EF 20% cardio at that time recommended "aggressive risk factor modification with guideline directed CHF medical therapy, if after 3 months EF <35% consider ICD or BiV ICD" cardiology consulted, recs appreciated (8) DVT prophylaxis Current Visit: Yes Status: Resolved Heparin Neuro: does not follow commands switch sedation to Precedex and Fent Cardio: nonischemic cardiomyopathy with systolic heart failure lasix x1 hemodynamically stable cardio consulted NSTEMI, peak at 0.30 Resp: intubated, continue vent management acute on chronic resp failure with hypercapnia and hypoxia, improving start CPAP trials daily ABGs COPD, scheduled bronchodilators and steroids FEN/GI: IV protonix monitor electrolytes x1 Lasix start TFs glucose range 90-123 Heme/ID: afebrile, cultures pendings H/H stable, continue to monitor MSK: continue ICU nursing skin care per protocol Lines: IVs c/d/i no CVC continue smith for strict I/Os DVT Prophylaxis: heparin DISPO: continue to monitor in ICU Subjective Principal diagnosis: RESPIRATORY FAILURE Interval history: Patient seen and examined at bedside. No acute events overnight. Patient is sedated. We will attempt CPAP later today. Daughter, sister, mother at bedside and updated. They do not live with the patient but report significant drug abuse history. Patient's urine toxicology positive for amphetamines and benzodiazepine. Patient has history of heroin use. Patient is reportedly a 4 pack per day smoker. He takes IV Vivitrol injections. Objective PUL Vital signs: Last Vital Signs Temp 97.2 F L 11/07/17 07:19 Pulse 76 11/07/17 06:00 Resp 22 11/07/17 06:00 BP 101/77 11/07/17 06:00 Pulse Ox 94 11/07/17 06:00 General appearance: no acute distress, other (Sedated, mechanically ventilated) Eyes: nonicteric ENT: oropharynx moist, other (Endotracheal intubation) Neck: supple, no JVD Effort: other (Mechanically ventilated) Auscultation: bilateral: clear Cardiovascular: regular rate and rhythm Gastrointestinal: normoactive bowel sounds, soft, non-tender, non-distended Integumentary: normal Extremities: no cyanosis, no edema, no clubbing, pink and warm, no ischemia or petechiae Musculoskeletal: no deformities pupils equal and round, unable to assess due to mental status Ventilator Settings Ventilator Settings: Ventilator Settings, Last 8 Hours Ventilator Mode A/C Ventilator Mode A/C Ventilator Mode A/C Ventilator Mode A/C Ventilator Mode A/C Ventilator Mode A/C Ventilator Mode A/C Ventilator Mode A/C Ventilator Mode A/C Ventilator Mode A/C Ventilator Tidal Volume 500 Setting Ventilator Tidal Volume 500 Setting Ventilator Tidal Volume 500 Setting Ventilator Tidal Volume 500 Setting Ventilator Tidal Volume 500 Setting Ventilator Tidal Volume 500 Setting Ventilator Tidal Volume 500 Setting Ventilator Tidal Volume 500 Setting Ventilator Tidal Volume 500 Setting Ventilator Tidal Volume 500 Setting Ventilator Respiratory Rate 22 Setting Ventilator Respiratory Rate 22 Setting Ventilator Respiratory Rate 22 Setting Ventilator Respiratory Rate 22 Setting Ventilator Respiratory Rate 22 Setting Ventilator Respiratory Rate 22 Setting Ventilator Respiratory Rate 22 Setting Ventilator Respiratory Rate 22 Setting Ventilator Respiratory Rate 22 Setting Ventilator Respiratory Rate 22 Setting Actual Respiratory Rate 22 Actual Respiratory Rate 22 Actual Respiratory Rate 22 Actual Respiratory Rate 22 Actual Respiratory Rate 22 Actual Respiratory Rate 22 Actual Respiratory Rate 22 Actual Respiratory Rate 22 Actual Respiratory Rate 22 Positive End Expiratory 5 Pressure Positive End Expiratory 5 Pressure Positive End Expiratory 5 Pressure Positive End Expiratory 5 Pressure Positive End Expiratory 5 Pressure Positive End Expiratory 5 Pressure Positive End Expiratory 5 Pressure Positive End Expiratory 5 Pressure Positive End Expiratory 5 Pressure Positive End Expiratory 5 Pressure Peak Inspiratory Airway 24 Pressure Peak Inspiratory Airway 28 Pressure Results - Laboratory Findings CBC and BMP: 11/07/17 06:14 11/07/17 06:14 ABG ABG pH 7.32 pH Units (7.32-7.45) 11/07/17 04:42 ABG pCO2 57 mmHg (35-45) H 11/07/17 04:42 ABG pO2 93 mmHg (85-104) 11/07/17 04:42 ABG O2 Saturation 96 % (95-98) 11/07/17 04:42 Abnormal lab findings: Abnormal lab results WBC 16.2 K/mcL (4.3-11.1) H 11/07/17 06:14 MCHC 31.3 g/dL (31.6-35.5) L 11/07/17 06:14 RDW 15.4 % (11.5-14.5) H 11/07/17 06:14 Neutrophils # 14.5 K/mcL (1.6-8.9) H 11/07/17 06:14 Nucleated RBCs/100 WBC 0.1 /100 WBC (0) H 11/06/17 06:40 ABG pCO2 57 mmHg (35-45) H 11/07/17 04:42 ABG HCO3 29 mEq/L (21-27) H 11/07/17 04:42 ABG Total CO2 31 mEq/L (20-26) H 11/07/17 04:42 VBG pCO2 52 mmHg (41-51) H 11/06/17 10:42 VBG pO2 185 mmHg (25-50) H 11/06/17 10:42 Chloride 112 mEq/L (98-107) H 11/07/17 06:14 BUN 38 mg/dL (6-20) H 11/07/17 06:14 Est GFR (Non-Af Amer) 59 (> 60) L 11/07/17 06:14 BUN/Creatinine Ratio 29 (6-26) H 11/07/17 06:14 Glucose 138 mg/dL (70-105) H 11/07/17 06:14 POC Glucose 122 mg/dL (68-89) H 11/07/17 06:16 Calculated Osmolality 307 (280-300) H 11/07/17 06:14 Calcium 8.4 mg/dL (8.6-10.3) L 11/07/17 06:14 Phosphorus 5.3 mg/dL (2.7-4.5) H 11/06/17 06:40 Troponin I 0.19 ng/mL (< 0.04) H* 11/06/17 22:07 B-Natriuretic Peptide 2705 pg/mL (Less than 100) H 11/06/17 06:40 Ur Specific Ripton 1.030 (1.010-1.025) H 11/06/17 06:41 Urine Protein 30 mg/dL (Neg-Trace) H 11/06/17 06:41 Ur Squamous Epith Cells Many per lpf (None-Few) H 11/06/17 06:41 Ur Amphetamines Screen Positive ng/mL (Ptenqf=7291) H 11/06/17 22:09 U Benzodiazepines Scrn Positive ng/mL (Gnsvkm=805) H 11/06/17 22:09 - Microbiology Findings Microbiology Findings: Microbiology, Last 48 Hours 11/07/17 04:41 Sputum Culture - Preliminary Sputum - Clinical Findings Intake & Output: Intake & Output 11/06/17 11/06/17 11/07/17 15:59 23:59 07:59 Intake Total 157.8 / 157.8 100 / 100 Output Total 550 / 550 325 / 325 425 / 425 Balance -550 / 1839.4 -167.2 / -167.2 -325 / -325 Weight 68.5 kg - VTE Documentation of Mechanical Device: Intermittent pneumatic compression device Consult Discharge Plan - Plan [facility]: [facility]Primary Care Provider[facility] - <Mary Ellen Christensen S - Last Filed: 11/08/17 00:05> Date of Encounter: 11/07/17 Objective PUL Vital signs: Last Vital Signs Temp 97.2 F L 11/07/17 19:18 Pulse 86 11/07/17 22:00 Resp 17 11/07/17 22:39 BP 134/97 11/07/17 22:00 Pulse Ox 94 11/07/17 22:39 Results - Laboratory Findings CBC and BMP: 11/07/17 06:14 11/07/17 06:14 ABG ABG pH 7.32 pH Units (7.32-7.45) 11/07/17 04:42 ABG pCO2 57 mmHg (35-45) H 11/07/17 04:42 ABG pO2 93 mmHg (85-104) 11/07/17 04:42 ABG O2 Saturation 96 % (95-98) 11/07/17 04:42 Abnormal lab findings: Abnormal lab results WBC 16.2 K/mcL (4.3-11.1) H 11/07/17 06:14 MCHC 31.3 g/dL (31.6-35.5) L 11/07/17 06:14 RDW 15.4 % (11.5-14.5) H 11/07/17 06:14 Neutrophils # 14.5 K/mcL (1.6-8.9) H 11/07/17 06:14 Nucleated RBCs/100 WBC 0.1 /100 WBC (0) H 11/06/17 06:40 ABG pCO2 57 mmHg (35-45) H 11/07/17 04:42 ABG HCO3 29 mEq/L (21-27) H 11/07/17 04:42 ABG Total CO2 31 mEq/L (20-26) H 11/07/17 04:42 VBG pCO2 52 mmHg (41-51) H 11/06/17 10:42 VBG pO2 185 mmHg (25-50) H 11/06/17 10:42 Chloride 112 mEq/L (98-107) H 11/07/17 06:14 BUN 38 mg/dL (6-20) H 11/07/17 06:14 Est GFR (Non-Af Amer) 59 (> 60) L 11/07/17 06:14 BUN/Creatinine Ratio 29 (6-26) H 11/07/17 06:14 Glucose 138 mg/dL (70-105) H 11/07/17 06:14 POC Glucose 225 mg/dL (68-89) H 11/07/17 17:11 Calculated Osmolality 307 (280-300) H 11/07/17 06:14 Calcium 8.4 mg/dL (8.6-10.3) L 11/07/17 06:14 Phosphorus 5.3 mg/dL (2.7-4.5) H 11/06/17 06:40 Troponin I 0.19 ng/mL (< 0.04) H* 11/06/17 22:07 B-Natriuretic Peptide 2705 pg/mL (Less than 100) H 11/06/17 06:40 Ur Specific Ripton 1.030 (1.010-1.025) H 11/06/17 06:41 Urine Protein 30 mg/dL (Neg-Trace) H 11/06/17 06:41 Ur Squamous Epith Cells Many per lpf (None-Few) H 11/06/17 06:41 Ur Amphetamines Screen Positive ng/mL (Dbpyiv=7842) H 11/06/17 22:09 U Benzodiazepines Scrn Positive ng/mL (Dnfywb=180) H 11/06/17 22:09 - Microbiology Findings Microbiology Findings: Microbiology, Last 48 Hours 11/07/17 04:41 Sputum Culture - Preliminary Sputum - Clinical Findings Intake & Output: Intake & Output 11/07/17 11/07/17 11/07/17 07:59 15:59 23:59 Intake Total 250 / 250 500 / 500 480 / 480 Output Total 425 / 425 1950 / 1949 Balance -175 / -175 -1450 / -1450 -1645 / -1645 Weight 68.5 kg - Attending Attestation - Attending Attestation I saw and evaluated this patient and my medical decision-making was reviewed with the Resident Physician. I agree with the documented findings, disposition and treatment plan as described except to the extent set forth below. We independently had [id number] contact with the patient I spent 33 minutes of Critical Care time with this patient. It involved decision making of high complexity to assess, manipulate, and support vital organ system failure and/or to prevent further life threatening deterioration of the patient's condition. The time involved in the performance of separately reportable procedures was not counted toward critical care time. Patient seen and examined at bedside Labs, radiology, chart personally reviewed. FOOD SALES CLERK:Patient is waking up still confused will give more time to come off sedation Pulm: Patient has acute on chronic hypoxic and hypercarbic respiratory failure secondary to COPD and CHF exacerbation to continue bronchodilators and steroids . If he passes SBT will extubate .Will need BIPAP at night Cards: Hemodynamiclly stable , NSTEMI will trend troponins . Acute on systolic heart failure , ECHO showed non ischemic cardiomyopathy FEN-GI:Nutrition per dietary Renal: Labs and output reviewed ID: Will start deescalating the antbiotics Heme/Onc: Labs reviewed Endo: Glucose Monitored Integ/MSK: Skin Care per routine ICU Nursing Protocol to prevent ulcers. Lines: All lines examined without evidence of infection : Dispo: Critically ill CODE: Full Code
[2017-11-07] MEDS: Piperacillin/Tazobactam 3.375 GM in 0.9 % Sodium Chloride Mini Bag 100 ML IVPB SCH ×3 (08:33→23:50)
[2017-11-07] MEDS: Levofloxacin 500 MG/100 ML 500 MG/100 ML BAG IVPB SCH (08:34)
[2017-11-07] MEDS: Pantoprazole 40 MG VIAL IVP SCH (08:34)
[2017-11-07] MEDS: Dexmedetomidine HCl 400 MCG/100 ML MLS IVC SCH ×2 (08:35→09:48)
[2017-11-07] MEDS: FentaNYL (PF) 1,000 MCG in 0.9 % Sodium Chloride 80 ML IVC SCH ×2 (08:35→09:50)
[2017-11-07] MEDS: Chlorhexidine Rinse 15 ML MOUTHWASH MM SCH ×2 (08:36→22:05)
[2017-11-07] MEDS ORDERED: Furosemide 40 MG/4 ML VIAL IVP ONE (11:28)
--- NOTE | 2017-11-07 13:14 | Cardiology Consult Note ---
Addendum entered and electronically signed by Sage Lee CNP 11/07/17 13:50 : Patient still intubated. Will give IV lasix today and start oral tomorrow. Original Note: <Sage Lee - Last Filed: 11/07/17 13:10> Date of Encounter: 11/07/17 Time of Encounter: 13:00 Assessment and Plan (1) Acute and chronic respiratory failure with hypoxia Current Visit: No Status: Acute Acute respiratory failure due to CHF, PNA, and COPD. Also possible drug use per significant other. On ventilator support. Pulmonology following. (2) Acute on chronic systolic CHF (congestive heart failure) Current Visit: Yes Status: Acute Acute on chronic CHF. EF 20% on [facility] 11/04/17. TTE showed EF newly reduced 30-35% compared to prior echo 09/2017 when EF was 50-55%. Fluid overload on presentation. IV lasix given. Appears euvolemic on exam today. BNP 2705. I&O shows 900ML + Poor medical management due to patient leaving AMA. CHF education reviewed with significant other and daughters. Patient currently eating high sodium diet at home. D/c HCTZ and start lasix 20 mg daily. Start beta-kelin. Consider aceI if b/p allows. Strict I&O and daily weights. (3) Elevated troponin Current Visit: Yes Status: Acute Mild troponin elevation secondary to demand ischemia in te setting of respiratory failure. [facility] 11/04/17 showed normal coronaries. EF 20%. TTE showed EF 30%. No further cardiac testing recommended. Discussion w patient/family: The assessment and plan as outlined above was discussed with the patient and/or family members who expressed understanding and agreement. All questions were answered. Thank you for involving us in the care of your patient. Please call with any questions. History of Present Illness Consult date: 11/07/17 Requesting physician: Javier Pérez Consult reason: cardiomyopathy, respiratory failure Chief complaint: respiratory failure History of present illness: Mr. Brink is a 51 year old male with recently diagnosed NICMP with EF 20%, prior heroine use, substance abuse, emphysema and tobacco abuse. he presented from home when he was found to be "barely" breathing by his girlfriend and his lips were blue. She states that he had difficulty breathing all night and was restless prior to the event. He took multiple breathing treatments with no improvement. She also notes that he took valium that he is not prescribed and smoked mth that week. She is not sure if he took or smoke any substances prior to the event. He was recently hospitalized and found to have a new NICMP. He underwent LHC that showed normal coronary arteries. Directly after his LHC he left AMA and did not have time to be placed on medications for his cardiomyopathy. Past Med Surg Social Fam HX - Past Medical History Medical history: CHF, COPD, GERD, hypertension, other Psychiatric history: no psych history - Past Surgical History Surgical History: non-contributory, other - Social History Smoking Status: Current every day smoker Smokeless Tobacco Status: No Alcohol use: none Drug use: none, other - Family History Mother Living Status: Still Living Father Living Status: Hx Family Cardiac Disorders: Yes (CHF) Medications and Allergies Albuterol Sulfate [Albuterol Inhaler] 2 puff IH Q6HR PRN 09/25/17 [History] Budesonide/Formoterol 160/4.5 [Symbicort 160/4.5] 1 puff IH BIDR 09/25/17 [ History] Tamsulosin HCl [Flomax] 0.4 mg PO DAILY 09/25/17 [History] hydroCHLOROthiazide [Hydrochlorothiazide] 25 mg PO DAILY 09/25/17 [History] Ipratropium/Albuterol Neb [Duoneb] 3 ml IH BID PRN 11/03/17 [History] Loratadine [Allergy Relief] 10 mg PO DAILY PRN 11/03/17 [History] Oxygen 2 l NS CONT 11/03/17 [History] traZODone [TraZODone] 50 mg PO HS PRN 11/03/17 [History] 3 Allergy/AdvReac Type Severity Reaction Status Date / Time No Known Allergies Allergy Verified 08/09/15 23:34 All Systems Review: The remainder of the systems were reviewed and are negative Physical Examination Vital Signs, Last 4 Hours Temp Pulse Resp BP Pulse Ox 11/07/17 12:40 23 93 11/07/17 11:06 11 107/78 96 11/07/17 11:04 98.4 F 75 23 107/78 97 11/07/17 10:10 80 26 105/81 97 11/07/17 09:38 22 102/76 94 11/07/17 09:31 78 22 102/76 93 General: No Apparent Distress, Other (sedated) HEENT: Atraumatic, Normocephaly, Mucus Membranes Moist Neck: No JVD, Normal carotid pulses Cardiac: Reg Rate and Rhythm, Normal S1 and S2, No Murmur, Other (Currently on ventilator support) Lungs: Normal Breath Sounds, No Wheeze, Rales, Rhonchi Neuro: Other (sedated) Abdomen: Soft, Non-Tender Skin: No rashes noted on visualized skin Musculoskeletal: No Chest Wall Tenderness Extremities: No Clubbing, No Cyanosis, No Edema, Normal Pulses Results 11/07/17 06:14 11/07/17 06:14 Lab Results 11/06/17 11/06/17 11/07/17 16:11 22:07 06:14 WBC 16.2 H Hgb 13.1 D Hct 41.9 Plt Count 154 D Sodium Potassium Chloride Carbon Dioxide BUN Creatinine Glucose Calcium Troponin I 0.30 H* 0.19 H* 11/07/17 06:14 WBC Hgb Hct Plt Count Sodium 143 Potassium 4.4 Chloride 112 H Carbon Dioxide 28 BUN 38 H Creatinine 1.30 Glucose 138 H Calcium 8.4 L Troponin I Head CT 11/06/17 06:38 IMPRESSION: No acute intracranial abnormality. Evaluation is mildly limited due to motion artifact and prominent beam hardening artifact. Left maxillary sinusitis is noted. D/ / 11/06/2017 08:13:26 [facility] Interpreting Provider: Paul Mejia MD Chest X-Ray 11/06/17 09:09 IMPRESSION: 1. Endotracheal tube has been advanced, now positioned approximately 7 cm above the doretha. 2. NG tube present with side port and tip in the body of the stomach. 3. Re-demonstration of increased interstitial opacities bilaterally, along with stable asymmetric airspace opacity at the right base. These findings are superimposed on emphysema. D/ / 11/06/2017 09:25:45 Paul Mejia MD / [facility] Interpreting Provider: Paul Mejia MD - Imaging and Cardiology Echo: report reviewed Cardiac cath: report reviewed - EKG Interpretation EKG results cardiology: personally reviewed Consult Discharge Plan - Plan [facility]errals: [facility] [Primary Care Provider[facility] - <Stephanie Lujan - Last Filed: 11/07/17 14:14> Date of Encounter: 11/07/17 - Attending Attestation I examined this patient and my medical decision-making was reviewed with the OUTSIDE SALES ASSOCIATE. I agree with the documented findings, disposition and treatment plan as described. Mr. Brink presents with acute respiratory failure which appears multifactorial. Recently diagnosed with NICM and left AMA. Appears relatively euvolemic on exam after IV diuresis. Agree with another dose of Lasix 40mg IV. Would resume PO maintenance tomorrow. Further diuresis management per critical care team. Starting low dose BB. ACEI when BP tolerates. Troponin elevation mild in setting of demand ischemia from acute respiratory failure and systolic CHF. Recent cath demonstrates normal coronary arteries. Will sign off. Please call with questions. Assessment and Plan Discussion w patient/family: The assessment and plan as outlined above was discussed with the patient and/or family members who expressed understanding and agreement. All questions were answered. Thank you for involving us in the care of your patient. Please call with any questions. History of Present Illness History of present illness: Mr. Brink is a 51 year old male All Systems Review: The remainder of the systems were reviewed and are negative Physical Examination Vital Signs, Last 4 Hours Temp Pulse Resp BP Pulse Ox 11/07/17 13:48 79 14 121/89 93 11/07/17 12:40 23 93 11/07/17 12:00 75 15 119/86 93 11/07/17 11:06 11 107/78 96 11/07/17 11:04 98.4 F 75 23 107/78 97 11/07/17 10:10 80 26 105/81 97 Results 11/07/17 06:14 11/07/17 06:14 Lab Results 11/06/17 11/06/17 11/07/17 16:11 22:07 06:14 WBC 16.2 H Hgb 13.1 D Hct 41.9 Plt Count 154 D Sodium Potassium Chloride Carbon Dioxide BUN Creatinine Glucose Calcium Troponin I 0.30 H* 0.19 H* 11/07/17 06:14 WBC Hgb Hct Plt Count Sodium 143 Potassium 4.4 Chloride 112 H Carbon Dioxide 28 BUN 38 H Creatinine 1.30 Glucose 138 H Calcium 8.4 L Troponin I
[2017-11-07] MEDS ORDERED: Furosemide 20 MG TABLET PO PRN (13:42)
[2017-11-07] MEDS ORDERED: Furosemide 20 MG/2 ML VIAL IVP ONE (13:48)
[2017-11-07] MEDS: Metoprolol XL (24 HR) Succ 25 MG TAB.ER.24H PO SCH (15:49)
[2017-11-08] MEDS: Lacri-Lube 3.5 GM TUBE BOTH EYES SCH ×2 (04:19→07:38)
[2017-11-08] MEDS: Ipratropium/Albuterol Neb 3 ML IH SCH ×4 (04:53→22:56)
[2017-11-08] MEDS: *HR* Heparin 5,000 UNIT/ML VIAL SQ SCH ×2 (05:58→16:48)
[2017-11-08] MEDS: MethylPREDNISolone 40 MG/ML VIAL IVP SCH ×3 (05:58→16:48)
--- NOTE | 2017-11-08 06:57 | Pulmonology Progress Note ---
<Javier Pérez - Last Filed: 11/08/17 13:28> Date of Encounter: 11/08/17 Time of Encounter: 06:57 Assessment and Plan (1) Acute on chronic respiratory failure with hypoxia and hypercapnia Current Visit: Yes Status: Acute presented unresponsive with respiratory failure requiring intubation likely secondary to COPD and CHF exacerbation - extubated 11/07 to NC - continue diuresis recent hospitalization for pneumonia - blood and sputum culture NGTD, will de-escalate antibiotics continue with scheduled bronchodilators and steroids (2) Sepsis Current Visit: Yes Status: Acute patient presented initially with tachycardia and significant leukocytosis - leukocytosis improving without fevers suspect more COPD and CHF component remains afebrile blood cultures (11/06) x2 - NGTD sputum culture pending empiric antibiotics de-escalated to Zosyn - discontinued Vancomycin and Levaquin 11/08 he is not hypotensive requiring fluid resuscitation lactate 1.4 from initial 1.9 urinalysis without signs of infection Qualifiers: Sepsis type: sepsis due to unspecified organism Qualified Code(s): A41.9 - Sepsis, unspecified organism (3) COPD (chronic obstructive pulmonary disease) Current Visit: Yes Status: Chronic continue scheduled duonebs and steroids Qualifiers: COPD type: unspecified COPD Qualified Code(s): J44.9 - Chronic obstructive pulmonary disease, unspecified (4) Acute systolic (congestive) heart failure Current Visit: Yes Status: Acute recent ECHO 11/03 - 30-35% global LV systolic dysfunction with normal right ventricular size - newly reduced LV systolic function noted from prior ECHO 09/25/2017 BNP elevated 2705 fluid resuscitated in ED Lasix x1 cardiology consulted, recs appreciated - start on daily Toprol 12.5, Lasix - BP adequate, started on low dose Lisinopril 5 mg DAILY, continue to watch SCr (5) Pneumonia Current Visit: Yes Status: Acute empirical coverage with Vanc, Levaquin, and Zosyn due to recent hospitalization - de-escalate to Zosyn 11/08 blood cultures NGTD sputum culture NGTD CTA Chest 11/03 on prior admission - right greater than left basilar airspace disease with right effusion, nonspecific possibly pneumonia Qualifiers: Pneumonia type: due to unspecified organism Laterality: right Lung location: lower lobe of lung Qualified Code(s): J18.1 - Lobar pneumonia, unspecified organism (6) NSTEMI (non-ST elevated myocardial infarction) Current Visit: Yes Status: Acute EKG without ischemic changes Trop peak at 0.3, downtrended to 0.19 recent admission with [facility] 11/04 - angiographically normal coronary arteries with severe LV dysfunction EF 20% cardiology consulted, recs appreciated - no further intervention - continue medical management (7) Nonischemic cardiomyopathy Current Visit: Yes Status: Acute recent [facility] 11/04 - coronary arteries are angiographically normal with severe LV dysfunction EF 20% cardio at that time recommended "aggressive risk factor modification with guideline directed CHF medical therapy, if after 3 months EF <35% consider ICD or BiV ICD" cardiology consulted, recs appreciated - started on Toprol XL and Lasix 11/07 - start on Lisinopril 5 mg today 11/08, continue to watch renal function (8) DVT prophylaxis Current Visit: Yes Status: Resolved Heparin Neuro: awake, alert, and oriented Cardio: nonischemic cardiomyopathy with systolic heart failure lasix PO daily hemodynamically stable - started on Toprol 12.5 and Lisinopril cardio consulted NSTEMI, peak at 0.30 Resp: extubated 11/07, on home O2 requirement acute on chronic resp failure with hypercapnia and hypoxia, improving COPD, scheduled bronchodilators and steroids FEN/GI: IV protonix monitor electrolytes continue to monitor renal function D/C smith cardiac diet glucose range 215-225 - continue to monitor, no history of DM Heme/ID: afebrile, cultures NGTD - de-escalate to Zosyn H/H stable, continue to monitor MSK: continue ICU nursing skin care per protocol Lines: IVs c/d/i no CVC discontinue smith DVT Prophylaxis: heparin 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 Odom, admitting hospitalist Subjective Principal diagnosis: RESPIRATORY FAILURE Interval history: Patient seen and examined at bedside. He was extubated yesterday afternoon around 1500. No issues with respiratory failure overnight. He is tolerating a cardiac diet. He denies any dyspnea, chest pain, abdominal pain, nausea or vomiting. He is able to provide further history and does admit to amphetamine use 2 weeks prior as well as Valium. 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 She is normally to liter home oxygen supplementation at home. He was started on Lasix and Toprol XL 12.5. His blood pressures have been adequate SBP 110-130 overnight, will start on ACEi. Creatinine function continues to improve. No other complaints. Objective PUL Vital signs: Last Vital Signs Temp 98.2 F 11/08/17 02:55 Pulse 78 11/08/17 06:00 Resp 13 11/08/17 06:00 BP 105/82 11/08/17 06:00 Pulse Ox 88 11/08/17 06:00 General appearance: no acute distress, alert Eyes: nonicteric ENT: oropharynx moist Neck: supple Effort: normal Auscultation: bilateral: clear Cardiovascular: regular rate and rhythm Gastrointestinal: normoactive bowel sounds, soft, non-tender, non-distended Integumentary: normal Extremities: no cyanosis, no edema, no clubbing, pink and warm, pulses normal, no ischemia or petechiae Musculoskeletal: no deformities, ROM normal normal mental status, non-focal exam, pupils equal and round, motor strength normal and symmetric mood appropriate, affect normal Results - Laboratory Findings CBC and BMP: 11/08/17 06:04 11/08/17 06:04 ABG ABG pH 7.32 pH Units (7.32-7.45) 11/07/17 04:42 ABG pCO2 57 mmHg (35-45) H 11/07/17 04:42 ABG pO2 93 mmHg (85-104) 11/07/17 04:42 ABG O2 Saturation 96 % (95-98) 11/07/17 04:42 Abnormal lab findings: Abnormal lab results WBC 16.2 K/mcL (4.3-11.1) H 11/07/17 06:14 MCHC 31.3 g/dL (31.6-35.5) L 11/07/17 06:14 RDW 15.4 % (11.5-14.5) H 11/07/17 06:14 Neutrophils # 14.5 K/mcL (1.6-8.9) H 11/07/17 06:14 Nucleated RBCs/100 WBC 0.1 /100 WBC (0) H 11/06/17 06:40 ABG pCO2 57 mmHg (35-45) H 11/07/17 04:42 ABG HCO3 29 mEq/L (21-27) H 11/07/17 04:42 ABG Total CO2 31 mEq/L (20-26) H 11/07/17 04:42 VBG pCO2 52 mmHg (41-51) H 11/06/17 10:42 VBG pO2 185 mmHg (25-50) H 11/06/17 10:42 Chloride 112 mEq/L (98-107) H 11/07/17 06:14 BUN 38 mg/dL (6-20) H 11/07/17 06:14 Est GFR (Non-Af Amer) 59 (> 60) L 11/07/17 06:14 BUN/Creatinine Ratio 29 (6-26) H 11/07/17 06:14 Glucose 138 mg/dL (70-105) H 11/07/17 06:14 POC Glucose 225 mg/dL (68-89) H 11/07/17 17:11 Calculated Osmolality 307 (280-300) H 11/07/17 06:14 Calcium 8.4 mg/dL (8.6-10.3) L 11/07/17 06:14 Phosphorus 5.3 mg/dL (2.7-4.5) H 11/06/17 06:40 Troponin I 0.19 ng/mL (< 0.04) H* 11/06/17 22:07 B-Natriuretic Peptide 2705 pg/mL (Less than 100) H 11/06/17 06:40 Ur Specific [place] 1.030 (1.010-1.025) H 11/06/17 06:41 Urine Protein 30 mg/dL (Neg-Trace) H 11/06/17 06:41 Ur Squamous Epith Cells Many per lpf (None-Few) H 11/06/17 06:41 Ur Amphetamines Screen Positive ng/mL (Dxomxj=4634) H 11/06/17 22:09 U Benzodiazepines Scrn Positive ng/mL (Gmgotu=146) H 11/06/17 22:09 - Microbiology Findings Microbiology Findings: Microbiology, Last 48 Hours 11/07/17 04:41 Sputum Culture - Preliminary Sputum - Clinical Findings Intake & Output: Intake & Output 11/07/17 11/07/17 11/08/17 15:59 23:59 07:59 Intake Total 500 / 500 580 / 580 100 / 100 Output Total 1950 / 1950 2375 / 2375 150 / 150 Balance -1450 / -1450 -1795 / -1795 -50 / -50 Weight 64.8 kg - VTE Documentation of Mechanical Device: Intermittent pneumatic compression device Consult Discharge Plan - Plan [facility]: [facility]Primary Care Provider[facility] - <Mary Ellen Christensen - Last Filed: 11/08/17 22:49> Date of Encounter: 11/08/17 Objective PUL Vital signs: Last Vital Signs Temp 98.0 F 11/08/17 18:54 Pulse 74 11/08/17 18:54 Resp 18 11/08/17 18:54 BP 110/75 11/08/17 18:54 Pulse Ox 89 11/08/17 18:54 Results - Laboratory Findings CBC and BMP: 11/08/17 06:04 11/08/17 06:04 ABG ABG pH 7.32 pH Units (7.32-7.45) 11/07/17 04:42 ABG pCO2 57 mmHg (35-45) H 11/07/17 04:42 ABG pO2 93 mmHg (85-104) 11/07/17 04:42 ABG O2 Saturation 96 % (95-98) 11/07/17 04:42 Abnormal lab findings: Abnormal lab results WBC 22.2 K/mcL (4.3-11.1) H 11/08/17 06:04 RDW 14.9 % (11.5-14.5) H 11/08/17 06:04 Neutrophils # 20.2 K/mcL (1.6-8.9) H 11/08/17 06:04 Nucleated RBCs/100 WBC 0.1 /100 WBC (0) H 11/06/17 06:40 ABG pCO2 57 mmHg (35-45) H 11/07/17 04:42 ABG HCO3 29 mEq/L (21-27) H 11/07/17 04:42 ABG Total CO2 31 mEq/L (20-26) H 11/07/17 04:42 VBG pCO2 52 mmHg (41-51) H 11/06/17 10:42 VBG pO2 185 mmHg (25-50) H 11/06/17 10:42 Potassium 3.4 mEq/L (3.5-5.1) L 11/08/17 06:04 Carbon Dioxide 33 mEq/L (23-29) H 11/08/17 06:04 BUN 38 mg/dL (6-20) H 11/08/17 06:04 Creatinine 1.48 mg/dL (0.70-1.30) H 11/08/17 06:04 Est GFR (Non-Af Amer) 51 (> 60) L 11/08/17 06:04 Glucose 169 mg/dL (70-105) H 11/08/17 06:04 POC Glucose 132 mg/dL (68-89) H 11/08/17 15:59 Calculated Osmolality 307 (280-300) H 11/08/17 06:04 Venous Ioniz Calcium 1.09 mmol/L (1.15-1.35) L 11/08/17 06:54 Phosphorus 5.3 mg/dL (2.7-4.5) H 11/06/17 06:40 Troponin I 0.19 ng/mL (< 0.04) H* 11/06/17 22:07 B-Natriuretic Peptide 2705 pg/mL (Less than 100) H 11/06/17 06:40 Ur Specific [place] 1.030 (1.010-1.025) H 11/06/17 06:41 Urine Protein 30 mg/dL (Neg-Trace) H 11/06/17 06:41 Ur Squamous Epith Cells Many per lpf (None-Few) H 11/06/17 06:41 Ur Amphetamines Screen Positive ng/mL (Orbtfw=3857) H 11/06/17 22:09 U Benzodiazepines Scrn Positive ng/mL (Ozwgze=003) H 11/06/17 22:09 - Microbiology Findings Microbiology Findings: Microbiology, Last 48 Hours 11/07/17 04:41 Sputum Culture - Preliminary Sputum - Clinical Findings Intake & Output: Intake & Output 11/08/17 11/08/17 11/08/17 07:59 15:59 23:59 Intake Total 100 / 100 350 / 350 200 / 200 Output Total 150 / 150 250 / 250 Balance -50 / -50 100 / 100 200 / 200 Weight 64.8 kg - Attending Attestation - Attending Attestation I saw and evaluated this patient and my medical decision-making was reviewed with the Resident Physician. I agree with the documented findings, disposition and treatment plan as described except to the extent set forth below. We independently had [id number] contact with the patient Patient seen and examined at bedside Labs, radiology, chart personally reviewed. 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 To continue BIPAP at night Cards: Hemodynamiclly stable , NSTEMI . Acute on systolic heart failure , ECHO showed non ischemic cardiomyopathy FEN-GI:Patient can have regular diet Renal: Labs and output reviewed ID:started deescalating the antbiotics Heme/Onc: Labs reviewed Endo: Glucose Monitored Integ/MSK: Skin Care per routine ICU Nursing Protocol to prevent ulcers. Lines: All lines examined without evidence of infection : Dispo: Stable can be transferred Step Down CODE: Full Code
[2017-11-08 06:58] LABS: VBG Ionized Calcium 1.09 mmol/L (1.15-1.35)
[2017-11-08 07:15] LABS: BUN/Creatinine Ratio 26 (6-26); Blood Urea Nitrogen 38 mg/dL (6-20); Calcium 8.9 mg/dL (8.6-10.3); Carbon Dioxide 33 mEq/L (23-29); Chloride 102 mEq/L (98-107); Glucose 169 mg/dL (70-105); Osmolality,Calculated 307 (280-300); Potassium 3.4 mEq/L (3.5-5.1); Sodium 142 mEq/L (136-145); eGFR For African Americans > 60 (> 60); eGFR For Non-African Americans 51 (> 60)
[2017-11-08] MEDS ORDERED: Insulin LISPRO 300 UNITS/3 ML VIAL SQ SCH ×2 (07:30→21:00)
[2017-11-08] MEDS: Levofloxacin 500 MG/100 ML 500 MG/100 ML BAG IVPB SCH (07:35)
[2017-11-08] MEDS: Chlorhexidine Rinse 15 ML MOUTHWASH MM SCH (07:36)
[2017-11-08] MEDS: Metoprolol XL (24 HR) Succ 25 MG TAB.ER.24H PO SCH (07:36)
[2017-11-08] MEDS: Pantoprazole 40 MG VIAL IVP SCH (07:37)
[2017-11-08 07:46] LABS: Basophils % 0.1 %; Hematocrit 40.8 % (37.5-50.1); Hemoglobin 13.2 g/dL (12.9-16.9); Immature Granulocytes % 1.1 % (0-4); Lymphocytes # 0.8 K/mcL (0.6-4.6); Lymphocytes % 3.4 %; Mean Corpuscular HGB Conc 32.4 g/dL (31.6-35.5); Mean Corpuscular Hemoglobin 28.8 pg (28.0-33.3); Mean Corpuscular Volume 89.1 fL (83.0-100.0); Mean Platelet Volume 11.9 fL (9.4-12.4); Monocytes # 0.9 K/mcL (0.0-1.3); Monocytes % 4.2 %; Neutrophils # 20.2 K/mcL (1.6-8.9); Platelet Count 182 K/mcL (140-400); Red Blood Count 4.58 M/mcL (4.19-5.50); Red Cell Distribution Width 14.9 % (11.5-14.5); Segmented Neutrophils % 91.2 %
[2017-11-08] MEDS: Piperacillin/Tazobactam 3.375 GM in 0.9 % Sodium Chloride Mini Bag 100 ML IVPB SCH ×3 (08:54→16:47)
[2017-11-08] MEDS ORDERED: Furosemide 20 MG TABLET PO SCH (09:00)
[2017-11-08] MEDS ORDERED: Ipratropium/Albuterol Neb 3 ML IH PRN (09:41)
[2017-11-08] MEDS ORDERED: Naloxone 0.4 MG/ML INJ IVP PRN (09:41)
[2017-11-08] MEDS ORDERED: Aminoglycoside Consult 1 EACH MC ONE (09:42)
[2017-11-08] MEDS: Nicotine 21 MG PATCH.TD24 TD SCH (16:12)
[2017-11-08] MEDS: Dexmedetomidine HCl 400 MCG/100 ML MLS IVC SCH ×2 (16:12→19:46)
[2017-11-09] MEDS: MethylPREDNISolone 40 MG/ML VIAL IVP SCH ×4 (00:06→17:31)
[2017-11-09] MEDS: Piperacillin/Tazobactam 3.375 GM in 0.9 % Sodium Chloride Mini Bag 100 ML IVPB SCH ×3 (01:28→17:31)
[2017-11-09] MEDS: Ipratropium/Albuterol Neb 3 ML IH SCH ×4 (05:04→23:27)
[2017-11-09] MEDS: *HR* Heparin 5,000 UNIT/ML VIAL SQ SCH ×2 (05:29→17:30)
[2017-11-09] MEDS: Metoprolol XL (24 HR) Succ 25 MG TAB.ER.24H PO SCH (08:46)
[2017-11-09] MEDS: Pantoprazole 40 MG VIAL IVP SCH (08:47)
[2017-11-09] MEDS: Nicotine 21 MG PATCH.TD24 TD SCH (08:47)
[2017-11-09] MEDS: Furosemide 20 MG TABLET PO SCH (08:47)
[2017-11-09 09:11] LABS: Basophils % 0.1 %; Hemoglobin 12.8 g/dL (12.9-16.9); Immature Granulocytes % 0.8 % (0-4); Immature Platelets 10.2 % (1.1-6.1); Lymphocytes # 0.5 K/mcL (0.6-4.6); Lymphocytes % 2.4 %; Mean Corpuscular Hemoglobin 28.4 pg (28.0-33.3); Mean Corpuscular Volume 88.7 fL (83.0-100.0); Mean Platelet Volume 11.8 fL (9.4-12.4); Monocytes # 0.5 K/mcL (0.0-1.3); Monocytes % 2.3 %; Neutrophils # 18.5 K/mcL (1.6-8.9); Platelet Count 178 K/mcL (140-400); Red Blood Count 4.51 M/mcL (4.19-5.50); Red Cell Distribution Width 14.8 % (11.5-14.5); Segmented Neutrophils % 94.4 %
[2017-11-09 09:25] LABS: BUN/Creatinine Ratio 23 (6-26); Blood Urea Nitrogen 28 mg/dL (6-20); Calcium 8.8 mg/dL (8.6-10.3); Carbon Dioxide 28 mEq/L (23-29); Chloride 102 mEq/L (98-107); Glucose 265 mg/dL (70-105); Osmolality,Calculated 305 (280-300); Potassium 3.2 mEq/L (3.5-5.1); Sodium 140 mEq/L (136-145); eGFR For African Americans > 60 (> 60); eGFR For Non-African Americans > 60 (> 60)
[2017-11-09] MEDS: Dexmedetomidine HCl 400 MCG/100 ML MLS IVC SCH (11:34)
[2017-11-09] MEDS ORDERED: *HR* Dextrose 50 % in Water (Syg) 50 ML SYRINGE IVP PRN (13:28)
[2017-11-09] MEDS ORDERED: Dextrose Gel 15 GM/37.5 ML TUBE PO PRN ×2 (13:28)
[2017-11-09] MEDS ORDERED: D5% in Water 1,000 ML IVC PRN (13:28)
[2017-11-09] MEDS: Insulin LISPRO 300 UNITS/3 ML VIAL SQ SCH ×3 (14:22→21:29)
--- NOTE | 2017-11-09 14:54 | Internal Med Progress Note ---
Date of Encounter: 11/09/17 Time of Encounter: 14:52 - Assessment and plan (1) Acute on chronic respiratory failure with hypoxia and hypercapnia Current Visit: Yes Status: Acute Assessment and plan: Presented unresponsive with respiratory failure requiring intubation likely secondary to COPD and CHF exacerbation. Extubated 11/07 to NC. Continue diuresis. Antibiotics deescalated to zosyn. Continue with scheduled bronchodilators and steroids. Currently weaning precidex and supplemental O2 as tolerated (patient does not like NC). (2) Sepsis Current Visit: Yes Status: Resolved Assessment and plan: Leukocytosis improved. Afebrile. BP stable. Blood cultures no growth final x 2. Continue zosyn. Qualifiers: Sepsis type: sepsis due to unspecified organism Qualified Code(s): A41.9 - Sepsis, unspecified organism (3) Acute systolic (congestive) heart failure Current Visit: Yes Status: Acute Assessment and plan: Cardiology consulted; appreciate input. Continue lasix, metoprolol, and lisinopril. (4) COPD (chronic obstructive pulmonary disease) Current Visit: Yes Status: Chronic Assessment and plan: Continue scheduled duonebs and steroids. Wean supplemental O2 as tolerated. Qualifiers: COPD type: unspecified COPD Qualified Code(s): J44.9 - Chronic obstructive pulmonary disease, unspecified (5) Nonischemic cardiomyopathy Current Visit: Yes Status: Acute Assessment and plan: Cardiology consulted; appreciate input. Continue lasix, metoprolol, and lisinopril. (6) NSTEMI (non-ST elevated myocardial infarction) Current Visit: Yes Status: Acute Assessment and plan: Cardiology consulted; appreciate input. Continue lasix, metoprolol, and lisinopril. (7) Pneumonia Current Visit: Yes Status: Acute Assessment and plan: Blood and sputum cultures negative. Continue zosyn. Qualifiers: Pneumonia type: due to unspecified organism Laterality: right Lung location: lower lobe of lung Qualified Code(s): J18.1 - Lobar pneumonia, unspecified organism (8) DVT prophylaxis Current Visit: Yes Status: Acute Assessment and plan: Continue SC heparin. - Time Spent With Patient less than 15 minutes - Subjective Interval history: Patient had no acute events overnight. He states that he is feeling "good." He denies chest pain, SOB, fever, or chills. He is tolerating diet. He has no new complaints. - Constitutional Vitals: Temp Pulse Resp BP Pulse Ox 98.0 F 71 14 134/93 91 11/09/17 11:35 11/09/17 11:35 11/09/17 11:35 11/09/17 11:35 11/09/17 11:35 General appearance: Present: cooperative, A&O X 3, pleasant, no acute distress, answers questions appropriately - Respiratory Respiratory exam: Absent: accessory muscle use, rales, rhonchi, wheezes Additional comments: Normal WOB, coarse breath sounds bilaterally - Cardiovascular Cardiovascular exam: Present: RRR, +S1, +S2. Absent: diastolic murmur, gallop, rubs, systolic murmur Additional comments: No BLE edema - GI/Abdominal GI/Abdominal exam: Present: normal bowel sounds, soft. Absent: distended, hepatomegaly, mass, splenomegaly, tenderness - Psychiatric Psychiatric exam: Present: normal affect, normal mood. Absent: anxious, depressed - Skin Skin exam: Present: dry, intact, warm. Absent: cyanosis, rash Internal Medicine: Result - Labs CBC & Chem 7: 11/09/17 08:25 11/09/17 08:25 Labs: Short CBC 11/09/17 Range/Units 08:25 WBC 19.6 H (4.3-11.1) K/mcL Hgb 12.8 L (12.9-16.9) g/dL Hct 40.0 (37.5-50.1) % Plt Count 178 (140-400) K/mcL Neutrophils # 18.5 H (1.6-8.9) K/mcL BMP 11/09/17 08:25 Sodium 140 Potassium 3.2 L Chloride 102 Carbon Dioxide 28 BUN 28 H Creatinine 1.20 Glucose 265 H Calcium 8.8 - ABG Interpretation ABG results: ABG ABG pH 7.32 pH Units (7.32-7.45) 11/07/17 04:42 ABG pCO2 57 mmHg (35-45) H 11/07/17 04:42 ABG pO2 93 mmHg (85-104) 11/07/17 04:42 ABG O2 Saturation 96 % (95-98) 11/07/17 04:42 - VTE Documentation of Mechanical Device: Intermittent pneumatic compression device Consult Discharge Plan - Plan [facility]errals: [facility] [Primary Care Provider[facility] - 11/20/17 12:45 pm
[2017-11-09] MEDS ORDERED: 0.9 % Sodium Chloride 500 ML ONE (21:26)
[2017-11-10] MEDS: Piperacillin/Tazobactam 3.375 GM in 0.9 % Sodium Chloride Mini Bag 100 ML IVPB SCH ×2 (00:31→11:08)
[2017-11-10] MEDS: MethylPREDNISolone 40 MG/ML VIAL IVP SCH ×3 (00:31→12:00)
[2017-11-10] MEDS: Ipratropium/Albuterol Neb 3 ML IH SCH ×4 (04:32→23:31)
[2017-11-10] MEDS: *HR* Heparin 5,000 UNIT/ML VIAL SQ SCH ×2 (05:24→17:08)
[2017-11-10 06:58] LABS: BUN/Creatinine Ratio 24 (6-26); Basophils % 0.2 %; Blood Urea Nitrogen 28 mg/dL (6-20); Calcium 8.3 mg/dL (8.6-10.3); Carbon Dioxide 32 mEq/L (23-29); Chloride 108 mEq/L (98-107); Glucose 158 mg/dL (70-105); Hematocrit 38.6 % (37.5-50.1); Hemoglobin 12.2 g/dL (12.9-16.9); Immature Granulocytes % 1.8 % (0-4); Lymphocytes # 0.5 K/mcL (0.6-4.6); Lymphocytes % 2.2 %; Mean Corpuscular HGB Conc 31.6 g/dL (31.6-35.5); Mean Corpuscular Hemoglobin 28.4 pg (28.0-33.3); Mean Corpuscular Volume 89.8 fL (83.0-100.0); Mean Platelet Volume 11.7 fL (9.4-12.4); Monocytes # 0.7 K/mcL (0.0-1.3); Monocytes % 3.3 %; Neutrophils # 19.2 K/mcL (1.6-8.9); Osmolality,Calculated 307 (280-300); Platelet Count 163 K/mcL (140-400); Potassium 3.5 mEq/L (3.5-5.1); Segmented Neutrophils % 92.5 %; Sodium 144 mEq/L (136-145); eGFR For African Americans > 60 (> 60); eGFR For Non-African Americans > 60 (> 60)
[2017-11-10] MEDS: Insulin LISPRO 300 UNITS/3 ML VIAL SQ SCH ×4 (08:14→21:29)
[2017-11-10] MEDS: Furosemide 20 MG TABLET PO SCH (08:14)
[2017-11-10] MEDS: Pantoprazole 40 MG VIAL IVP SCH (08:15)
[2017-11-10] MEDS: Metoprolol XL (24 HR) Succ 25 MG TAB.ER.24H PO SCH (08:15)
[2017-11-10] MEDS: Nicotine 21 MG PATCH.TD24 TD SCH (08:15)
[2017-11-10] MEDS: Dexmedetomidine HCl 400 MCG/100 ML MLS IVC SCH (13:50)
--- NOTE | 2017-11-10 17:04 | Internal Med Progress Note ---
<Deep Garvin - Last Filed: 11/10/17 17:01> Date of Encounter: 11/10/17 Time of Encounter: 17:01 - Assessment and plan (1) Pneumonia Current Visit: Yes Status: Acute Assessment and plan: Patient had 3 days of Zosyn. . Zosyn today and started on Augmentin orally for the next 7 days. Qualifiers: Pneumonia type: due to unspecified organism Laterality: right Lung location: lower lobe of lung Qualified Code(s): J18.1 - Lobar pneumonia, unspecified organism (2) COPD exacerbation Current Visit: No Status: Acute Assessment and plan: We will start oral prednisone 40 mg tomorrow. Patient improving clinically. Patient is oxygen at home. Patient is 95% on 5 L oxygen mask (3) Cardiomyopathy Current Visit: No Status: Acute Assessment and plan: Nonischemic according to cardiology. Maximize medical therapy at this time. Possibly reversible reversible. Concerned that ejection fraction is around 25% . We will evaluate for qualification of life vest. Qualifiers: Cardiomyopathy type: unspecified Qualified Code(s): I42.9 - Cardiomyopathy , unspecified (4) Sepsis Current Visit: Yes Status: Resolved Assessment and plan: Secondary to pneumonia. Resolving. Treatment as above. Qualifiers: Sepsis type: sepsis due to unspecified organism Qualified Code(s): A41.9 - Sepsis, unspecified organism (5) Acute on chronic respiratory failure with hypoxia and hypercapnia Current Visit: Yes Status: Acute Assessment and plan: Was intubated in the intensive care unit. Now on 5 L Vioxx a mask at 95% oxygen saturation. Improving. Patient mentating properly. (6) Acute on chronic systolic CHF (congestive heart failure) Current Visit: Yes Status: Acute Assessment and plan: Continue medical management as mentioned above. (7) DVT prophylaxis Current Visit: Yes Status: Acute Assessment and plan: 5000 units of heparin subcutaneous every 12 hours. - Subjective Interval history: Patient did well overnight. He is weaning off the Precedex. Has had times of agitation throughout the day. We will take off the Precedex. Spoke with son who is leaving tomorrow morning via airplane. Daughter is coming on . No other events. Patient not having any complaints at this time. He states he is breathing better. - Constitutional Vitals: Temp Pulse Resp BP Pulse Ox 99.0 F 82 22 163/108 93 04/03/18 15:21 11/10/17 15:21 11/10/17 16:32 11/10/17 15:21 11/10/17 16:32 General appearance: Present: cooperative, A&O X 3, pleasant, no acute distress, answers questions appropriately - Head Head exam: Present: atraumatic, normal inspection - ENT ENT exam: Present: mucous membranes moist, normal exam - Neck Neck exam general surgery: Present: supple, trachea midline - Respiratory Respiratory exam: Present: CTAB - Cardiovascular Cardiovascular exam: Present: RRR, +S1. Absent: rubs - GI/Abdominal GI/Abdominal exam: Present: soft, no peritoneal signs. Absent: rebound, rigid, tenderness - Extremities Exam Extremities exam: Absent: pedal edema Internal Medicine: Result - Labs CBC & Chem 7: 11/10/17 04:00 11/10/17 04:00 Labs: Short CBC 11/10/17 Range/Units 04:00 WBC 20.8 H (4.3-11.1) K/mcL Hgb 12.2 L (12.9-16.9) g/dL Hct 38.6 (37.5-50.1) % Plt Count 163 (140-400) K/mcL Neutrophils # 19.2 H (1.6-8.9) K/mcL BMP 11/10/17 04:00 Sodium 144 Potassium 3.5 Chloride 108 H Carbon Dioxide 32 H BUN 28 H Creatinine 1.19 Glucose 158 H Calcium 8.3 L - ABG Interpretation ABG results: ABG ABG pH 7.32 pH Units (7.32-7.45) 11/07/17 04:42 ABG pCO2 57 mmHg (35-45) H 11/07/17 04:42 ABG pO2 93 mmHg (85-104) 11/07/17 04:42 ABG O2 Saturation 96 % (95-98) 11/07/17 04:42 - VTE Documentation of Mechanical Device: Intermittent pneumatic compression device Consult Discharge Plan - Plan [facility]errals: [facility] [Primary Care Provider] - 11/20/17 12:45 pm <Christopher Posada - Last Filed: 11/10/17 17:25> Date of Encounter: 11/10/17 - Constitutional Vitals: Temp Pulse Resp BP Pulse Ox 99.0 F 82 22 163/108 93 11/10/17 15:21 11/10/17 15:21 11/10/17 16:32 11/10/17 15:21 11/10/17 16:32 Internal Medicine: Result - Labs CBC & Chem 7: 11/10/17 04:00 11/10/17 04:00 Labs: Short CBC 11/10/17 Range/Units 04:00 WBC 20.8 H (4.3-11.1) K/mcL Hgb 12.2 L (12.9-16.9) g/dL Hct 38.6 (37.5-50.1) % Plt Count 163 (140-400) K/mcL Neutrophils # 19.2 H (1.6-8.9) K/mcL BMP 11/10/17 04:00 Sodium 144 Potassium 3.5 Chloride 108 H Carbon Dioxide 32 H BUN 28 H Creatinine 1.19 Glucose 158 H Calcium 8.3 L - ABG Interpretation ABG results: ABG ABG pH 7.32 pH Units (7.32-7.45) 11/07/17 04:42 ABG pCO2 57 mmHg (35-45) H 11/07/17 04:42 ABG pO2 93 mmHg (85-104) 11/07/17 04:42 ABG O2 Saturation 96 % (95-98) 11/07/17 04:42 - Attending Attestation I performed an independent interview and exam of this patient. Agree with the findings, assessment, and plan of Dr. Hurd, internal medicine resident. Agree with changing Zosyn to Augmentin to complete 7 days total therapy for pneumonia, possibly aspiration type. Also changing steroids to oral for his COPD exacerbation. Patient still is on 5 L of oxygen and will continue to monitor. Patient is currently receiving IV Lasix for acute on chronic systolic CHF and is symptomatically improving. He continues to diuresis and we will continue to diuresis renal function allows. Continue to wean off Precedex. His agitation appears to be improving. All else as per the note. We discussed the case in detail.
[2017-11-11] MEDS: Ipratropium/Albuterol Neb 3 ML IH SCH ×4 (04:17→22:34)
[2017-11-11] MEDS: *HR* Heparin 5,000 UNIT/ML VIAL SQ SCH ×2 (05:12→17:36)
[2017-11-11 05:34] LABS: Basophils # 0.1 K/mcL (0.0-0.2); Basophils % 0.3 %; Hematocrit 43.6 % (37.5-50.1); Immature Granulocytes % 3.5 % (0-4); Lymphocytes # 1.1 K/mcL (0.6-4.6); Lymphocytes % 4.8 %; Mean Corpuscular HGB Conc 31.9 g/dL (31.6-35.5); Mean Corpuscular Hemoglobin 28.7 pg (28.0-33.3); Mean Corpuscular Volume 90.1 fL (83.0-100.0); Mean Platelet Volume 11.5 fL (9.4-12.4); Monocytes # 1.7 K/mcL (0.0-1.3); Monocytes % 7.3 %; Neutrophils # 19.9 K/mcL (1.6-8.9); Nucleated Red Blood Cells 0.1 /100 WBC (0); Platelet Count 204 K/mcL (140-400); Red Blood Count 4.84 M/mcL (4.19-5.50); Red Cell Distribution Width 15.1 % (11.5-14.5); Segmented Neutrophils % 84.1 %
[2017-11-11 05:35] LABS: Hemoglobin 13.9 g/dL (12.9-16.9)
[2017-11-11 05:53] LABS: BUN/Creatinine Ratio 28 (6-26); Blood Urea Nitrogen 29 mg/dL (6-20); Calcium 8.5 mg/dL (8.6-10.3); Carbon Dioxide 35 mEq/L (23-29); Chloride 105 mEq/L (98-107); Glucose 134 mg/dL (70-105); Osmolality,Calculated 312 (280-300); Sodium 147 mEq/L (136-145); eGFR For African Americans > 60 (> 60); eGFR For Non-African Americans > 60 (> 60)
[2017-11-11] MEDS: Insulin LISPRO 300 UNITS/3 ML VIAL SQ SCH ×4 (07:25→20:26)
[2017-11-11] MEDS: predniSONE 20 MG TABLET PO SCH (07:55)
[2017-11-11] MEDS: Furosemide 20 MG TABLET PO SCH (07:55)
[2017-11-11] MEDS: Metoprolol XL (24 HR) Succ 25 MG TAB.ER.24H PO SCH (07:55)
[2017-11-11] MEDS: Nicotine 21 MG PATCH.TD24 TD SCH (07:55)
[2017-11-11 11:14] LABS: Magnesium 1.6 mg/dL (1.6-2.6); Phosphorous 2.6 mg/dL (2.7-4.5)
--- NOTE | 2017-11-11 13:28 | Internal Med Progress Note ---
<January Garvind - Last Filed: 11/11/17 13:26> Date of Encounter: 11/11/17 Time of Encounter: 13:26 - Assessment and plan (1) Pneumonia Current Visit: Yes Status: Acute Assessment and plan: Patient grew out sputum culture with strenophomonas maltophilia. Sensitive to Levaquin. We will start that today. We will stop Augmentin. Clinically, patient seems to be improving. We will possibly discharge tomorrow morning. Daughter is coming tomorrow morning as well. Qualifiers: Pneumonia type: due to unspecified organism Laterality: right Lung location: lower lobe of lung Qualified Code(s): J18.1 - Lobar pneumonia, unspecified organism (2) COPD exacerbation Current Visit: No Status: Acute Assessment and plan: This is the fourth day of steroids. We will provide the last dose tomorrow. (3) Cardiomyopathy Current Visit: No Status: Acute Assessment and plan: Was followed by cardiology. They state that patient does not need a LifeVest at this time as risk for arrhythmia is low. We will have patient follow-up with cardiology outpatient Qualifiers: Cardiomyopathy type: unspecified Qualified Code(s): I42.9 - Cardiomyopathy , unspecified (4) Sepsis Current Visit: Yes Status: Resolved Assessment and plan: Resolved. Treatment as above. Qualifiers: Sepsis type: sepsis due to unspecified organism Qualified Code(s): A41.9 - Sepsis, unspecified organism (5) Acute on chronic respiratory failure with hypoxia and hypercapnia Current Visit: Yes Status: Acute Assessment and plan: Patient continues to be on oxygen via nasal cannula. Not in any respiratory distress. (6) Acute on chronic systolic CHF (congestive heart failure) Current Visit: Yes Status: Acute Assessment and plan: Improving clinically. Patient is becoming hypernatremic and hypokalemic. I will hold tomorrow's dose of Lasix as he appears dry. Do not want to volume overload with IV fluids as he has significantly reduced ejection fraction (7) DVT prophylaxis Current Visit: Yes Status: Acute Assessment and plan: 5000 units of heparin subcutaneous every 12 hours. - Subjective Interval history: Patient did well overnight. Off the Precedex. Daughters post becoming tomorrow. Cardiology was spoken to regarding his low ejection fraction and they did not recommend utilization of a life vest outpatient. Patient becoming more hyponatremic. Clinically, patient appears dry. - Constitutional Vitals: Temp Pulse Resp BP Pulse Ox 98.0 F 83 16 167/114 99 11/11/17 11:50 11/11/17 11:50 11/11/17 11:45 11/11/17 11:50 11/11/17 11:50 General appearance: Present: cooperative, A&O X 3, pleasant, no acute distress, answers questions appropriately - Head Head exam: Present: atraumatic, normal inspection - ENT ENT exam: Present: mucous membranes dry - Neck Neck exam general surgery: Present: supple, trachea midline - Respiratory Respiratory exam: Present: CTAB. Absent: accessory muscle use, respiratory distress - Cardiovascular Cardiovascular exam: Present: RRR, +S1, +S2. Absent: JVD - GI/Abdominal GI/Abdominal exam: Present: soft, no peritoneal signs. Absent: rebound, rigid, tenderness - Extremities Exam Extremities exam: Absent: pedal edema Internal Medicine: Result - Labs CBC & Chem 7: 11/11/17 04:00 11/11/17 04:00 Labs: Short CBC 11/11/17 Range/Units 04:00 WBC 23.6 H (4.3-11.1) K/mcL Hgb 13.9 D (12.9-16.9) g/dL Hct 43.6 (37.5-50.1) % Plt Count 204 (140-400) K/mcL Neutrophils # 19.9 H (1.6-8.9) K/mcL BMP 11/11/17 04:00 Sodium 147 H Potassium 3.0 L Chloride 105 Carbon Dioxide 35 H BUN 29 H Creatinine 1.05 Glucose 134 H Calcium 8.5 L - ABG Interpretation ABG results: ABG ABG pH 7.32 pH Units (7.32-7.45) 11/07/17 04:42 ABG pCO2 57 mmHg (35-45) H 11/07/17 04:42 ABG pO2 93 mmHg (85-104) 11/07/17 04:42 ABG O2 Saturation 96 % (95-98) 11/07/17 04:42 - VTE Documentation of Mechanical Device: Intermittent pneumatic compression device Consult Discharge Plan - Plan [facility]errals: [facility] Care Provider[facility] - 11/20/17 12:45 pm <Christopher Posada - Last Filed: 11/11/17 15:51> Date of Encounter: 11/11/17 - Constitutional Vitals: Temp Pulse Resp BP Pulse Ox 98.0 F 87 16 137/85 96 11/11/17 11:50 11/11/17 13:00 11/11/17 13:00 11/11/17 13:00 11/11/17 13:00 Internal Medicine: Result - Labs CBC & Chem 7: 11/11/17 04:00 11/11/17 04:00 Labs: Short CBC 11/11/17 Range/Units 04:00 WBC 23.6 H (4.3-11.1) K/mcL Hgb 13.9 D (12.9-16.9) g/dL Hct 43.6 (37.5-50.1) % Plt Count 204 (140-400) K/mcL Neutrophils # 19.9 H (1.6-8.9) K/mcL BMP 11/11/17 04:00 Sodium 147 H Potassium 3.0 L Chloride 105 Carbon Dioxide 35 H BUN 29 H Creatinine 1.05 Glucose 134 H Calcium 8.5 L - ABG Interpretation ABG results: ABG ABG pH 7.32 pH Units (7.32-7.45) 11/07/17 04:42 ABG pCO2 57 mmHg (35-45) H 11/07/17 04:42 ABG pO2 93 mmHg (85-104) 11/07/17 04:42 ABG O2 Saturation 96 % (95-98) 11/07/17 04:42 - Attending Attestation I performed an independent interview and examine this patient. I agree with the findings, assessment, and plan of Dr. Hurd, internal medicine epidemiology intern. Suspect patient is mildly overly diuresed area and we are holding Lasix and encourage fluids. With regards to his pneumonia, his white blood cell count has increased and his sputum is growing out stenotrophomonas. Agree with changing to Levaquin. She otherwise is clinically improving and his oxygen requirements are decreased. He finished his steroids tomorrow. His elevated white blood cell count could be due to steroids as well. All else as outlined in the above note, which reflects my input. Gen. no acute distress awake alert nor 3 Skin warm and dry Neck supple Lungs with diminished breath sounds at the bases bilaterally, crackles Heart regular rate and rhythm Abdomen nontender Extremities no significant edema Neurological nonfocal.
[2017-11-11] MEDS ORDERED: levoFLOXacin 750 MG TABLET PO SCH (13:30)
[2017-11-11] MEDS: Sulfamethoxazole/Trimeth DS 1 EACH TABLET PO SCH (20:19)
[2017-11-12] MEDS: Ipratropium/Albuterol Neb 3 ML IH SCH ×2 (04:05→10:29)
[2017-11-12] MEDS: *HR* Heparin 5,000 UNIT/ML VIAL SQ SCH (07:48)
[2017-11-12] MEDS: predniSONE 20 MG TABLET PO SCH (07:50)
[2017-11-12] MEDS: Metoprolol XL (24 HR) Succ 25 MG TAB.ER.24H PO SCH (07:50)
[2017-11-12] MEDS: Insulin LISPRO 300 UNITS/3 ML VIAL SQ SCH ×2 (07:51→12:38)
[2017-11-12] MEDS: Nicotine 21 MG PATCH.TD24 TD SCH (07:51)
[2017-11-12] MEDS: Sulfamethoxazole/Trimeth DS 1 EACH TABLET PO SCH (07:51)
[2017-11-12 09:00] LABS: Basophils # 0.1 K/mcL (0.0-0.2); Basophils % 0.7 %; Eosinophils # 0.1 K/mcL (0.0-0.6); Eosinophils % 0.5 %; Hematocrit 46.8 % (37.5-50.1); Hemoglobin 14.8 g/dL (12.9-16.9); Immature Granulocytes % 3.5 % (0-4); Lymphocytes # 2.5 K/mcL (0.6-4.6); Lymphocytes % 13.8 %; Mean Corpuscular HGB Conc 31.6 g/dL (31.6-35.5); Mean Corpuscular Hemoglobin 28.3 pg (28.0-33.3); Mean Corpuscular Volume 89.5 fL (83.0-100.0); Mean Platelet Volume 11.3 fL (9.4-12.4); Monocytes # 1.9 K/mcL (0.0-1.3); Monocytes % 10.3 %; Neutrophils # 13.1 K/mcL (1.6-8.9); Platelet Count 184 K/mcL (140-400); Red Blood Count 5.23 M/mcL (4.19-5.50); Red Cell Distribution Width 15.1 % (11.5-14.5); Segmented Neutrophils % 71.2 %
[2017-11-12 09:26] LABS: BUN/Creatinine Ratio 26 (6-26); Blood Urea Nitrogen 28 mg/dL (6-20); Calcium 8.4 mg/dL (8.6-10.3); Carbon Dioxide 35 mEq/L (23-29); Chloride 103 mEq/L (98-107); Glucose 80 mg/dL (70-105); Osmolality,Calculated 298 (280-300); Phosphorous 3.1 mg/dL (2.7-4.5); Potassium 3.2 mEq/L (3.5-5.1); Sodium 142 mEq/L (136-145); eGFR For African Americans > 60 (> 60); eGFR For Non-African Americans > 60 (> 60)
--- NOTE | 2017-11-12 09:54 | Discharge Summary ---
<January Garvind - Last Filed: 11/12/17 13:03> Date of Encounter: 11/12/17 Time of Encounter: 09:50 - Discharge Diagnosis (1) Pneumonia Priority: Primary Status: Acute Qualifiers: Pneumonia type: due to unspecified organism Laterality: right Lung location: lower lobe of lung Qualified Code(s): J18.1 - Lobar pneumonia, unspecified organism (2) COPD exacerbation Priority: Primary Status: Acute (3) Cardiomyopathy Priority: Primary Status: Acute Qualifiers: Cardiomyopathy type: unspecified Qualified Code(s): I42.9 - Cardiomyopathy , unspecified (4) Sepsis Priority: Primary Status: Resolved Qualifiers: Sepsis type: sepsis due to unspecified organism Qualified Code(s): A41.9 - Sepsis, unspecified organism (5) Acute on chronic respiratory failure with hypoxia and hypercapnia Priority: Primary Status: Acute (6) Acute on chronic systolic CHF (congestive heart failure) Priority: Primary Status: Acute (7) DVT prophylaxis Priority: Secondary Status: Acute Hospital course: Mr. Brink is a 51 year old male with a past admission COPD, GERD, hypertension who presented to the emergency department by palomo as he was unresponsive on . Patient was admitted to the hospital and left AGAINST MEDICAL ADVICE on 11/04/2017 for where he was being treated for an STEMI, CHF, pneumonia, sepsis. Patient was having acute respiratory failure with hypercapnia noted to be having an oxygen saturation in the low 70s. Patient was intubated. He was placed in the intensive care unit for further management. Patient was given vancomycin and Zosyn initially. He had a chest x-ray which revealed interstitial opacities bilaterally and a stable asymmetric airspace opacity of the right base. Patient recovered clinically, and was extubated. Patient was then transferred to stepdown. Patient had a sputum culture that grew stenotrophomonas maltophilia which was susceptible to Bactrim. Patient is being sent home on Bactrim. He also was given a five-day course of steroids. This will extend 2 more days at home as well. While here, patient was seen by cardiology as he has an ejection fraction on transthoracic echocardiogram of 30-35%. Cardiology did not recommend ICD placement at that time as his heart catheterization did not reveal any evidence of ischemia. Patient was placed on beta kelin, NORAH inhibitor, Lasix, as well as potassium supplementation. Patient has progressed to baseline and is now on his current regimen of oxygen via nasal cannula. Daughter has come from [place] to pick him up from the hospital. Patient has no complaints today. He is hemodynamically stable. We will discharge patient home with follow-up with his primary care provider at a scheduled appointment on 11/20/2017. Head CT 11/06/17 06:38 IMPRESSION: No acute intracranial abnormality. Evaluation is mildly limited due to motion artifact and prominent beam hardening artifact. Left maxillary sinusitis is noted. D/ / 11/06/2017 08:13:26 Paul Mejia MD / crissy Interpreting Provider: Paul Mejia MD Chest X-Ray 11/06/17 09:09 IMPRESSION: 1. Endotracheal tube has been advanced, now positioned approximately 7 cm above the doretha. 2. NG tube present with side port and tip in the body of the stomach. 3. Re-demonstration of increased interstitial opacities bilaterally, along with stable asymmetric airspace opacity at the right base. These findings are superimposed on emphysema. D/ / 11/06/2017 09:25:45 Paul Mejia MD / Flavia Davalos Interpreting Provider: Paul Mejia MD - Time Spent with Patient Total time spent providing and/or coordinating discharge services: - Discharge Medications Prescriptions: Furosemide [Lasix] 20 mg PO DAILY #30 tablet Lisinopril [Zestril] 5 mg PO DAILY #30 tablet Metoprolol XL (24 HR) Succ [Toprol Xl] 12.5 mg PO DAILY #30 tab.er.24h Potassium Chloride 10 meq PO DAILY #30 tab.er.prt predniSONE [PredniSONE] 40 mg PO DAILY #4 tablet Sulfamethoxazole/Trimeth DS [Bactrim Ds] 1 each PO BID #14 tablet Home Medications: Albuterol Sulfate [Albuterol Inhaler] 2 puff IH Q6HR PRN 09/25/17 [History] Budesonide/Formoterol 160/4.5 [Symbicort 160/4.5] 1 puff IH BIDR 09/25/17 [ History] Tamsulosin HCl [Flomax] 0.4 mg PO DAILY 09/25/17 [History] Ipratropium/Albuterol Neb [Duoneb] 3 ml IH BID PRN 11/03/17 [History] Loratadine [Allergy Relief] 10 mg PO DAILY PRN 11/03/17 [History] Oxygen 2 l NS CONT 11/03/17 [History] traZODone [TraZODone] 50 mg PO HS PRN 11/03/17 [History] Furosemide [Lasix] 20 mg PO DAILY #30 tablet 11/12/17 [Rx] Lisinopril [Zestril] 5 mg PO DAILY #30 tablet 11/12/17 [Rx] Metoprolol XL (24 HR) Succ [Toprol Xl] 12.5 mg PO DAILY #30 tab.er.24h 11/12/17 [Rx] Potassium Chloride 10 meq PO DAILY #30 tab.er.prt 11/12/17 [Rx] Sulfamethoxazole/Trimeth DS [Bactrim Ds] 1 each PO BID #14 tablet 11/12/17 [Rx] predniSONE [PredniSONE] 40 mg PO DAILY #4 tablet 11/12/17 [Rx] Allergies/Adverse Reactions: 3 Allergy/AdvReac Type Severity Reaction Status Date / Time No Known Allergies Allergy Verified 08/09/15 23:34 Date of admission: 11/06/17 11:38 [facility] care physician: [facility] Consults: 11/07/17 07:49 Consult to Cardiology [CONS] Routine Comment: Consulting Provider: Cardiology Reta Reason for Consult: NSTEMI, NONISCHEMIC CM Call Completed: Yes 11/08/17 08:29 Consult to Diplomatic Interpreter/Translator [CONS] Stat Reason for Consult: plan of care, drug abuse resources - Constitutional Vitals: Temp Pulse Resp BP Pulse Ox 98.9 F 93 20 144/101 92 11/12/17 07:45 11/12/17 07:45 11/12/17 07:45 11/12/17 07:45 11/12/17 07:45 General appearance: Present: cooperative, A&O X 3, pleasant, no acute distress, answers questions appropriately - Head Head exam: Present: atraumatic, normal inspection - ENT ENT exam: Present: normal exam - Respiratory Respiratory exam: Present: CTAB - Cardiovascular Cardiovascular exam: Present: RRR, +S1, +S2. Absent: diastolic murmur, rubs, systolic murmur - GI/Abdominal GI/Abdominal exam: Present: soft, no peritoneal signs. Absent: rebound, rigid, tenderness - Extremities Exam Extremities exam: Absent: calf tenderness, pedal edema - Patient Status Disposition: Home, Self-Care Condition: Good Functional capacity at discharge: independent ambulation Overall status at discharge: patient is progressing back to baseline - Discharge Instructions Instructions: Heart Failure (DC), How to Stop Smoking (GEN), Pneumonia (DC) Follow [facility] With: [facility]Primary Care Provider[facility] - 11/20/17 12:45 pm Additional Instructions: Follow-up by going to your appointment with your primary care provider on November 20. Do not use any drugs that are prescribed to you, alcohol, tobacco. Take all your medications as prescribed Return to the emergency department if you develop any new symptoms or if you have worsening of your current symptoms. - Diet and Activity Activity: increase activity as tolerated Diet: low salt diet - VTE Documentation of Mechanical Device: Intermittent pneumatic compression device <Christopher Posada - Last Filed: 11/12/17 16:50> Date of Encounter: 11/12/17 Hospital course: Mr. Brink is a 51 year old male - Time Spent with Patient Total time spent providing and/or coordinating discharge services: Date of admission: 11/06/17 11:38 Primary care physician: PCP [facility] Consults: 11/07/17 07:49 Consult to Cardiology [CONS] Routine Comment: Consulting Provider: Cardiology Reta Reason for Consult: NSTEMI, NONISCHEMIC CM Call Completed: Yes 11/08/17 08:29 Consult to Diplomatic Interpreter/Translator [CONS] Stat Reason for SW Consult: plan of care, drug abuse resources - Constitutional Vitals: Temp Pulse Resp BP Pulse Ox 97.7 F 106 19 133/107 93 11/12/17 11:34 11/12/17 11:48 11/12/17 11:34 11/12/17 11:34 11/12/17 11:34 - Attending Attestation I performed an independent interview and examine this patient. I agree with the findings, assessment and plan of Dr. Hurd, internal medicine learning and development intern. Patient did well and his CHF was felt to be Dictated by Paul nelson. He continues on beta kelin NORAH inhibitor and Lasix. He will also need ongoing potassium supplementation. Kidney Bactrim for general troponin Ilene's maltophilia bronchitis versus pneumonia. Patient will need close cardiology follow-up. CHF instructions were provided and explained to the patient. Please able see cardiac recovery. If not he may need an ICD in the future. Patient otherwise was doing well and deemed stable for discharge. All else as outlined per the discharge summary. 37 minutes spent on discharge and coordination of care.
[2017-11-12 11:37] VITALS: BP 133/107
== END 2017-11-12 14:13 | disposition home or self-care (01) | DRG 720 ==
LOC: EMEROO 06:27 → ICNU 11:38 → 2NNU 11-08 18:52
PROVIDERS: ADMIT Internal Medicine Pulmonary Disease; ATTEND Internal Medicine

== ENCOUNTER 2017-11-20 08:36 | Inpatient (IN) ==
[2017-11-20] MEDS ORDERED: methylPREDNISolone 125 MG/2 ML VIAL IVP ONE (08:45)
[2017-11-20] MEDS ORDERED: Ipratropium/Albuterol Neb 3 ML IH ONE (08:45)
[2017-11-20] MEDS ORDERED: 0.9 % Sodium Chloride 1,000 ML IVC ONE ×2 (08:57→10:17)
[2017-11-20] MEDS ORDERED: 0.9 % Sodium Chloride 1,000 ML ONE (08:58)
--- NOTE | 2017-11-20 09:05 | Emergency Department Note ---
Disposition Clinical Impression: COPD exacerbation, MONSERRAT (acute kidney injury) Chest pain Qualifiers: Chest pain type: unspecified Qualified Code(s): R07.9 - Chest pain, unspecified Hypotension Qualifiers: Hypotension type: unspecified hypotension type Qualified Code(s): I95.9 - Hypotension, unspecified Disposition: Admitted As Inpatient Condition: Fair General Adult HPI - General Chief complaint: ED Chest Pain Stated complaint: CP Time Seen by Provider: 11/20/17 08:39 Source: patient, EMS - History of Present Illness Pain Scale: 6 - Related Data Home Medications Medication Instructions Recorded Confirmed Albuterol Sulfate [Albuterol 2 puff IH Q6HR PRN 09/25/17 11/20/17 Inhaler] Budesonide/Formoterol 160/4.5 1 puff IH BIDR 09/25/17 11/20/17 [Symbicort 160/4.5] Tamsulosin HCl [Flomax] 0.4 mg PO DAILY 09/25/17 11/20/17 Ipratropium/Albuterol Neb [Duoneb] 3 ml IH BID PRN 11/03/17 11/20/17 Loratadine [Allergy Relief] 10 mg PO DAILY PRN 11/03/17 11/20/17 Oxygen 2 l NS CONT 11/03/17 11/20/17 traZODone [TraZODone] 50 mg PO HS PRN 11/03/17 11/20/17 Previous Rx's Medication Instructions Recorded Furosemide [Lasix] 20 mg PO DAILY #30 tablet 11/12/17 Lisinopril [Zestril] 5 mg PO DAILY #30 tablet 11/12/17 Metoprolol XL (24 HR) Succ [Toprol 12.5 mg PO DAILY #30 tab.er.24h 11/12/17 Xl] Potassium Chloride 10 meq PO DAILY #30 tab.er.prt 11/12/17 Allergies Allergy/AdvReac Type Severity Reaction Status Date / Time No Known Allergies Allergy Verified 08/09/15 23:34 Past Medical History - Past Medical History Medical history: Reports: CHF, COPD, GERD, hypertension, other Surgical history: Reports: non-contributory, other Psychiatric history: Reports: no psych history - Social History Smoking Status: Current every day smoker Smokeless Tobacco Status: No Alcohol use: Reports: none Drug use: Reports: none Physical Exam - General General appearance: alert Course Vital Signs Temperature 97.6 F 11/20/17 08:38 Pulse Rate 78 11/20/17 08:38 Respiratory Rate 19 11/20/17 08:38 Blood Pressure 80/62 11/20/17 08:38 O2 Sat by Pulse Oximetry 91 11/20/17 08:38 Temperature 97.6 F 11/20/17 08:38 Pulse Rate 62 11/20/17 14:23 Respiratory Rate 22 11/20/17 14:23 Blood Pressure 88/63 11/20/17 14:23 O2 Sat by Pulse Oximetry 93 11/20/17 14:23 Oxygen Delivery Oxygen Delivery Nasal Cannula Medical Decision Making - Lab Data Result diagrams: 11/20/17 09:04 11/20/17 09:04 Lab Results 11/20/17 11/20/17 11/20/17 Range/Units 09:04 09:04 09:04 WBC 12.9 H (4.3-11.1) K/mcL RBC 4.30 (4.19-5.50) M/mcL Hgb 12.2 L (12.9-16.9) g/dL Hct 37.9 (37.5-50.1) % MCV 88.1 (83.0-100.0) fL MCH 28.4 (28.0-33.3) pg MCHC 32.2 (31.6-35.5) g/dL RDW 15.7 H (11.5-14.5) % Plt Count 135 L (140-400) K/mcL MPV 10.9 (9.4-12.4) fL Immature Gran % 1.4 (0-4) % Seg Neutrophils % 70.2 % Lymphocytes % 13.5 % Monocytes % 12.7 % Eosinophils % 1.9 % Basophils % 0.3 % Neutrophils # 9.0 H (1.6-8.9) K/mcL Lymphocytes # 1.7 (0.6-4.6) K/mcL Monocytes # 1.6 H (0.0-1.3) K/mcL Eosinophils # 0.2 (0.0-0.6) K/mcL Basophils # 0.0 (0.0-0.2) K/mcL Sodium 131 L (136-145) mEq/L Potassium 4.7 (3.5-5.1) mEq/L Chloride 100 (98-107) mEq/L Carbon Dioxide 26 (23-29) mEq/L BUN 33 H (6-20) mg/dL Creatinine 1.76 H (0.70-1.30) mg/dL Est GFR ( Amer) 50 L (> 60) Est GFR (Non-Af Amer) 41 L (> 60) BUN/Creatinine Ratio 19 (6-26) Glucose 101 (70-105) mg/dL Calculated Osmolality 279 L (280-300) Lactic Acid (0.5-2.2) mmol/L Calcium 8.3 L (8.6-10.3) mg/dL Troponin I 0.03 (< 0.04) ng/mL B-Natriuretic Peptide 13 (Less than 100) pg/mL 11/20/17 Range/Units 10:31 WBC (4.3-11.1) K/mcL RBC (4.19-5.50) M/mcL Hgb (12.9-16.9) g/dL Hct (37.5-50.1) % MCV (83.0-100.0) fL MCH (28.0-33.3) pg MCHC (31.6-35.5) g/dL RDW (11.5-14.5) % Plt Count (140-400) K/mcL MPV (9.4-12.4) fL Immature Gran % (0-4) % Seg Neutrophils % % Lymphocytes % % Monocytes % % Eosinophils % % Basophils % % Neutrophils # (1.6-8.9) K/mcL Lymphocytes # (0.6-4.6) K/mcL Monocytes # (0.0-1.3) K/mcL Eosinophils # (0.0-0.6) K/mcL Basophils # (0.0-0.2) K/mcL Sodium (136-145) mEq/L Potassium (3.5-5.1) mEq/L Chloride (98-107) mEq/L Carbon Dioxide (23-29) mEq/L BUN (6-20) mg/dL Creatinine (0.70-1.30) mg/dL Est GFR ( Amer) (> 60) Est GFR (Non-Af Amer) (> 60) BUN/Creatinine Ratio (6-26) Glucose (70-105) mg/dL Calculated Osmolality (280-300) Lactic Acid 0.6 (0.5-2.2) mmol/L Calcium (8.6-10.3) mg/dL Troponin I (< 0.04) ng/mL B-Natriuretic Peptide (Less than 100) pg/mL Attestation Statement - Attestation Attestation: I examined this patient and my medical decision-making was reviewed with the GENERAL COUNSEL/PA/Advanced Practice Nurse/Resident Physician. I agree with the documented findings, disposition and treatment plan as described except to the extent set forth below. I did see the patient immediately upon arrival and also spoke with the paramedics and the patient was recently discharged from the hospital and he had been here in the intensive care unit and he presents with hypoxemia and hypotension and chest pain and shortness of breath. I did see the patient spoke with them examine home. He does have decreased breath sounds with crackles bilaterally, heart is regular without murmur did testing is pending. Will be watched closely and will be admitted to the hospital. 904 Patient did receive 1 L of fluid and did have a transient drop in blood pressure to 58 systolic but is now 88 systolic and received more IV fluids. Test results are pending. I did just see him again minutes ago. 954 I did review the patient's EKG showing normal sinus rhythm at the rate of 74 and evidence of lateral T-wave which was present on a previous EKG from November 06. Current SBP 80 and sat of 90 on NC O2 1033
[2017-11-20 09:20] LABS: Hematocrit 37.9 % (37.5-50.1); Hemoglobin 12.2 g/dL (12.9-16.9); Immature Granulocytes % 1.4 % (0-4); Lymphocytes % 13.5 %; Mean Corpuscular HGB Conc 32.2 g/dL (31.6-35.5); Mean Corpuscular Hemoglobin 28.4 pg (28.0-33.3); Mean Corpuscular Volume 88.1 fL (83.0-100.0); Mean Platelet Volume 10.9 fL (9.4-12.4); Monocytes % 12.7 %; Platelet Count 135 K/mcL (140-400); Red Cell Distribution Width 15.7 % (11.5-14.5); Segmented Neutrophils % 70.2 %
[2017-11-20 09:21] LABS: Basophils % 0.3 %; Eosinophils # 0.2 K/mcL (0.0-0.6); Eosinophils % 1.9 %; Lymphocytes # 1.7 K/mcL (0.6-4.6); Monocytes # 1.6 K/mcL (0.0-1.3)
[2017-11-20 09:38] LABS: Calcium 8.3 mg/dL (8.6-10.3); Potassium 4.7 mEq/L (3.5-5.1)
[2017-11-20 09:39] LABS: Troponin I 0.03 ng/mL (< 0.04)
[2017-11-20] MEDS ORDERED: Piperacillin/Tazobactam 3.375 GM in 0.9 % Sodium Chloride Mini Bag 100 ML IVPB ONE (10:22)
--- NOTE | 2017-11-20 10:36 | Emergency Department Note ---
Disposition Clinical Impression: COPD exacerbation, MONSERRAT (acute kidney injury) Chest pain Qualifiers: Chest pain type: unspecified Qualified Code(s): R07.9 - Chest pain, unspecified Hypotension Qualifiers: Hypotension type: unspecified hypotension type Qualified Code(s): I95.9 - Hypotension, unspecified Disposition: Admitted As Inpatient Condition: Fair [facility] Care Provider[facility] - Forms: ED Satisfaction Letter Time of Disposition: 13:04 General Adult HPI - General Stated complaint: CP Time Seen by Provider: 11/20/17 08:39 Source: patient, EMS Mode of arrival: EMS Limitations: no limitations Nursing Notes Reviewed: Yes Vital Signs Reviewed: Yes - History of Present Illness HPI Narrative: Patient is a 51-year-old male who presents to [facility] ED with a chief complaint of chest pain. States his symptoms have been present for the last several days. Denies any nausea, vomiting, fever or chills. No abdominal pain, problems with urination or bowel movement. Patient did have a recent heart catheterization approximately one week ago. States there were no stents placed in his heart. Upon examining his chart, he was found to have cardiomyopathy with an ejection fraction of 20%. He was seen for sepsis, pneumonia, COPD exacerbation. Patient was given 2 breathing treatments on route today. States he is feeling better after receiving breathing treatments. His initial blood pressure here is 80s over 60s. Denies any areas of bleeding. Onset (ago): day(s) Location: chest Radiation: non-radiation Pain Severity: moderate Pain Scale: 6 Consistency: constant Improves with: nothing Worsens with: nothing Associated symptoms: Reports: chest pain, shortness of breath. Denies: fever/ chills, loss of appetite, malaise, nausea/vomiting Treatments Prior to Arrival: none - Related Data Home Medications Medication Instructions Recorded Confirmed Albuterol Sulfate [Albuterol 2 puff IH Q6HR PRN 09/25/17 11/20/17 Inhaler] Budesonide/Formoterol 160/4.5 1 puff IH BIDR 09/25/17 11/20/17 [Symbicort 160/4.5] Tamsulosin HCl [Flomax] 0.4 mg PO DAILY 09/25/17 11/20/17 Ipratropium/Albuterol Neb [Duoneb] 3 ml IH BID PRN 11/03/17 11/20/17 Loratadine [Allergy Relief] 10 mg PO DAILY PRN 11/03/17 11/20/17 Oxygen 2 l NS CONT 11/03/17 11/20/17 traZODone [TraZODone] 50 mg PO HS PRN 11/03/17 11/20/17 Previous Rx's Medication Instructions Recorded Furosemide [Lasix] 20 mg PO DAILY #30 tablet 11/12/17 Lisinopril [Zestril] 5 mg PO DAILY #30 tablet 11/12/17 Metoprolol XL (24 HR) Succ [Toprol 12.5 mg PO DAILY #30 tab.er.24h 11/12/17 Xl] Potassium Chloride 10 meq PO DAILY #30 tab.er.prt 11/12/17 Allergies Allergy/AdvReac Type Severity Reaction Status Date / Time No Known Allergies Allergy Verified 08/09/15 23:34 All systems ED: reviewed and negative except as stated. Past Medical History - Past Medical History Attestation: Yes The following information was validated with the patient. Source: patient Medical history: Reports: CHF, COPD, GERD, hypertension, other Surgical history: Reports: non-contributory, other Psychiatric history: Reports: no psych history - Social History Smoking Status: Current every day smoker Smokeless Tobacco Status: No Alcohol use: Reports: none Drug use: Reports: none Physical Exam - General Limitations: no limitations General appearance: alert - Head Head exam: atraumatic, normocephalic, normal inspection - Eye Eye exam: Present: normal appearance, PERRL, EOMI - ENT ENT exam: normal exam, normal oropharynx, mucous membranes moist - Neck Neck exam: Present: normal inspection, full ROM, trachea midline, other (no jvd) - Chest Chest inspection: Present: normal inspection, symmetric chest wall rise - Respiratory Respiratory exam: Present: other (Decreased breath sounds bilaterally) - Cardiovascular Cardiovascular exam: Present: regular rate, normal rhythm, normal heart sounds - Abdominal Exam Abdominal exam: Present: soft, Non-Tender. Absent: tenderness, distention, guarding, rebound, rigidity - Extremities Exam Extremities exam: Present: normal inspection, full ROM, other (pulses 2+ radial/ PT b/l). Absent: tenderness, pedal edema - Neurological Exam Neurological exam: Present: alert, oriented X3. Absent: motor sensory deficit - Psychiatric Psychiatric exam: Present: normal affect, normal mood - Skin Skin exam: Present: warm, dry, intact, normal color Course Course Narrative: Patient seen and examined. Chest pain with some difficulty breathing and history of COPD. Already received 2 DuoNeb's. We will give another DuoNeb here and 125 mg Solu-Medrol. His blood pressure is 80s over 60s. We will give a liter IV fluid bolus. We will give a second bolus following this. We will continually reassessed patient since he has a risk for heart failure due to his low ejection fraction. However we will treat as sepsis since he was just recently here for this and has low blood pressures. We will get blood cultures and cover with vancomycin and Zosyn. - Reevaluation(s) Reevaluation #1: Patient has been persistently hypotensive with pressures 80s over 50s. I discussed with survey rodman who suggested albumin. We will also get patient started with a low dose Levophed to see if this helps with his BP. We will also order a VQ scan to rule out any signs of pulmonary embolus. I am unsure if this is a combination of patient being recently placed on multiple blood pressure medications including an NORAH inhibitor, metoprolol and Lasix, or if there is underlying infection that is blunting his vital signs are on the beta kelin. Patient accepted by survey rodman Dr. Jones for possible sepsis, hypotension, MONSERRAT, chest pain.. Time: 13:03 Vital Signs Temperature 97.6 F 11/20/17 08:38 Pulse Rate 78 11/20/17 08:38 Respiratory Rate 19 11/20/17 08:38 Blood Pressure 80/62 11/20/17 08:38 O2 Sat by Pulse Oximetry 91 11/20/17 08:38 Temperature 97.6 F 11/20/17 08:38 Pulse Rate 61 11/20/17 13:38 Respiratory Rate 21 11/20/17 13:38 Blood Pressure 82/55 11/20/17 13:38 O2 Sat by Pulse Oximetry 91 11/20/17 13:38 Oxygen Delivery Oxygen Delivery Nasal Cannula Medical Decision Making - Medical Records Medical records reviewed: Yes I reviewed the patient's medical records. - Lab Data Lab results reviewed: Yes I reviewed the patient's lab results. Result diagrams: 11/20/17 09:04 11/20/17 09:04 Lab Results 11/20/17 11/20/17 11/20/17 Range/Units 09:04 09:04 09:04 WBC 12.9 H (4.3-11.1) K/mcL RBC 4.30 (4.19-5.50) M/mcL Hgb 12.2 L (12.9-16.9) g/dL Hct 37.9 (37.5-50.1) % MCV 88.1 (83.0-100.0) fL MCH 28.4 (28.0-33.3) pg MCHC 32.2 (31.6-35.5) g/dL RDW 15.7 H (11.5-14.5) % Plt Count 135 L (140-400) K/mcL MPV 10.9 (9.4-12.4) fL Immature Gran % 1.4 (0-4) % Seg Neutrophils % 70.2 % Lymphocytes % 13.5 % Monocytes % 12.7 % Eosinophils % 1.9 % Basophils % 0.3 % Neutrophils # 9.0 H (1.6-8.9) K/mcL Lymphocytes # 1.7 (0.6-4.6) K/mcL Monocytes # 1.6 H (0.0-1.3) K/mcL Eosinophils # 0.2 (0.0-0.6) K/mcL Basophils # 0.0 (0.0-0.2) K/mcL Sodium 131 L (136-145) mEq/L Potassium 4.7 (3.5-5.1) mEq/L Chloride 100 (98-107) mEq/L Carbon Dioxide 26 (23-29) mEq/L BUN 33 H (6-20) mg/dL Creatinine 1.76 H (0.70-1.30) mg/dL Est GFR ( Amer) 50 L (> 60) Est GFR (Non-Af Amer) 41 L (> 60) BUN/Creatinine Ratio 19 (6-26) Glucose 101 (70-105) mg/dL Calculated Osmolality 279 L (280-300) Lactic Acid (0.5-2.2) mmol/L Calcium 8.3 L (8.6-10.3) mg/dL Troponin I 0.03 (< 0.04) ng/mL B-Natriuretic Peptide 13 (Less than 100) pg/mL 11/20/17 Range/Units 10:31 WBC (4.3-11.1) K/mcL RBC (4.19-5.50) M/mcL Hgb (12.9-16.9) g/dL Hct (37.5-50.1) % MCV (83.0-100.0) fL MCH (28.0-33.3) pg MCHC (31.6-35.5) g/dL RDW (11.5-14.5) % Plt Count (140-400) K/mcL MPV (9.4-12.4) fL Immature Gran % (0-4) % Seg Neutrophils % % Lymphocytes % % Monocytes % % Eosinophils % % Basophils % % Neutrophils # (1.6-8.9) K/mcL Lymphocytes # (0.6-4.6) K/mcL Monocytes # (0.0-1.3) K/mcL Eosinophils # (0.0-0.6) K/mcL Basophils # (0.0-0.2) K/mcL Sodium (136-145) mEq/L Potassium (3.5-5.1) mEq/L Chloride (98-107) mEq/L Carbon Dioxide (23-29) mEq/L BUN (6-20) mg/dL Creatinine (0.70-1.30) mg/dL Est GFR ( Amer) (> 60) Est GFR (Non-Af Amer) (> 60) BUN/Creatinine Ratio (6-26) Glucose (70-105) mg/dL Calculated Osmolality (280-300) Lactic Acid 0.6 (0.5-2.2) mmol/L Calcium (8.6-10.3) mg/dL Troponin I (< 0.04) ng/mL B-Natriuretic Peptide (Less than 100) pg/mL - Radiology Data Radiology results reviewed: Yes I reviewed the patient's radiology results. Chest X-Ray 11/20/17 08:46 IMPRESSION: Moderate to severe emphysema. No superimposed acute process. D/ / 11/20/2017 10:00:27 Paul Mejia MD / ami Interpreting Provider: Paul Mejia MD - EKG Data EKG #1 EKG attestation: Yes I reviewed and interpreted this EKG. EKG results narrative: EKG done at 844 shows normal sinus rhythm with a rate of [address] elevation. EKG appears unchanged from prior EKG done 11/06/2017.
[2017-11-20] MEDS ORDERED: Albumin 25% 25gram/100mL 25 GM/100 ML IV.SOLN IVPB ONE (12:23)
[2017-11-20] MEDS ORDERED: Norepinephrine 4 MG in D5% in Water 250 ML IVC SCH (12:30)
[2017-11-20] MEDS ORDERED: Acetaminophen 325 MG TABLET PO PRN (13:32)
[2017-11-20] MEDS ORDERED: Naloxone 0.4 MG/ML INJ IVP PRN (13:32)
[2017-11-20] MEDS ORDERED: Loratadine 10 MG TABLET PO PRN (13:34)
[2017-11-20] MEDS ORDERED: Aminoglycoside Consult 1 EACH MC ONE (13:49)
--- NOTE | 2017-11-20 13:54 | Pulmonology History & Physical ---
<Rodney Yu - Last Filed: 11/20/17 16:28> Date of Encounter: 11/20/17 Time of Encounter: 13:54 Assessment and Plan (1) Hypotension Current visit: Yes Status: Acute Patient presents with hypotension 80/60 refractory to IV fluid resuscitation with 2 L. Unclear etiology however he was recently placed on a beta kelin, diuretic and NORAH inhibitor after recent hospitalization. He is mentating appropriately and maintaining a map greater than 60. He was briefly on pressors in the emergency department which were stopped and he was brought to the ICU. Patient given 25 g of 25% albumin. Plan to continue aliquots of albumin to maintain a map greater than 60. We will hold his antihypertensives and beta kelin at this time. Qualifiers: Hypotension type: unspecified hypotension type Qualified Code(s): I95.9 - Hypotension, unspecified (2) Acute renal insufficiency Current visit: No Status: Resolved Creatinine is 1.76 from 1.07. Likely secondary to hypoperfusion from hypotension. We will continue to trend daily BMP. Goal map greater than 60. Hold nephrotoxic agents. (3) Cardiomyopathy Current visit: No Status: Chronic History of nonischemic cardiomyopathy. Left heart catheterization 11/04/17 with angiographically normal coronary arteries. Severe left ventricular dysfunction with an ejection fraction of 20%. At this point we will hold his beta kelin and NORAH inhibitor in the setting of hypotension. Qualifiers: Cardiomyopathy type: unspecified Qualified Code(s): I42.9 - Cardiomyopathy , unspecified (4) COPD (chronic obstructive pulmonary disease) Current visit: No Status: Chronic Continue duo nebs, Symbicort Qualifiers: COPD type: unspecified COPD Qualified Code(s): J44.9 - Chronic obstructive pulmonary disease, unspecified (5) DVT prophylaxis Current visit: No Status: Acute Heparin 5000 units every 12 hours History of Present Illness Chief complaint: Chest pain, shortness of breath HPI: Mr. Brink is a 51 year old male with a past medical history of COPD, hypertension, GERD who presented to the emergency department on 11/20/17 with a chief complaint of chest pain and shortness of breath. By prior documentation he was admitted on 11/06/17 due to being unresponsive. This was just after he left the hospital AGAINST MEDICAL ADVICE on 11/04/17 at which time he was being treated for pneumonia, sepsis and CHF as well as myocardial infarction. During his hospitalization he was treated for pneumonia with vancomycin and Zosyn and placed on Bactrim due to stenotrophomonas pneumonia. He had a left heart catheterization at that time without intervention as well as an echo demonstrating an ejection fraction of 35%. He was noted to be placed on a beta kelin, Lasix as well as an NORAH inhibitor at discharge. He presents today with a chief complaint of shortness of breath and chest pain. Reports the chest pain has been going on for roughly 2 days. It is substernal without radiation. No syncopal, near syncopal, nausea vomiting or diarrhea. He was noted to be hypotensive in the emergency department. Despite 2 L IV fluids he remained hypotensive. Patient admitted to the [facility] for close hemodynamic monitoring secondary to hypotension. Patient initially evaluated in the emergency department. Systolic blood pressure 80. Mentating appropriately with map greater than 60. 25 g of 25% albumin was given as well as started on low-dose Levaquin fed at 2. At the time of arrival to the ICU Levaquin fed was held. Patient voices no other complaints. Past Med Surg Social Fam HX - Past Medical History Attestation: Yes The following information was validated with the patient. Source: patient Medical history: CHF, COPD, GERD, hypertension, other Psychiatric history: no psych history - Past Surgical History Surgical History: non-contributory, other - Social History Smoking Status: Current every day smoker Smokeless Tobacco Status: No Alcohol use: none Drug use: none - Family History Mother Living Status: Still Living Father Living Status: Hx Family Cardiac Disorders: Yes (CHF) Medications and Allergies Albuterol Sulfate [Albuterol Inhaler] 2 puff IH Q6HR PRN 09/25/17 [History] Budesonide/Formoterol 160/4.5 [Symbicort 160/4.5] 1 puff IH BIDR 09/25/17 [ History] Tamsulosin HCl [Flomax] 0.4 mg PO DAILY 09/25/17 [History] Ipratropium/Albuterol Neb [Duoneb] 3 ml IH BID PRN 11/03/17 [History] Loratadine [Allergy Relief] 10 mg PO DAILY PRN 11/03/17 [History] Oxygen 2 l NS CONT 11/03/17 [History] traZODone [TraZODone] 50 mg PO HS PRN 11/03/17 [History] Furosemide [Lasix] 20 mg PO DAILY #30 tablet 11/12/17 [Rx] Lisinopril [Zestril] 5 mg PO DAILY #30 tablet 11/12/17 [Rx] Metoprolol XL (24 HR) Succ [Toprol Xl] 12.5 mg PO DAILY #30 tab.er.24h 11/12/17 [Rx] Potassium Chloride 10 meq PO DAILY #30 tab.er.prt 11/12/17 [Rx] 3 Allergy/AdvReac Type Severity Reaction Status Date / Time No Known Allergies Allergy Verified 08/09/15 23:34 All Systems: The remainder of the systems were reviewed and are negative - Constitutional Constitutional: as per HPI - EENT Eyes: as per HPI Ears: as per HPI Nose, mouth and throat: as per HPI - Cardiovascular Cardiovascular: as per HPI - Respiratory Respiratory: as per HPI - Gastrointestinal Gastrointestinal: as per HPI - Genitourinary Genitourinary: as per HPI - Neurological Neurological: as per HPI - Psychiatric Psychiatric: as per HPI - Endocrine Endocrine: as per HPI - Hematologic/Lymphatic Hematologic/Lymphatic: as per HPI - Allergic/Immunologic Allergic/Immunologic: as per HPI Physical Examination Vital Signs: Vital Signs, Last 4 Hours Pulse Resp BP Pulse Ox 11/20/17 13:38 61 21 82/55 91 11/20/17 13:17 73 15 79/59 90 11/20/17 11:11 70 15 86/55 95 11/20/17 09:52 63 16 88/53 95 General appearance: no acute distress Eyes: nonicteric ENT: oropharynx moist Effort: normal Inspection: normal Cardiovascular: regular rate and rhythm Gastrointestinal: soft, non-tender, non-distended Integumentary: normal Extremities: no cyanosis, no edema Musculoskeletal: no deformities normal mental status mood appropriate Results - Laboratory Findings CBC and BMP: 11/20/17 09:04 11/20/17 09:04 Abnormal lab findings: Abnormal lab results WBC 12.9 K/mcL (4.3-11.1) H 11/20/17 09:04 Hgb 12.2 g/dL (12.9-16.9) L 11/20/17 09:04 RDW 15.7 % (11.5-14.5) H 11/20/17 09:04 Plt Count 135 K/mcL (140-400) L 11/20/17 09:04 Neutrophils # 9.0 K/mcL (1.6-8.9) H 11/20/17 09:04 Monocytes # 1.6 K/mcL (0.0-1.3) H 11/20/17 09:04 Sodium 131 mEq/L (136-145) L 11/20/17 09:04 BUN 33 mg/dL (6-20) H 11/20/17 09:04 Creatinine 1.76 mg/dL (0.70-1.30) H 11/20/17 09:04 Est GFR ( Amer) 50 (> 60) L 11/20/17 09:04 Est GFR (Non-Af Amer) 41 (> 60) L 11/20/17 09:04 Calculated Osmolality 279 (280-300) L 11/20/17 09:04 Calcium 8.3 mg/dL (8.6-10.3) L 11/20/17 09:04 - Diagnostic Findings Chest x-ray: report reviewed, image reviewed <Marleny Jones - Last Filed: 11/20/17 16:51> Date of Encounter: 11/20/17 History of Present Illness HPI: Mr. Brink is a 51 year old male All Systems: The remainder of the systems were reviewed and are negative Physical Examination Vital Signs: Vital Signs, Last 4 Hours Temp Pulse Resp BP Pulse Ox 11/20/17 15:11 64 19 82/57 93 11/20/17 15:00 98.0 F 53 16 88/57 98 Results - Laboratory Findings CBC and BMP: 11/20/17 09:04 11/20/17 09:04 Abnormal lab findings: Abnormal lab results WBC 12.9 K/mcL (4.3-11.1) H 11/20/17 09:04 Hgb 12.2 g/dL (12.9-16.9) L 11/20/17 09:04 RDW 15.7 % (11.5-14.5) H 11/20/17 09:04 Plt Count 135 K/mcL (140-400) L 11/20/17 09:04 Neutrophils # 9.0 K/mcL (1.6-8.9) H 04/13/18 09:04 Monocytes # 1.6 K/mcL (0.0-1.3) H 11/20/17 09:04 Sodium 131 mEq/L (136-145) L 11/20/17 09:04 BUN 33 mg/dL (6-20) H 11/20/17 09:04 Creatinine 1.76 mg/dL (0.70-1.30) H 11/20/17 09:04 Est GFR ( Amer) 50 (> 60) L 11/20/17 09:04 Est GFR (Non-Af Amer) 41 (> 60) L 11/20/17 09:04 POC Glucose 138 mg/dL (70-99) H 11/20/17 15:00 Calculated Osmolality 279 (280-300) L 11/20/17 09:04 Calcium 8.3 mg/dL (8.6-10.3) L 11/20/17 09:04 - Attending Attestation I examined this patient and my medical decision-making was reviewed with the Resident Physician. I agree with the documented findings, disposition and treatment plan as described except to the extent set forth below. Patient seen and examined. Labs, radiology, chart personally reviewed. Agree with resident's history and physical, assessment, plan with following comments: [employer]: Patient follows commands, Pulmonary: Acceptable oxygenation and ventilation Cardiovascular: Hypertension is most likely from side effect of medication and also his underlying cardiomyopathy. Colloid fluid resuscitation and low dose pressors for support. Will consider cardiology if needed. GI: Nutrition per dietary and GI prophylaxis per routine Heme: DVT prophylaxis per routine ID: Unlikely sepsis. Renal; urine out put and renal funtion reviewed Endorcine: blood glucose is monitored Lines: all lines checked and no evidence of infections Skin: skin care to prevent pressure ulcers per nursing routine care
[2017-11-20] MEDS ORDERED: Albumin 25% 25gram/100mL 25 GM/100 ML IV.SOLN IVPB PRN (16:57)
[2017-11-20] MEDS: *HR* Heparin 5,000 UNIT/ML VIAL SQ SCH (17:20)
[2017-11-20] MEDS ORDERED: Nicotine 21 MG PATCH.TD24 TD SCH (19:30)
[2017-11-20] MEDS: Ipratropium/Albuterol Neb 3 ML IH SCH (20:28)
[2017-11-20] MEDS: Budesonide/Formoterol 160/4.5 MDI IH SCH (20:28)
[2017-11-20] MEDS: Famotidine 20 MG TABLET PO SCH (22:20)
[2017-11-20] MEDS ORDERED: Cefepime HCl 2,000 MG in Water for inj. (sterile) 20 ML 20 ML IVP SCH (23:00)
[2017-11-21 03:14] LABS: Basophils % 0.1 %; Hematocrit 37.6 % (37.5-50.1); Hemoglobin 12.1 g/dL (12.9-16.9); Immature Granulocytes % 0.8 % (0-4); Lymphocytes # 0.6 K/mcL (0.6-4.6); Lymphocytes % 3.8 %; Mean Corpuscular HGB Conc 32.2 g/dL (31.6-35.5); Mean Corpuscular Hemoglobin 28.7 pg (28.0-33.3); Mean Corpuscular Volume 89.3 fL (83.0-100.0); Mean Platelet Volume 10.8 fL (9.4-12.4); Monocytes # 0.4 K/mcL (0.0-1.3); Monocytes % 2.5 %; Neutrophils # 14.5 K/mcL (1.6-8.9); Platelet Count 146 K/mcL (140-400); Red Blood Count 4.21 M/mcL (4.19-5.50); Red Cell Distribution Width 15.5 % (11.5-14.5); Segmented Neutrophils % 92.8 %
[2017-11-21 03:33] LABS: BUN/Creatinine Ratio 24 (6-26); Blood Urea Nitrogen 33 mg/dL (6-20); Calcium 8.2 mg/dL (8.6-10.3); Carbon Dioxide 24 mEq/L (23-29); Chloride 103 mEq/L (98-107); Glucose 167 mg/dL (70-105); Magnesium 1.9 mg/dL (1.6-2.6); Osmolality,Calculated 287 (280-300); Potassium 5.8 mEq/L (3.5-5.1); Sodium 133 mEq/L (136-145); eGFR For African Americans > 60 (> 60); eGFR For Non-African Americans 54 (> 60)
[2017-11-21] MEDS ORDERED: 0.9 % Sodium Chloride 1,000 ML ONE (03:43)
[2017-11-21] MEDS ORDERED: 0.9 % Sodium Chloride 1,000 ML IVC SCH (03:45)
[2017-11-21] MEDS ORDERED: 0.9 % Sodium Chloride 1,000 ML IVC ONE (04:42)
[2017-11-21] MEDS: *HR* Heparin 5,000 UNIT/ML VIAL SQ SCH ×2 (04:52→16:45)
--- NOTE | 2017-11-21 07:16 | Pulmonology Progress Note ---
<Marleny Jones - Last Filed: 11/21/17 09:52> Date of Encounter: 11/21/17 Objective PUL Vital signs: Last Vital Signs Temp 97.6 F 11/21/17 08:00 Pulse 72 11/21/17 09:00 Resp 16 11/21/17 09:01 BP 118/73 11/21/17 09:01 Pulse Ox 96 11/21/17 09:01 Results - Laboratory Findings CBC and BMP: 11/21/17 03:05 11/21/17 07:56 Abnormal lab findings: Abnormal lab results WBC 15.7 K/mcL (4.3-11.1) H 11/21/17 03:05 Hgb 12.1 g/dL (12.9-16.9) L 11/21/17 03:05 RDW 15.5 % (11.5-14.5) H 11/21/17 03:05 Neutrophils # 14.5 K/mcL (1.6-8.9) H 11/21/17 03:05 Sodium 133 mEq/L (136-145) L 11/21/17 03:05 BUN 33 mg/dL (6-20) H 11/21/17 03:05 Creatinine 1.40 mg/dL (0.70-1.30) H 11/21/17 03:05 Est GFR (Non-Af Amer) 54 (> 60) L 11/21/17 03:05 Glucose 167 mg/dL (70-105) H 11/21/17 03:05 POC Glucose 138 mg/dL (70-99) H 11/20/17 15:00 Lactic Acid 2.3 mmol/L (0.5-2.2) H 11/21/17 07:56 Calcium 8.2 mg/dL (8.6-10.3) L 11/21/17 03:05 - Clinical Findings Intake & Output: Intake & Output 11/20/17 11/21/17 11/21/17 23:59 07:59 15:59 Intake Total 716 / 716 1240 / 1240 640 / 640 Output Total 1350 / 1800 1300 / 1300 Balance -634 / -1084 -60 / -60 640 / 640 Weight 69.1 kg 71 kg Consult Discharge Plan - Plan Referrals: [facility] [Primary Care Provider] - - Attending Attestation I examined this patient and my medical decision-making was reviewed with the Resident Physician. I agree with the documented findings, disposition and treatment plan as described except to the extent set forth below. Patient seen and examined. Labs, radiology, chart personally reviewed. 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 Lasix and resume beta kelin because of his heart failure and patient is stable enough to be transferred to the floor. Because of his heart failure his blood pressure could be running on the low side which is acceptable. GI: Nutrition per dietary and GI prophylaxis per routine Heme: DVT prophylaxis per routine Renal; urine out put and renal funtion reviewed Endorcine: blood glucose is monitored Lines: all lines checked and no evidence of infections Skin: skin care to prevent pressure ulcers per nursing routine care <Rodney Yu - Last Filed: 11/21/17 09:59> Date of Encounter: 11/21/17 Time of Encounter: 08:56 Assessment and Plan (1) Hypotension Current Visit: Yes Status: Acute Patient presents with hypotension 80/60 refractory to IV fluid resuscitation with 2 L. Unclear etiology however he was recently placed on a beta kelin, diuretic and NORAH inhibitor after recent hospitalization. He is mentating appropriately and maintaining a map greater than 60. He was briefly on pressors in the emergency department which were stopped and he was brought to the ICU. Patient given 25 g of 25% albumin. Hypotension has resolved. Patient previously on Toprol, we will begin a low-dose Coreg. Plan to give 20 mg IV Lasix today. Qualifiers: Hypotension type: unspecified hypotension type Qualified Code(s): I95.9 - Hypotension, unspecified (2) Acute renal insufficiency Current Visit: No Status: Resolved Creatinine 1.76 at worst, improving today to 1.40 Likely secondary to hypoperfusion from hypotension. We will continue to trend daily BMP. Goal map greater than 60. Hold nephrotoxic agents. (3) Cardiomyopathy Current Visit: No Status: Chronic History of nonischemic cardiomyopathy. Left heart catheterization 11/04/17 with angiographically normal coronary arteries. Severe left ventricular dysfunction with an ejection fraction of 20%. Given his cardiomyopathy we will reinstitute a beta kelin starting with Coreg 3.125 twice daily. *Diuresis today with Lasix 20 mg. We will continue to hold his antihypertensive at this time in the setting of MONSERRAT. Qualifiers: Cardiomyopathy type: unspecified Qualified Code(s): I42.9 - Cardiomyopathy , unspecified (4) COPD (chronic obstructive pulmonary disease) Current Visit: No Status: Chronic Continue duo nebs, Symbicort Qualifiers: COPD type: unspecified COPD Qualified Code(s): J44.9 - Chronic obstructive pulmonary disease, unspecified (5) DVT prophylaxis Current Visit: No Status: Acute Heparin 5000 units every 12 hours Subjective Principal diagnosis: Hypotension Interval history: Labs and hemodynamics reviewed. Hemogram is stable overnight. Hypotension resolved. He is awake and alert this morning. IV fluid stopped. We will plan to resume a beta kelin today and begin gentle diuresis. Objective PUL Vital signs: Last Vital Signs Temp 98 F 11/21/17 04:00 Pulse 56 11/21/17 06:00 Resp 22 11/21/17 06:00 BP 113/73 11/21/17 06:00 Pulse Ox 99 11/21/17 06:00 General appearance: no acute distress ENT: oropharynx moist Effort: normal Auscultation: bilateral: other (Crackles in bases) Cardiovascular: regular rate and rhythm Gastrointestinal: soft, non-tender, non-distended Integumentary: normal Extremities: no cyanosis, no edema Musculoskeletal: no deformities normal mental status mood appropriate Results - Laboratory Findings CBC and BMP: 11/21/17 03:05 11/21/17 07:56 Abnormal lab findings: Abnormal lab results WBC 15.7 K/mcL (4.3-11.1) H 11/21/17 03:05 Hgb 12.1 g/dL (12.9-16.9) L 11/21/17 03:05 RDW 15.5 % (11.5-14.5) H 11/21/17 03:05 Neutrophils # 14.5 K/mcL (1.6-8.9) H 11/21/17 03:05 Sodium 133 mEq/L (136-145) L 11/21/17 03:05 Potassium 5.5 mEq/L (3.5-5.1) H 11/21/17 03:50 BUN 33 mg/dL (6-20) H 11/21/17 03:05 Creatinine 1.40 mg/dL (0.70-1.30) H 11/21/17 03:05 Est GFR (Non-Af Amer) 54 (> 60) L 11/21/17 03:05 Glucose 167 mg/dL (70-105) H 11/21/17 03:05 POC Glucose 138 mg/dL (70-99) H 11/20/17 15:00 Lactic Acid 3.3 mmol/L (0.5-2.2) H 11/21/17 03:50 Calcium 8.2 mg/dL (8.6-10.3) L 11/21/17 03:05 - Clinical Findings Intake & Output: Intake & Output 11/20/17 11/20/17 11/21/17 15:59 23:59 07:59 Intake Total 716 / 716 1240 / 1240 Output Total 1350 / 1800 600 / 600 Balance -634 / -1084 640 / 640 Weight 69.1 kg
[2017-11-21] MEDS ORDERED: Furosemide 20 MG/2 ML VIAL IVP ONE (08:55)
[2017-11-21] MEDS: Budesonide/Formoterol 160/4.5 MDI IH SCH ×2 (09:01→21:05)
[2017-11-21] MEDS: Ipratropium/Albuterol Neb 3 ML IH SCH ×2 (09:02→21:05)
[2017-11-21] MEDS: Famotidine 20 MG TABLET PO SCH ×2 (09:15→21:42)
[2017-11-21] MEDS ORDERED: Acetaminophen 325 MG TABLET PO PRN (10:33)
[2017-11-21] MEDS ORDERED: Loratadine 10 MG TABLET PO PRN (10:33)
[2017-11-21] MEDS ORDERED: Albumin 25% 25gram/100mL 25 GM/100 ML IV.SOLN IVPB PRN (10:33)
[2017-11-21] MEDS ORDERED: Naloxone 0.4 MG/ML INJ IVP PRN (10:33)
[2017-11-21] MEDS ORDERED: Nicotine 21 MG PATCH.TD24 TD SCH (18:00)
[2017-11-22] MEDS ORDERED: Melatonin 3 MG TABLET PO ONE (02:18)
[2017-11-22 03:04] LABS: Basophils % 0.1 %; Eosinophils # 0.1 K/mcL (0.0-0.6); Eosinophils % 0.7 %; Hematocrit 35.8 % (37.5-50.1); Hemoglobin 11.6 g/dL (12.9-16.9); Immature Granulocytes % 0.6 % (0-4); Lymphocytes # 1.7 K/mcL (0.6-4.6); Lymphocytes % 12.7 %; Mean Corpuscular HGB Conc 32.4 g/dL (31.6-35.5); Mean Corpuscular Hemoglobin 29.1 pg (28.0-33.3); Mean Corpuscular Volume 89.9 fL (83.0-100.0); Monocytes % 7.1 %; Neutrophils # 10.8 K/mcL (1.6-8.9); Platelet Count 133 K/mcL (140-400); Red Blood Count 3.98 M/mcL (4.19-5.50); Red Cell Distribution Width 15.6 % (11.5-14.5); Segmented Neutrophils % 78.8 %
[2017-11-22 03:26] LABS: BUN/Creatinine Ratio 20 (6-26); Blood Urea Nitrogen 29 mg/dL (6-20); Calcium 8.7 mg/dL (8.6-10.3); Carbon Dioxide 29 mEq/L (23-29); Chloride 107 mEq/L (98-107); Glucose 80 mg/dL (70-105); Magnesium 1.8 mg/dL (1.6-2.6); Osmolality,Calculated 295 (280-300); Potassium 4.5 mEq/L (3.5-5.1); Sodium 140 mEq/L (136-145); eGFR For African Americans > 60 (> 60); eGFR For Non-African Americans 51 (> 60)
[2017-11-22] MEDS: *HR* Heparin 5,000 UNIT/ML VIAL SQ SCH (04:43)
[2017-11-22] MEDS: Famotidine 20 MG TABLET PO SCH (07:40)
[2017-11-22] MEDS: Budesonide/Formoterol 160/4.5 MDI IH SCH (11:00)
[2017-11-22] MEDS: Ipratropium/Albuterol Neb 3 ML IH SCH (11:00)
[2017-11-22 11:17] VITALS: BP 159/106
--- NOTE | 2017-11-24 09:12 | Electrocardiograph Report ---
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
== END 2017-11-22 13:50 | disposition home or self-care (01) | DRG 469 ==
LOC: ICNU 08:36 → EMEROO 08:36 → ICNU 14:54 → SUATTDRO 17:07 → 2ANU 11-21 16:24
PROVIDERS: ADMIT Internal Medicine Pulmonary Disease; ATTEND Internal Medicine

== ENCOUNTER 2017-12-06 10:13 | Observation (INO) ==
[2017-12-06] MEDS ORDERED: Nitroglycerin 0.4 MG TAB.SUBL SL ONE (10:16)
[2017-12-06] MEDS ORDERED: Aspirin 81 MG TAB.CHEW PO ONE (10:16)
--- NOTE | 2017-12-06 10:18 | Emergency Department Note ---
Disposition Clinical Impression: NSTEMI (non-ST elevated myocardial infarction), Elevated troponin, Chest pain Disposition: Admitted As Inpatient Condition: Good Referrals: NONE,PCP [Non-Partnered Physician] - Forms: ED Satisfaction Letter General Adult HPI - General Chief complaint: ED Chest Pain Stated complaint: Chest Pain Time Seen by Provider: 12/06/17 10:16 - Related Data Home Medications Medication Instructions Recorded Confirmed Albuterol Sulfate [Albuterol 2 puff IH Q6HR PRN 09/25/17 12/06/17 Inhaler] Budesonide/Formoterol 160/4.5 1 puff IH BIDR 09/25/17 12/06/17 [Symbicort 160/4.5] Tamsulosin HCl [Flomax] 0.4 mg PO DAILY 09/25/17 12/06/17 Ipratropium/Albuterol Neb [Duoneb] 3 ml IH BID PRN 11/03/17 12/06/17 Loratadine [Allergy Relief] 10 mg PO DAILY PRN 11/03/17 12/06/17 Oxygen 2 l NS CONT 11/03/17 12/06/17 traZODone [TraZODone] 50 mg PO HS PRN 11/03/17 12/06/17 Previous Rx's Medication Instructions Recorded Furosemide [Lasix] 20 mg PO DAILY #30 tablet 11/12/17 Lisinopril [Zestril] 5 mg PO DAILY #30 tablet 11/12/17 Metoprolol XL (24 HR) Succ [Toprol 12.5 mg PO DAILY #30 tab.er.24h 11/12/17 Xl] Potassium Chloride 10 meq PO DAILY #30 tab.er.prt 11/12/17 Allergies Allergy/AdvReac Type Severity Reaction Status Date / Time No Known Allergies Allergy Verified 12/06/17 11:20 Past Medical History - Past Medical History Medical history: Reports: CHF, COPD, GERD, hypertension, other Surgical history: Reports: non-contributory, other Psychiatric history: Reports: no psych history - Social History Smoking Status: Current every day smoker Smokeless Tobacco Status: No Alcohol use: Reports: none Drug use: Reports: none Course Vital Signs Temperature 98.3 F 12/06/17 10:15 Pulse Rate 96 12/06/17 10:15 Respiratory Rate 16 12/06/17 10:15 Blood Pressure 144/113 12/06/17 10:15 O2 Sat by Pulse Oximetry 96 12/06/17 10:15 Temperature 98.3 F 12/06/17 10:15 Pulse Rate 84 12/06/17 11:24 Respiratory Rate 16 12/06/17 11:24 Blood Pressure 155/103 12/06/17 11:24 O2 Sat by Pulse Oximetry 95 12/06/17 11:24 Oxygen Delivery Oxygen Delivery Nasal Cannula Medical Decision Making - Lab Data Result diagrams: 12/06/17 10:20 12/06/17 10:20 Lab Results 12/06/17 12/06/17 12/06/17 Range/Units 10:20 10:20 10:20 WBC 15.6 H (4.3-11.1) K/mcL RBC 5.27 (4.19-5.50) M/mcL Hgb 14.8 (12.9-16.9) g/dL Hct 46.5 (37.5-50.1) % MCV 88.2 (83.0-100.0) fL MCH 28.1 (28.0-33.3) pg MCHC 31.8 (31.6-35.5) g/dL RDW 15.6 H (11.5-14.5) % Plt Count 249 (140-400) K/mcL MPV 10.3 (9.4-12.4) fL Immature Gran % 0.7 (0-4) % Seg Neutrophils % 76.3 % Lymphocytes % 11.6 % Monocytes % 10.2 % Eosinophils % 0.8 % Basophils % 0.4 % Neutrophils # 11.9 H (1.6-8.9) K/mcL Lymphocytes # 1.8 (0.6-4.6) K/mcL Monocytes # 1.6 H (0.0-1.3) K/mcL Eosinophils # 0.1 (0.0-0.6) K/mcL Basophils # 0.1 (0.0-0.2) K/mcL PT 10.6 (9.4-12.1) Seconds INR 1.0 Sodium 137 (136-145) mEq/L Potassium 3.6 (3.5-5.1) mEq/L Chloride 102 (98-107) mEq/L Carbon Dioxide 28 (23-29) mEq/L BUN 9 (6-20) mg/dL Creatinine 1.02 (0.70-1.30) mg/dL Est GFR ( Amer) > 60 (> 60) Est GFR (Non-Af Amer) > 60 (> 60) BUN/Creatinine Ratio 9 (6-26) Glucose 96 (70-105) mg/dL Calculated Osmolality 283 (280-300) Calcium 9.5 (8.6-10.3) mg/dL Total Bilirubin 0.4 (0.3-1.0) mg/dL AST 19 (13-39) Units/L ALT 15 (7-52) Units/L Alkaline Phosphatase 98 (34-104) Units/L Troponin I (< 0.04) ng/mL Serum Total Protein 7.0 (6.4-8.9) g/dL Albumin 4.3 (3.5-5.7) g/dL Globulin 2.7 (2.4-3.5) g/dL Albumin/Globulin Ratio 1.6 (1.1-2.2) 12/06/17 Range/Units 10:20 WBC (4.3-11.1) K/mcL RBC (4.19-5.50) M/mcL Hgb (12.9-16.9) g/dL Hct (37.5-50.1) % MCV (83.0-100.0) fL MCH (28.0-33.3) pg MCHC (31.6-35.5) g/dL RDW (11.5-14.5) % Plt Count (140-400) K/mcL MPV (9.4-12.4) fL Immature Gran % (0-4) % Seg Neutrophils % % Lymphocytes % % Monocytes % % Eosinophils % % Basophils % % Neutrophils # (1.6-8.9) K/mcL Lymphocytes # (0.6-4.6) K/mcL Monocytes # (0.0-1.3) K/mcL Eosinophils # (0.0-0.6) K/mcL Basophils # (0.0-0.2) K/mcL PT (9.4-12.1) Seconds INR Sodium (136-145) mEq/L Potassium (3.5-5.1) mEq/L Chloride (98-107) mEq/L Carbon Dioxide (23-29) mEq/L BUN (6-20) mg/dL Creatinine (0.70-1.30) mg/dL Est GFR ( Amer) (> 60) Est GFR (Non-Af Amer) (> 60) BUN/Creatinine Ratio (6-26) Glucose (70-105) mg/dL Calculated Osmolality (280-300) Calcium (8.6-10.3) mg/dL Total Bilirubin (0.3-1.0) mg/dL AST (13-39) Units/L ALT (7-52) Units/L Alkaline Phosphatase (34-104) Units/L Troponin I 0.05 H* (< 0.04) ng/mL Serum Total Protein (6.4-8.9) g/dL Albumin (3.5-5.7) g/dL Globulin (2.4-3.5) g/dL Albumin/Globulin Ratio (1.1-2.2) Critical Care Time Critical Care Time: Yes Total Critical Care Time: 30 Attestation: The high probability of a clinically significant, sudden or life threatening deterioration of the [] system(s) required my full and direct attention, intervention and personal management. The aggregate critical care time was [] minutes. This time is in addition to time spent performing reported procedures but includes the following: [] Data Review and interpretation [] Patient assessment and monitoring of vital signs [] Documentation [] Medication orders and management Attestation Statement - Attestation Attestation: I examined this patient and my medical decision-making was reviewed with the Resident Physician. I agree with the documented findings, disposition and treatment plan as described except to the extent set forth below. [id number] time provided Patient presents with chest pain. He arrives from home by EMS. He states he has no previous history of coronary artery disease to his knowledge. Appears in no acute distress on exam
--- NOTE | 2017-12-06 10:19 | Emergency Department Note ---
Disposition Clinical Impression: NSTEMI (non-ST elevated myocardial infarction), Elevated troponin Chest pain Qualifiers: Chest pain type: unspecified Qualified Code(s): R07.9 - Chest pain, unspecified Disposition: Admitted As Inpatient Condition: Good Time of Disposition: 11:22 Chest Pain HPI - General Chief Complaint: ED Chest Pain Stated Complaint: Chest Pain Time Seen by Provider: 12/06/17 10:16 Source: patient Mode of arrival: ambulatory Limitations: no limitations Vital Signs Reviewed: Yes Nursing Notes Reviewed: Yes - History of Present Illness HPI Narrative: Patient is a 51-year-old male with past medical history of COPD, CHF, hypertension. He presents today due to chest pain. He states that he was up around midnight, started having chest pain while at rest. He describes the pain as substernal, pressure radiating up to neck, it was a 10 out of 10 when it started, currently rated at 210. No radiation to back, shoulders, jaw. Patient has a baseline shortness of breath with COPD and wears 2 L nasal cannula oxygen. He denies any increase in his shortness of breath at baseline. Denies any other fevers, nausea, vomiting, sweating. Denies any worsening with exertion. He did not take any medication at home, denies taking any aspirin or nitroglycerin. He says that the pain gradually worsened which prompted him to come in. In total, pain has been lasting for the past 10 hours. Denies any other fevers, abdominal pain, diarrhea. Denies any history of previous NV, previous trach stents. - Related Data Home Medications Medication Instructions Recorded Confirmed Albuterol Sulfate [Albuterol 2 puff IH Q6HR PRN 09/25/17 12/06/17 Inhaler] Budesonide/Formoterol 160/4.5 1 puff IH BIDR 09/25/17 12/06/17 [Symbicort 160/4.5] Tamsulosin HCl [Flomax] 0.4 mg PO DAILY 09/25/17 12/06/17 Ipratropium/Albuterol Neb [Duoneb] 3 ml IH BID PRN 11/03/17 12/06/17 Loratadine [Allergy Relief] 10 mg PO DAILY PRN 11/03/17 12/06/17 Oxygen 2 l NS CONT 11/03/17 12/06/17 traZODone [TraZODone] 50 mg PO HS PRN 11/03/17 12/06/17 Previous Rx's Medication Instructions Recorded Furosemide [Lasix] 20 mg PO DAILY #30 tablet 11/12/17 Lisinopril [Zestril] 5 mg PO DAILY #30 tablet 11/12/17 Metoprolol XL (24 HR) Succ [Toprol 12.5 mg PO DAILY #30 tab.er.24h 11/12/17 Xl] Potassium Chloride 10 meq PO DAILY #30 tab.er.prt 11/12/17 Allergies Allergy/AdvReac Type Severity Reaction Status Date / Time No Known Allergies Allergy Verified 12/06/17 11:20 All systems ED: reviewed and negative except as stated. Constitutional: Denies: fever Cardiovascular: Reports: chest pain. Denies: palpitations Respiratory: Reports: dyspnea. Denies: cough, wheezes Gastrointestinal: Denies: abdominal pain, nausea, vomiting, diarrhea Genitourinary: Denies: urgency, dysuria, frequency, hematuria Integumentary: Denies: rash Neurological: Denies: headache, weakness, numbness, paresthesias Chest Pain PMH - Past Medical History Medical history: Reports: CHF, COPD, GERD, hypertension, other Surgical history: Reports: non-contributory, other Psychiatric history: Reports: no psych history - Social History Smoking Status: Current every day smoker Alcohol use: Reports: none Drug use: Reports: none Physical Exam - General Limitations: no limitations General appearance: alert, in no apparent distress - Head Head exam: atraumatic, normocephalic, normal inspection - Eye Eye exam: Present: normal appearance, PERRL, EOMI - ENT ENT exam: normal exam, normal oropharynx, mucous membranes moist - Neck Neck exam: Present: normal inspection, full ROM, trachea midline - Chest Chest inspection: Present: normal inspection, symmetric chest wall rise - Respiratory Respiratory exam: Present: normal lung sounds bilaterally - Cardiovascular Cardiovascular exam: Present: regular rate, normal rhythm, normal heart sounds - Abdominal Exam Abdominal exam: Present: soft, Non-Tender. Absent: tenderness, distention, guarding, rebound, rigidity - Extremities Exam Extremities exam: Present: normal inspection, full ROM. Absent: tenderness, pedal edema - Neurological Exam Neurological exam: Present: alert, oriented X3 - Psychiatric Psychiatric exam: Present: normal affect, normal mood - Skin Skin exam: Present: warm, dry, intact, normal color Course Course Narrative: Patient does have risk factor for hypertension, smoking. Currently concern for ACS. We will give the patient aspirin 325 mg, nitroglycerin to see if we can get his pain to 0 out of 10. We will obtain EKG, chest x-ray, troponin level. EKG shows normal sinus rhythm with no acute ST elevation or depression. There is T-wave inversion in V4, V5 that is old from previous EKG on . 11:21 elevation white blood cell count of 15.6. No fevers. Chest x-ray shows COPD but no signs of pneumonia. Troponin came back elevated 0.05. Chest pain is currently a 0 out of 10. We will cleanse with patient on heparin, concern for NSTEMI. We will consult cardiology and then admitted to medicine for further care. 11:[address] Myers with cardiology, discussed presentation, lab results, current clinical status, she was ageeable with plan of starting heparin and will act as consult for patient. Chest X-Ray 12/06/17 10:16 IMPRESSION: Stable COPD with no acute abnormality. D/ / 12/06/2017 10:42:03 Eze Oakley MD / [email or web address] Interpreting Provider: Eze Oakley MD Vital Signs Temperature 98.3 F 12/06/17 10:15 Pulse Rate 96 12/06/17 10:15 Respiratory Rate 16 12/06/17 10:15 Blood Pressure 144/113 12/06/17 10:15 O2 Sat by Pulse Oximetry 96 12/06/17 10:15 Temperature 98.3 F 12/06/17 10:15 Pulse Rate 84 12/06/17 11:24 Respiratory Rate 16 12/06/17 11:24 Blood Pressure 155/103 12/06/17 11:24 O2 Sat by Pulse Oximetry 95 12/06/17 11:24 Oxygen Delivery Oxygen Delivery Nasal Cannula Chest Pain - MDM Narrative Medical decision making narrative: Patient does have risk factor for hypertension, smoking. Currently concern for ACS. We will give the patient aspirin 325 mg, nitroglycerin to see if we can get his pain to 0 out of 10. We will obtain EKG, chest x-ray, troponin level. EKG shows normal sinus rhythm with no acute ST elevation or depression. There is T-wave inversion in V4, V5 that is old from previous EKG on . 11:21 elevation white blood cell count of 15.6. No fevers. Chest x-ray shows COPD but no signs of pneumonia. Troponin came back elevated 0.05. Chest pain is currently a 0 out of 10. We will cleanse with patient on heparin, concern for NSTEMI. We will consult cardiology and then admitted to medicine for further care. 11:[address] Myers with cardiology, discussed presentation, lab results, current clinical status, she was ageeable with plan of starting heparin and will act as consult for patient. - Medical Records Medical records reviewed: Yes I reviewed the patient's medical records. - Lab Data Lab results reviewed: Yes I reviewed the patient's lab results. Result diagrams: 12/06/17 10:20 12/06/17 10:20 Lab Results 12/06/17 12/06/17 12/06/17 Range/Units 10:20 10:20 10:20 WBC 15.6 H (4.3-11.1) K/mcL RBC 5.27 (4.19-5.50) M/mcL Hgb 14.8 (12.9-16.9) g/dL Hct 46.5 (37.5-50.1) % MCV 88.2 (83.0-100.0) fL MCH 28.1 (28.0-33.3) pg MCHC 31.8 (31.6-35.5) g/dL RDW 15.6 H (11.5-14.5) % Plt Count 249 (140-400) K/mcL MPV 10.3 (9.4-12.4) fL Immature Gran % 0.7 (0-4) % Seg Neutrophils % 76.3 % Lymphocytes % 11.6 % Monocytes % 10.2 % Eosinophils % 0.8 % Basophils % 0.4 % Neutrophils # 11.9 H (1.6-8.9) K/mcL Lymphocytes # 1.8 (0.6-4.6) K/mcL Monocytes # 1.6 H (0.0-1.3) K/mcL Eosinophils # 0.1 (0.0-0.6) K/mcL Basophils # 0.1 (0.0-0.2) K/mcL PT 10.6 (9.4-12.1) Seconds INR 1.0 APTT 27.1 (26.0-36.0) Seconds Sodium 137 (136-145) mEq/L Potassium 3.6 (3.5-5.1) mEq/L Chloride 102 (98-107) mEq/L Carbon Dioxide 28 (23-29) mEq/L BUN 9 (6-20) mg/dL Creatinine 1.02 (0.70-1.30) mg/dL Est GFR ( Amer) > 60 (> 60) Est GFR (Non-Af Amer) > 60 (> 60) BUN/Creatinine Ratio 9 (6-26) Glucose 96 (70-105) mg/dL Calculated Osmolality 283 (280-300) Calcium 9.5 (8.6-10.3) mg/dL Total Bilirubin 0.4 (0.3-1.0) mg/dL AST 19 (13-39) Units/L ALT 15 (7-52) Units/L Alkaline Phosphatase 98 (34-104) Units/L Troponin I (< 0.04) ng/mL Serum Total Protein 7.0 (6.4-8.9) g/dL Albumin 4.3 (3.5-5.7) g/dL Globulin 2.7 (2.4-3.5) g/dL Albumin/Globulin Ratio 1.6 (1.1-2.2) 12/06/17 Range/Units 10:20 WBC (4.3-11.1) K/mcL RBC (4.19-5.50) M/mcL Hgb (12.9-16.9) g/dL Hct (37.5-50.1) % MCV (83.0-100.0) fL MCH (28.0-33.3) pg MCHC (31.6-35.5) g/dL RDW (11.5-14.5) % Plt Count (140-400) K/mcL MPV (9.4-12.4) fL Immature Gran % (0-4) % Seg Neutrophils % % Lymphocytes % % Monocytes % % Eosinophils % % Basophils % % Neutrophils # (1.6-8.9) K/mcL Lymphocytes # (0.6-4.6) K/mcL Monocytes # (0.0-1.3) K/mcL Eosinophils # (0.0-0.6) K/mcL Basophils # (0.0-0.2) K/mcL PT (9.4-12.1) Seconds INR APTT (26.0-36.0) Seconds Sodium (136-145) mEq/L Potassium (3.5-5.1) mEq/L Chloride (98-107) mEq/L Carbon Dioxide (23-29) mEq/L BUN (6-20) mg/dL Creatinine (0.70-1.30) mg/dL Est GFR ( Amer) (> 60) Est GFR (Non-Af Amer) (> 60) BUN/Creatinine Ratio (6-26) Glucose (70-105) mg/dL Calculated Osmolality (280-300) Calcium (8.6-10.3) mg/dL Total Bilirubin (0.3-1.0) mg/dL AST (13-39) Units/L ALT (7-52) Units/L Alkaline Phosphatase (34-104) Units/L Troponin I 0.05 H* (< 0.04) ng/mL Serum Total Protein (6.4-8.9) g/dL Albumin (3.5-5.7) g/dL Globulin (2.4-3.5) g/dL Albumin/Globulin Ratio (1.1-2.2) - Radiology Data Radiology results reviewed: Yes I reviewed the patient's radiology results. Chest X-Ray 12/06/17 10:16 IMPRESSION: Stable COPD with no acute abnormality. D/ / 12/06/2017 10:42:03 Eze Oakley MD / [email or web address] Interpreting Provider: Eze Oakley MD - EKG Data EKG attestation: Yes I reviewed and interpreted this EKG. EKG results narrative: 12/06/2017 at 10:16. Normal sinus rhythm. Rate 95. W[place] 142. QRS 102. QTC 400. Normal axis. No acute ST elevation or depression. T-wave inversion in V4 , V5 that is old from previous EKG on 11/20/2017. Hernán - Hernán Situation: Demographics, MOA Background: Presenting Complaint, Relevant PMH, Meds, & Allergies Assessment: Vital Signs, Course and respsone to treatment, Exam Concerns, Patient/Family Expectation, Pertinant Lab Results Recommendation: Barrier(s) to disposition, Recommendation based on pending studies, treatments, or consults Hernán Report Given to: Dr. Ilene Jim Repor Time: 11:52
[2017-12-06 10:33] LABS: Basophils # 0.1 K/mcL (0.0-0.2); Basophils % 0.4 %; Eosinophils # 0.1 K/mcL (0.0-0.6); Eosinophils % 0.8 %; Hematocrit 46.5 % (37.5-50.1); Hemoglobin 14.8 g/dL (12.9-16.9); Immature Granulocytes % 0.7 % (0-4); Lymphocytes # 1.8 K/mcL (0.6-4.6); Lymphocytes % 11.6 %; Mean Corpuscular HGB Conc 31.8 g/dL (31.6-35.5); Mean Corpuscular Hemoglobin 28.1 pg (28.0-33.3); Mean Corpuscular Volume 88.2 fL (83.0-100.0); Mean Platelet Volume 10.3 fL (9.4-12.4); Monocytes # 1.6 K/mcL (0.0-1.3); Monocytes % 10.2 %; Neutrophils # 11.9 K/mcL (1.6-8.9); Platelet Count 249 K/mcL (140-400); Red Blood Count 5.27 M/mcL (4.19-5.50); Red Cell Distribution Width 15.6 % (11.5-14.5); Segmented Neutrophils % 76.3 %
[2017-12-06 10:52] LABS: Prothrombin Time 10.6 Seconds (9.4-12.1)
[2017-12-06 11:01] LABS: Alanine Aminotransferase 15 Units/L (7-52); Albumin 4.3 g/dL (3.5-5.7); Albumin/Globulin Ratio 1.6 (1.1-2.2); Alkaline Phosphatase 98 Units/L (34-104); Aspartate Amino Transferase 19 Units/L (13-39); BUN/Creatinine Ratio 9 (6-26); Bilirubin,Total 0.4 mg/dL (0.3-1.0); Blood Urea Nitrogen 9 mg/dL (6-20); Calcium 9.5 mg/dL (8.6-10.3); Carbon Dioxide 28 mEq/L (23-29); Chloride 102 mEq/L (98-107); Globulin 2.7 g/dL (2.4-3.5); Glucose 96 mg/dL (70-105); Osmolality,Calculated 283 (280-300); Potassium 3.6 mEq/L (3.5-5.1); Sodium 137 mEq/L (136-145); eGFR For African Americans > 60 (> 60); eGFR For Non-African Americans > 60 (> 60)
[2017-12-06] MEDS ORDERED: *HR* Heparin 5,000 UNIT/ML VIAL IVP ONE (11:19)
[2017-12-06] MEDS ORDERED: *HR* Heparin 5,000 UNIT/ML VIAL IVP PRN ×2 (11:19)
[2017-12-06] MEDS ORDERED: Heparin 25,000 UNIT/500 ML D5W 25,000 UNIT/500 ML BAG IVC SCH (11:30)
[2017-12-06 11:36] LABS: Activated Partial Thrombo Time 27.1 Seconds (26.0-36.0)
[2017-12-06] MEDS ORDERED: Naloxone 0.4 MG/ML INJ IVP PRN (12:14)
[2017-12-06] MEDS ORDERED: Acetaminophen 325 MG TABLET PO PRN (12:14)
[2017-12-06] MEDS ORDERED: Loratadine 10 MG TABLET PO PRN (12:21)
[2017-12-06] MEDS ORDERED: Nitroglycerin 0.4 MG TAB.SUBL SL PRN (12:30)
--- NOTE | 2017-12-06 12:36 | Internal Med History&Physical ---
<Jamil Lew - Last Filed: 12/06/17 13:28> Date of Encounter: 12/06/17 Time of Encounter: 11:45 Internal Medicine - H&P: HPI Chief complaint: CP Admitted From: Emergency Dept Plans for Post Hospital Care: Home History of present illness: Mr. Brink is a 51 year old male w/PMH of CHF, COPD, GERD, hypertension, and self-reported drug abuse presents from the ED chief complaint of chest pain that began at midnight last night at rest. Patient describes pain as centralized pressure in chest with radiation to neck but denies radiation to arm , back, or jaw. Reports shortness of breath and diaphoresis but denies nausea or vomiting. Patient reports he did heroin within the past 2 days. No alleviating or aggravating factors. Denies previous MN or stent placement. Reports being seen in 09/27 and 10/25 for similar sx. Pt. reports he currently smokes 1/2 PPD. Also reports he has been ill for the past week w/cough. Denies nausea, vomiting, changes in vision, palpitations, headache, unusual bleeding, abdominal pain, diarrhea, constipation, numbness, tingling, dizziness, lightheadedness, pre-syncope, or syncope. Past Med Surg Social Fam HX - Past Medical History Source: patient, old records reviewed Medical history: CHF, COPD, GERD, hypertension, other Psychiatric history: no psych history - Past Surgical History Surgical History: non-contributory, other - Social History Smoking Status: Current every day smoker Packs per day: 1/2 PPD Smokeless Tobacco Status: No Alcohol use: none Drug use: none, other (Heroin - Reports used w/i past two days) Current living situation: Home Activity Level: Independent ambulation Recent Out of Country Travel Within the Last 8 Weeks: No Exposure or Possible Exposure to Illness During Travel: No - Family History Mother Race: Family Member Ethnicity: Non- Living Status: Still Living Hx Family Medical Disorders: No Father Race: Family Member Ethnicity: Non- Living Status: Age at : 67 Cause of : CHF Hx Family Cardiac Disorders: Yes (CHF) Hx Family Endocrine Disorder: Yes (DM) Sister Race: Family Member Ethnicity: Non- Living Status: Still Living Hx Family Cancer: Yes (Thyroid) Internal Medicine - H&P: Meds Albuterol Sulfate [Albuterol Inhaler] 2 puff IH Q6HR PRN 09/25/17 [History] Budesonide/Formoterol 160/4.5 [Symbicort 160/4.5] 1 puff IH BIDR 09/25/17 [ History] Tamsulosin HCl [Flomax] 0.4 mg PO DAILY 09/25/17 [History] Ipratropium/Albuterol Neb [Duoneb] 3 ml IH BID PRN 11/03/17 [History] Loratadine [Allergy Relief] 10 mg PO DAILY PRN 11/03/17 [History] Oxygen 2 l NS CONT 11/03/17 [History] traZODone [TraZODone] 50 mg PO HS PRN 11/03/17 [History] Furosemide [Lasix] 20 mg PO DAILY #30 tablet 11/12/17 [Rx] Lisinopril [Zestril] 5 mg PO DAILY #30 tablet 11/12/17 [Rx] Metoprolol XL (24 HR) Succ [Toprol Xl] 12.5 mg PO DAILY #30 tab.er.24h 11/12/17 [Rx] Potassium Chloride 10 meq PO DAILY #30 tab.er.prt 11/12/17 [Rx] 3 Allergy/AdvReac Type Severity Reaction Status Date / Time No Known Allergies Allergy Verified 12/06/17 11:20 All Systems PM: A 10-system review of systems was performed and is negative for pertinent findings except as documented above in the HPI. - Constitutional Constitutional: as per HPI, weakness, no chills, no fever(s), no night sweats - EENT Eyes: no change in vision, no discharge, no pain, no photophobia Ears: no ear discharge, no ear pain, no tinnitus Nose, mouth and throat: no dysphagia, no nasal discharge, no neck pain, no sore throat - Breasts Breasts: as per HPI - Cardiovascular Cardiovascular ROS IM: as per HPI, chest pain, diaphoresis, dyspnea, dyspnea on exertion, no lightheadedness, no palpitations, no syncope - Respiratory Respiratory: as per HPI, cough, dyspnea, dyspnea on exertion, no wheezing, no excessive phlegm production - Gastrointestinal Gastrointestinal: no abdominal pain, no diarrhea, no hematemesis, no hematochezia, no melena, no nausea, no vomiting - Genitourinary Genitourinary ROS male: as per HPI - Musculoskeletal Musculoskeletal ROS IM: no numbness, no tingling - Integumentary Integumentary IM: no rash, no unusual bruising - Neurological Neurological ROS: no confusion, no convulsions, no focal weakness, no numbness, no tingling, no tremor(s) - Psychiatric Psychiatric: as per HPI - Endocrine Endocrine IM: as per HPI - Hematologic/Lymphatic Hematologic/Lymphatic: no easy bruising - Allergic/Immunologic Allergic/Immunologic: as per HPI - Constitutional Vitals: Temp Pulse Resp BP Pulse Ox 98.3 F 84 16 155/103 95 12/06/17 10:15 12/06/17 11:24 12/06/17 11:24 12/06/17 11:24 12/06/17 11:24 General appearance: Present: cooperative, mild distress, A&O X 3, answers questions appropriately - Head Head exam: Present: atraumatic, normocephalic - Eye Eye exam: Present: PERRL, conjuntiva pink, sclera anicteric Pupils: Present: PERRL - ENT ENT exam: Present: normal exam - Neck Neck exam general surgery: Present: supple, trachea midline. Absent: lymphadenopathy - Respiratory Respiratory exam: Present: decreased breath sounds, wheezes - Cardiovascular Cardiovascular exam: Present: RRR, +S1, +S2. Absent: diastolic murmur, gallop, rubs, systolic murmur - GI/Abdominal GI/Abdominal exam: Present: normal bowel sounds, soft, no peritoneal signs. Absent: distended, tenderness - Rectal Rectal exam: Present: deferred - Additional comments: exam deferred. - Extremities Exam Extremities exam: Present: warm, radial pulses palpable and symmetrical. Absent : calf tenderness, cyanotic, pedal edema - Back Exam Back exam: Present: normal inspection - Neurological Exam Neurological exam: Present: CN II-XII intact, oriented X3, no focal deficits. Absent: pronater drift, facial droop, speech deficit - Psychiatric Psychiatric exam: Present: anxious - Skin Skin exam: Present: dry, intact Internal Med - H&P Results - Labs CBC & Chem 7: 12/06/17 10:20 12/06/17 10:20 - EKG Data EKG shows normal: sinus rhythm - EKG Data Prior EKG available for review: yes Interpretation IM: suggestive of ischemia EKG comments: 12/06/17 12:54 EKG dated 11/20/17 shows sinus rhythm with possible left atrial enlargement, ST deviation, and moderate T-wave abnormality. Consider lateral ischemia. EKG dated 12/06/17 shows sinus rhythm with left ventricular hypertrophy and ST- T changes. - Diagnostic Studies Chest x-ray Additional comments: Impressions Chest X-Ray 12/06/17 10:16 IMPRESSION: Stable COPD with no acute abnormality. D/ / 12/06/2017 10:42:03 Eze Oakley MD / [email or web address] Interpreting Provider: Eze Oakley MD - Assessment and plan (1) Chest pain Current Visit: Yes Status: Acute Assessment and plan: Acute CP that pt. reports began at midnight at rest. Was admitted in 09/27 and 10/25 for similar sx. Pt. describes chest discomfort as severe chest pressure and centralized chest with radiation to neck. Denies radiation to arm, jaw, or back. No alleviating or aggravating factors. Patient reports snorting heroin within past 2 days. Stat urine tox screen ordered. Initial troponin 0.05. Will trend. Continuous cardiac telemetry. Patient given 325 mg aspirin in ED. Continue 81 mg daily. Lipitor 80 mg now. Continue 20 mg daily. Echocardiogram on 11/03/17 showed LVEF of 30-35%, global LV systolic dysfunction, normal right ventricular size with low normal function. When compared to prior echo on , LV systolic function is nearly reduced. Pt. had stress test on 06/15/15. Heart cath on 11/04/17 showed coronary arteries angiographically normal, severe LV dysfunction with EF 20%, and non-ischemic cardiomyopathy. Continuous cardiac telemetry. Pt. placed on heparin drip in ED. Cardiology consult ordered in ED. Pt. discussed w/Dr. Odom who agrees w/plan of care. Pt. is high risk for further morbidity d/t recent drug abuse of unknown type(s) and quantity, current and recurrent CP, low LVEF on Echo, hx; and risk factors of CHF, COPD, HTN, and current tobacco abuse. Observation. Qualifiers: Chest pain type: unspecified Qualified Code(s): R07.9 - Chest pain, unspecified (2) Elevated troponin Current Visit: Yes Status: Acute Assessment and plan: Acutely elevated troponin of 0.05 on admission. Hx of elevated troponins in September and October 2017. Echo/stress/heart cath on 11/03-. Pt. reports snorting heroin w/i past two days. Will trend troponins. Continuous cardiac telemetry. Cardiology consult ordered in ED. Heparin drip started in ED. Monitor pt. and f/u labs. (3) Leukocytosis Current Visit: Yes Status: Acute Assessment and plan: Acute leukocytosis w/WBC of 15.6. Infection versus cardiac stress-related. No know source. Pt. reports feeling ill for the past week. Respiratory infection panel ordered. Blood cultures x2 ordered. Will monitor pt. and f/u labs and add abx coverage if appropriate. Qualifiers: Leukocytosis type: unspecified Qualified Code(s): D72.829 - Elevated white blood cell count, unspecified (4) CHF (congestive heart failure) Current Visit: Yes Status: Chronic Assessment and plan: Hx of chronic CHF. Stable. Will monitor fluid intake and continue pts. PO lasix. Continuous cardiac telemetry. Qualifiers: Heart failure type: systolic Heart failure chronicity: chronic Qualified Code(s): I50.22 - Chronic systolic (congestive) heart failure (5) Drug abuse and dependence Current Visit: Yes Status: Chronic Assessment and plan: Hx of chronic drug abuse. Pt. reports he snorted heroin two days ago. Stat urine tox screen ordered to assess what substances pt. used recently which may be contributing to current CP. (6) HTN (hypertension) Current Visit: Yes Status: Chronic Assessment and plan: Hx of chronic HTN. Monitor pt. and VS. Continue patient's metoprolol and lisinopril. Qualifiers: Hypertension type: essential hypertension Qualified Code(s): I10 - Essential (primary) hypertension (7) COPD (chronic obstructive pulmonary disease) Current Visit: Yes Status: Chronic Assessment and plan: Hx of chronic COPD. Stable on CXR today. Continue pts. inhalers. DuoNebs Q6HR scheduled. Supplemental O2 w/titration and SpO2 monitoring. Qualifiers: COPD type: unspecified COPD Qualified Code(s): J44.9 - Chronic obstructive pulmonary disease, unspecified (8) Tobacco abuse Current Visit: Yes Status: Chronic Assessment and plan: Hx of chronic tobacco abuse. Pt. reports smoking 1/2 PPD. 14 mg nicotine patch. (9) DVT prophylaxis Current Visit: Yes Status: Acute Assessment and plan: Patient placed on heparin drip for NSTEMI. Monitor pt. for signs of bleeding. - Time Spent With Patient Total time spent is greater than 50% in coordination of care (as documented) at patient's floor/unit and/or counseling patient: 25 - 35 minutes <Michael Odom - Last Filed: 12/06/17 16:17> Date of Encounter: 12/06/17 Internal Medicine - H&P: HPI History of present illness: Mr. Brink is a 51 year old male All Systems PM: A 10-system review of systems was performed and is negative for pertinent findings except as documented above in the HPI. - Constitutional Vitals: Temp Pulse Resp BP Pulse Ox 97.5 F L 98 18 131/91 97 12/06/17 14:52 12/06/17 14:52 12/06/17 14:52 12/06/17 14:52 12/06/17 14:52 Internal Med - H&P Results - Labs CBC & Chem 7: 12/06/17 10:20 12/06/17 10:20 - Attending Attestation I saw and examined this patient independently, and my medical decision making was reviewed with BLANK[employer]TER [employer]/PA on 2017. I agree with the documented findings, assessment and treatment plan as described in the progress note. - Time Spent With Patient Total time spent is greater than 50% in coordination of care (as documented) at patient's floor/unit and/or counseling patient:
[2017-12-06 13:06] LABS: Amphetamine Screen,Urine Negative ng/mL (Cutoff=1000); Barbiturate Screen,Urine Negative ng/mL (Cutoff=200); Benzodiazepines Screen,Urine Negative ng/mL (Cutoff=200); Cannabinoid Screen,Urine Negative ng/mL (Cutoff = 50); Cocaine Screen,Urine Negative ng/mL (Cutoff= 300); Opiate Screen,Urine Positive ng/mL (Cutoff=300); Phencyclidine Screen,Urine Negative ng/mL (Cutoff=25)
[2017-12-06] MEDS ORDERED: *HR* LORazepam 2 MG/ML VIAL IVP PRN (15:56)
[2017-12-06] MEDS: Ipratropium/Albuterol Neb 3 ML IH SCH ×2 (16:25→21:12)
[2017-12-06 16:28] LABS: Adenovirus Not Detected (Not Detect); Bordetella Pertussis Not Detected (Not Detect); Chlamydophila pneumoniae Not Detected (Not Detect); Coronavirus 229E Not Detected (Not Detect); Coronavirus HKU1 Not Detected (Not Detect); Coronavirus NL63 Not Detected (Not Detect); Coronavirus OC43 Not Detected (Not Detect); Human Metapneumovirus Not Detected (Not Detect); Human Rhinovirus/Enterovirus Not Detected (Not Detect); Influenza A Subtype 2009 H1 Not Detected (Not Detect); Influenza A Untypeable Not Detected (Not Detect); Influenza B Not Detected (Not Detect); Mycoplasma pneumoniae Not Detected (Not Detect); Parainfluenza Virus 1 Not Detected (Not Detect); Parainfluenza Virus 2 Not Detected (Not Detect); Parainfluenza Virus 3 Not Detected (Not Detect); Parainfluenza Virus 4 Not Detected (Not Detect); Respiratory Syncytial Virus Not Detected (Not Detect)
[2017-12-06] MEDS ORDERED: 0.9 % Sodium Chloride 1,000 ML IVC SCH ×2 (20:45)
[2017-12-06] MEDS: Budesonide/Formoterol 160/4.5 MDI IH SCH (21:12)
[2017-12-07 01:41] LABS: Basophils # 0.1 K/mcL (0.0-0.2); Basophils % 0.5 %; Eosinophils # 0.1 K/mcL (0.0-0.6); Hematocrit 42.4 % (37.5-50.1); Hemoglobin 13.9 g/dL (12.9-16.9); Immature Granulocytes % 0.6 % (0-4); Lymphocytes # 2.1 K/mcL (0.6-4.6); Lymphocytes % 19.1 %; Mean Corpuscular HGB Conc 32.8 g/dL (31.6-35.5); Mean Corpuscular Hemoglobin 28.7 pg (28.0-33.3); Mean Corpuscular Volume 87.4 fL (83.0-100.0); Monocytes # 1.2 K/mcL (0.0-1.3); Neutrophils # 7.5 K/mcL (1.6-8.9); Platelet Count 203 K/mcL (140-400); Red Blood Count 4.85 M/mcL (4.19-5.50); Red Cell Distribution Width 15.5 % (11.5-14.5); Segmented Neutrophils % 67.8 %
[2017-12-07 01:46] LABS: INR 1.1; Prothrombin Time 11.6 Seconds (9.4-12.1)
[2017-12-07 01:49] LABS: Activated Partial Thrombo Time 36.9 Seconds (26.0-36.0)
[2017-12-07 02:01] LABS: Alanine Aminotransferase 13 Units/L (7-52); Albumin 3.8 g/dL (3.5-5.7); Albumin/Globulin Ratio 1.4 (1.1-2.2); Alkaline Phosphatase 86 Units/L (34-104); Aspartate Amino Transferase 15 Units/L (13-39); BUN/Creatinine Ratio 10 (6-26); Bilirubin,Total 0.8 mg/dL (0.3-1.0); Blood Urea Nitrogen 9 mg/dL (6-20); Calcium 9.1 mg/dL (8.6-10.3); Carbon Dioxide 29 mEq/L (23-29); Chloride 104 mEq/L (98-107); Chol/HDL Ratio 2.9 (0-4.9); Cholesterol 133 mg/dL (< 200); Globulin 2.7 g/dL (2.4-3.5); Glucose 84 mg/dL (70-105); HDL Cholesterol 46 mg/dL (40-59); LDL Cholesterol,Calculated 69 mg/dL (0-99); Magnesium 1.7 mg/dL (1.6-2.6); Osmolality,Calculated 286 (280-300); Potassium 3.2 mEq/L (3.5-5.1); Sodium 139 mEq/L (136-145); Total Protein 6.5 g/dL (6.4-8.9); Triglycerides 92 mg/dL (< 150); eGFR For African Americans > 60 (> 60); eGFR For Non-African Americans > 60 (> 60)
[2017-12-07] MEDS: Ipratropium/Albuterol Neb 3 ML IH SCH ×2 (03:46→10:47)
[2017-12-07 06:13] LABS: Hepatitis A Antibody IgM Nonreactive (Nonreactive); Hepatitis B Core IgM Nonreactive (Nonreactive)
[2017-12-07] MEDS ORDERED: Metoprolol XL (24 HR) Succ 25 MG TAB.ER.24H PO SCH (09:00)
[2017-12-07] MEDS ORDERED: Nicotine 14 MG PATCH.TD24 TD SCH (09:00)
[2017-12-07] MEDS ORDERED: Aspirin Enteric Coated 81 MG Tablet PO SCH (09:00)
[2017-12-07] MEDS ORDERED: Furosemide 20 MG TABLET PO SCH (09:00)
[2017-12-07 09:26] LABS: Estimated Average Glucose 137 mg/dl; Hemoglobin A1C 6.4 %
[2017-12-07] MEDS: Budesonide/Formoterol 160/4.5 MDI IH SCH (10:47)
[2017-12-07 11:38] VITALS: BP 110/74
[2017-12-07 11:59] LABS: Hepatitis B Surface Antigen Nonreactive (Nonreactive)
[2017-12-07 12:00] LABS: Hepatitis C Virus Antibody Reactive (Nonreactive)
--- NOTE | 2017-12-07 15:53 | Discharge Summary ---
- NOTES TO OUTPATIENT PROVIDER Notes to Outpatient Provider: Pt left AMA Orders not resulted at time of discharge: Pending orders 12/06/17 13:39 Culture,Blood [BC] Routine 12/06/17 13:45 Culture,Blood,Additional [BC] Routine Date of Encounter: 12/07/17 Time of Encounter: 09:10 - Discharge Diagnosis (1) Chest pain Priority: Primary Status: Acute Assessment and Plan: Pt denies chest pain since prior to arrival. Pt states that he did heroin within the last 2 days. Pain was not reproducible, but pt reports recent increased cough and URI symptoms, could be cause of chest pain. Pt had LHC 11/04/17 that showed angiographically normal coronary arteries, severe LV dysfunction EF 20% and nonischemic cardiomyopathy. [place] from 11/03 showed LVEF 30-35% with global LV systolic dysfunction. Newly reduced LV systolic function since 09/25/17. Pt left AMA prior to completing any testing. I discussed the risks of leaving and asked what could make him stay. He was adamant that he was leaving, did not give a reason and stated that he just wanted to leave. Qualifiers: Chest pain type: unspecified Qualified Code(s): R07.9 - Chest pain, unspecified (2) COPD (chronic obstructive pulmonary disease) Priority: Secondary Status: Chronic Assessment and Plan: Pt with possible mild exacerbation of COPD. Pt required supplemental 02 and reports recent URI symptoms including productive cough over his normal smoker's cough. He denies fever, chills. Pt denies needing refills on medications and states that he has 02 at home and "I can do breathing treatments at home." Pt left AMA. Qualifiers: COPD type: unspecified COPD Qualified Code(s): J44.9 - Chronic obstructive pulmonary disease, unspecified (3) Tobacco abuse Priority: Secondary Status: Chronic Assessment and Plan: Pt smokes approximately 1/2 PPD and denied need for replacement therapy. (4) DVT prophylaxis Priority: Secondary Status: Acute Assessment and Plan: Heparin gtt stopped. Discussed with cardiology ORTHODONTIST and did not see need for heparin gtt. Pt was ambulatory. (5) Elevated troponin Priority: Secondary Status: Acute Assessment and Plan: Mild, flat, adynamic elevation of troponin in the setting of mild COPD exacerbation and heroin use. Pt left AMA. Recent cardiac testing as above. (6) Leukocytosis Priority: Secondary Status: Acute Assessment and Plan: Resovled. Qualifiers: Leukocytosis type: unspecified Qualified Code(s): D72.829 - Elevated white blood cell count, unspecified (7) CHF (congestive heart failure) Priority: Secondary Status: Chronic Assessment and Plan: Stable, pt appeared to be euvolemic. Lungs were diminished with wheezing in posterior bases. Recent cardiac testing as above. Pt with nonischemic cardiomyopathy and reduced EF, global systolic dyfunction. Continue home dose of Lasix. Qualifiers: Heart failure type: systolic Heart failure chronicity: chronic Qualified Code(s): I50.22 - Chronic systolic (congestive) heart failure (8) Drug abuse and dependence Priority: Secondary Status: Chronic Assessment and Plan: Hx of chronic drug abuse. Pt. reports he snorted heroin two days ago. (9) HTN (hypertension) Priority: Secondary Status: Chronic Assessment and Plan: Chronic. Continue home medications. Qualifiers: Hypertension type: essential hypertension Qualified Code(s): I10 - Essential (primary) hypertension Hospital course: Mr. Brink is a 51 year old male who presented to the ED for chest pain. See H & P. Pt left AmA. Risks explained to pt, he states that he wants to go home. Pt was chest pain free and in no distress on discharge. - Time Spent with Patient Total time spent providing and/or coordinating discharge services: - Discharge Medications Home Medications: Albuterol Sulfate [Albuterol Inhaler] 2 puff IH Q6HR PRN 09/25/17 [History] Budesonide/Formoterol 160/4.5 [Symbicort 160/4.5] 1 puff IH BIDR 09/25/17 [ History] Tamsulosin HCl [Flomax] 0.4 mg PO DAILY 09/25/17 [History] Ipratropium/Albuterol Neb [Duoneb] 3 ml IH BID PRN 11/03/17 [History] Loratadine [Allergy Relief] 10 mg PO DAILY PRN 11/03/17 [History] Oxygen 2 l NS CONT 11/03/17 [History] traZODone [TraZODone] 50 mg PO HS PRN 11/03/17 [History] Furosemide [Lasix] 20 mg PO DAILY #30 tablet 11/12/17 [Rx] Lisinopril [Zestril] 5 mg PO DAILY #30 tablet 11/12/17 [Rx] Metoprolol XL (24 HR) Succ [Toprol Xl] 12.5 mg PO DAILY #30 tab.er.24h 11/12/17 [Rx] Potassium Chloride 10 meq PO DAILY #30 tab.er.prt 11/12/17 [Rx] Allergies/Adverse Reactions: 3 Allergy/AdvReac Type Severity Reaction Status Date / Time No Known Allergies Allergy Verified 12/06/17 11:20 Date of admission: 12/06/17 11:45 [facility] care physician: [facility] Consults: 12/06/17 12:18 Consult to Communications Lead [CONS] Routine Reason for Consult: Please assess patient for possible home needs and possible drug rehabilitation d/t self-reported heroin addiction. Discharging clinician: Maria Guadalupe Blunt Anticipated date of discharge: 12/07/17 - Constitutional Vitals: Temp Pulse Resp BP Pulse Ox 97.4 F L 88 16 110/74 92 12/07/17 11:36 12/07/17 11:36 12/07/17 11:36 12/07/17 11:36 12/07/17 11:36 General appearance: Present: cooperative, mild distress, A&O X 3, pleasant, no acute distress, answers questions appropriately - Head Head exam: Present: atraumatic, normal inspection, normocephalic - Eye Eye exam: Present: normal appearance, conjuntiva pink, sclera anicteric - Neck Neck exam general surgery: Present: supple, trachea midline. Absent: lymphadenopathy - Respiratory Respiratory exam: Present: decreased breath sounds, CTAB, wheezes. Absent: accessory muscle use, rales, respiratory distress, rhonchi - Cardiovascular Cardiovascular exam: Present: RRR, +S1, +S2. Absent: diastolic murmur, gallop, rubs, systolic murmur - GI/Abdominal GI/Abdominal exam: Present: normal bowel sounds, soft. Absent: distended, hepatomegaly, tenderness - Extremities Exam Extremities exam: Present: normal capillary refill, normal inspection, tenderness, warm, radial pulses palpable and symmetrical. Absent: calf tenderness, cyanotic, pedal edema - Neurological Exam Neurological exam: Present: alert, oriented X3, no focal deficits. Absent: facial droop, speech deficit - Skin Skin exam: Present: dry, intact, normal color, warm. Absent: rash - Patient Status Disposition: Left Against Medical Advice Condition: Good - Discharge Instructions Follow Up With: [facility] [Primary Care Provider] -
--- NOTE | 2017-12-07 18:54 | Electrocardiograph Report ---
[facility] Test Date: 2017-12-06 Pat Name: Yogi Brink Department: 102 Room: 3B55 Gender: M [employer]: : 1965 Requested By: Vasyl Solano Order Number: [id number] Reading MD: Aleks Vargas Measurements Intervals [place] Rate: 95 P: 78 KS: 142 QRS: 82 QRSD: 102 T: 96 QT: 347 QTc: 400 Interpretive Statements SINUS RHYTHM LEFT VENTRICULAR HYPERTROPHY AND ST-T CHANGE Electronically Signed On 12-07-2017 18:53:17 EDT by Aleks Vargas
== END 2017-12-07 13:05 | disposition left against medical advice (07) ==
LOC: EMEROO 10:13 → 3BNU 10:13
PROVIDERS: ADMIT Hospitalist; ATTEND Hospitalist

== ENCOUNTER 2019-07-16 01:30 | Inpatient (IN) ==
[2019-07-16] MEDS ORDERED: 0.9 % Sodium Chloride 1,000 ML IVC ONE ×2 (01:47→01:57)
[2019-07-16] MEDS ORDERED: *HR* LORazepam 2 MG/ML VIAL IVP ONE (01:47)
[2019-07-16] MEDS ORDERED: Naloxone 0.4 MG/ML INJ IVP ONE (01:47)
[2019-07-16] MEDS ORDERED: Ipratropium/Albuterol Neb 3 ML IH ONE (01:48)
[2019-07-16] MEDS ORDERED: cefTRIAXone 1,000 MG in Water for inj. (sterile) 10 ML IVP ONE (01:57)
[2019-07-16 02:17] LABS: Bilirubin,Urine Negative (Negative); Blood,Urine Negative (Negative); Clarity,Urine Clear (Clear); Color,Urine Yellow (Yellow); Glucose,Urine (UA) Normal (Normal); Ketones,Urine Negative (Negative); Leukocyte Esterase,Urine Negative (Negative); Nitrite,Urine Negative (Negative); Protein,Urine Trace mg/dL (Neg-Trace); Specific Gravity,Urine 1.015 (1.010-1.025); Urobilinogen,Urine Normal (Normal)
[2019-07-16 02:30] LABS: Basophils # 0.1 K/mcL (0.0-0.2); Basophils % 0.4 %; Eosinophils % 0.1 %; Hematocrit 47.1 % (37.5-50.1); Hemoglobin 15.7 g/dL (12.9-16.9); Immature Granulocytes % 0.9 % (0-4); Lymphocytes # 1.5 K/mcL (0.6-4.6); Lymphocytes % 6.3 %; Mean Corpuscular HGB Conc 33.3 g/dL (31.6-35.5); Mean Corpuscular Hemoglobin 30.2 pg (28.0-33.3); Mean Corpuscular Volume 90.6 fL (83.0-100.0); Mean Platelet Volume 11.5 fL (9.4-12.4); Monocytes # 1.9 K/mcL (0.0-1.3); Monocytes % 7.7 %; Neutrophils # 20.5 K/mcL (1.6-8.9); Platelet Count 208 K/mcL (140-400); Red Cell Distribution Width 13.5 % (11.5-14.5); Segmented Neutrophils % 84.6 %; White Blood Count 24.2 K/mcL (4.3-11.1)
[2019-07-16 02:33] LABS: Activated Partial Thrombo Time 29.3 Seconds (26.0-36.0)
[2019-07-16 02:39] LABS: Alanine Aminotransferase 30 Units/L (7-52); Albumin 4.9 g/dL (3.5-5.7); Albumin/Globulin Ratio 1.6 (1.1-2.2); Alkaline Phosphatase 94 Units/L (34-104); Aspartate Amino Transferase 22 Units/L (13-39); BUN/Creatinine Ratio 11 (6-26); Bilirubin,Direct 0.1 mg/dL (0.0-0.2); Bilirubin,Indirect 0.3 mg/dL (0.0-1.0); Bilirubin,Total 0.4 mg/dL (0.3-1.0); Blood Urea Nitrogen 21 mg/dL (6-20); Carbon Dioxide 23 mEq/L (23-29); Chloride 98 mEq/L (98-107); Creatine Kinase 274 Units/L (30-223); Ethanol < 10 mg/dL (Less than 10); Globulin 3.1 g/dL (2.4-3.5); Glucose 158 mg/dL (70-105); Osmolality,Calculated 290 (280-300); Potassium 4.2 mEq/L (3.5-5.1); Sodium 137 mEq/L (136-145); eGFR For African Americans 48 (> 60); eGFR For Non-African Americans 39 (> 60)
[2019-07-16] MEDS ORDERED: Lactulose Oral Soln 20 GM/30 ML UDC PO ONE (02:41)
[2019-07-16 02:43] LABS: VBG HCO3 25 mEq/L (21-27); VBG PCO2 77 mmHg (41-51); VBG PH 7.11 pH Units (7.32-7.42); VBG PO2 39 mmHg (25-50)
[2019-07-16 03:21] LABS: Troponin I < 0.03 ng/mL (< 0.04)
[2019-07-16 03:29] LABS: Amphetamine Screen,Urine Positive ng/mL (Cutoff=1000); Barbiturate Screen,Urine Negative ng/mL (Cutoff=200); Benzodiazepines Screen,Urine Negative ng/mL (Cutoff=200); Cannabinoid Screen,Urine Negative ng/mL (Cutoff = 50); Cocaine Screen,Urine Negative ng/mL (Cutoff= 300); Opiate Screen,Urine Positive ng/mL (Cutoff=300); Phencyclidine Screen,Urine Negative ng/mL (Cutoff=25)
[2019-07-16 03:52] LABS: Thyroid Stimulating Hormone 6.269 mcIU/mL (0.340-5.600)
[2019-07-16 04:53] LABS: VBG HCO3 26 mEq/L (21-27); VBG PCO2 54 mmHg (41-51); VBG PH 7.28 pH Units (7.32-7.42); VBG PO2 122 mmHg (25-50)
[2019-07-16] MEDS ORDERED: methylPREDNISolone 125 MG/2 ML VIAL IVP ONE (05:31)
[2019-07-16] MEDS ORDERED: Ondansetron ODT 4 MG TAB.RAPDIS SL PRN (08:36)
[2019-07-16] MEDS ORDERED: Naloxone 0.4 MG/ML INJ IVP PRN (08:36)
[2019-07-16] MEDS ORDERED: *HR* LORazepam 0.5 MG TABLET PO PRN (08:51)
[2019-07-16] MEDS ORDERED: Albuterol 2.5 MG/3 ML NEBULIZER IH PRN (08:51)
[2019-07-16] MEDS ORDERED: predniSONE 20 MG TABLET PO SCH (09:00)
[2019-07-16 09:58] LABS: Triiodothyronine (T3) Free 2.84 pg/mL (2.50-3.90)
[2019-07-16] MEDS: 0.9 % Sodium Chloride 1,000 ML IVC SCH (11:33)
[2019-07-16] MEDS: Ipratropium/Albuterol Neb 3 ML IH SCH ×3 (11:37→20:05)
[2019-07-16] MEDS: hydroCHLOROthiazide 25 MG TABLET PO SCH (14:04)
[2019-07-16] MEDS: Mag Hydrox/Al Hydrox/Simeth 30 ML UDC PO PRN (18:47)
[2019-07-16] MEDS: Lactulose Oral Soln 20 GM/30 ML UDC PO SCH (20:29)
[2019-07-17] MEDS: Ipratropium/Albuterol Neb 3 ML IH SCH ×7 (00:19→23:47)
[2019-07-17] MEDS: 0.9 % Sodium Chloride 1,000 ML IVC SCH (01:26)
[2019-07-17 06:59] LABS: Hematocrit 37.6 % (37.5-50.1); Hemoglobin 12.5 g/dL (12.9-16.9); Mean Corpuscular HGB Conc 33.2 g/dL (31.6-35.5); Mean Corpuscular Hemoglobin 30.6 pg (28.0-33.3); Mean Corpuscular Volume 92.2 fL (83.0-100.0); Mean Platelet Volume 12.1 fL (9.4-12.4); Platelet Count 164 K/mcL (140-400); Red Blood Count 4.08 M/mcL (4.19-5.50); Red Cell Distribution Width 13.9 % (11.5-14.5); White Blood Count 18.7 K/mcL (4.3-11.1)
[2019-07-17 07:15] LABS: Alanine Aminotransferase 27 Units/L (7-52); Albumin 4.3 g/dL (3.5-5.7); Albumin/Globulin Ratio 1.7 (1.1-2.2); Alkaline Phosphatase 71 Units/L (34-104); Aspartate Amino Transferase 28 Units/L (13-39); BUN/Creatinine Ratio 24 (6-26); Bilirubin,Total 0.5 mg/dL (0.3-1.0); Blood Urea Nitrogen 30 mg/dL (6-20); Calcium 9.8 mg/dL (8.6-10.3); Carbon Dioxide 26 mEq/L (23-29); Chloride 102 mEq/L (98-107); Globulin 2.5 g/dL (2.4-3.5); Glucose 90 mg/dL (70-105); Osmolality,Calculated 292 (280-300); Potassium 4.1 mEq/L (3.5-5.1); Sodium 138 mEq/L (136-145); Total Protein 6.8 g/dL (6.4-8.9); eGFR For African Americans > 60 (> 60); eGFR For Non-African Americans 60 (> 60)
[2019-07-17] MEDS: levoFLOXacin 750 MG/150 ML 750 MG/150 ML BAG IVPB SCH (07:38)
[2019-07-17] MEDS: hydroCHLOROthiazide 25 MG TABLET PO SCH (07:41)
[2019-07-17] MEDS: Mag Hydrox/Al Hydrox/Simeth 30 ML UDC PO PRN (07:41)
[2019-07-17] MEDS: predniSONE 20 MG TABLET PO SCH (07:42)
[2019-07-17] MEDS ORDERED: *HR* Metoprolol 5 MG/5 ML VIAL IVP ONE (15:32)
[2019-07-17] MEDS: Lactulose Oral Soln 20 GM/30 ML UDC PO SCH (20:27)
[2019-07-18] MEDS: Ipratropium/Albuterol Neb 3 ML IH SCH ×4 (03:33→16:26)
[2019-07-18 06:08] LABS: Hematocrit 39.6 % (37.5-50.1); Hemoglobin 13.5 g/dL (12.9-16.9); Mean Corpuscular HGB Conc 34.1 g/dL (31.6-35.5); Mean Corpuscular Hemoglobin 30.4 pg (28.0-33.3); Mean Corpuscular Volume 89.2 fL (83.0-100.0); Mean Platelet Volume 11.6 fL (9.4-12.4); Platelet Count 175 K/mcL (140-400); Red Blood Count 4.44 M/mcL (4.19-5.50); Red Cell Distribution Width 13.9 % (11.5-14.5); White Blood Count 15.8 K/mcL (4.3-11.1)
[2019-07-18 06:30] LABS: BUN/Creatinine Ratio 25 (6-26); Blood Urea Nitrogen 30 mg/dL (6-20); Calcium 9.8 mg/dL (8.6-10.3); Carbon Dioxide 27 mEq/L (23-29); Chloride 100 mEq/L (98-107); Glucose 101 mg/dL (70-105); Osmolality,Calculated 294 (280-300); Potassium 3.9 mEq/L (3.5-5.1); Sodium 139 mEq/L (136-145); eGFR For African Americans > 60 (> 60); eGFR For Non-African Americans > 60 (> 60)
[2019-07-18] MEDS: hydroCHLOROthiazide 25 MG TABLET PO SCH (07:54)
[2019-07-18] MEDS: Lactulose Oral Soln 20 GM/30 ML UDC PO SCH ×2 (07:54→07:57)
[2019-07-18] MEDS: predniSONE 20 MG TABLET PO SCH (07:54)
[2019-07-18] MEDS: levoFLOXacin 750 MG/150 ML 750 MG/150 ML BAG IVPB SCH (07:54)
[2019-07-18] MEDS ORDERED: amLODIPine 5 MG TABLET PO SCH (09:00)
[2019-07-18 14:38] VITALS: BP 121/75
== END 2019-07-18 16:33 | disposition home or self-care (01) | DRG 871 ==
LOC: EMEROOARM 01:30 → 2ANU 01:30 → SUATTDRO 06:30 → 2ANU 06:38
PROVIDERS: ADMIT Family Medicine; ATTEND Family Medicine